=== PATIENT | female | born 1970 | race Caucasian/White ===

== ENCOUNTER 2020-12-11 13:41 | Outpatient (REF) | payer OTHER, SELFPAY ==
[2020-12-11 15:56] LABS: Cholesterol 173 mg/dL; HDL Cholesterol 62 mg/dL; LDL Cholesterol Calculated 99 mg/dl; Triglycerides 62 mg/dL
[2020-12-11 15:57] LABS: MANUAL DIFF FLAG NO
[2020-12-11 16:02] LABS: Basophils Percent Auto 0.7 % (0-2); Eosinophils Absolute Auto 0.2 X10*3/uL (0.0-0.4); Eosinophils Percent Auto 2.4 % (0-4); Hematocrit 40.5 % (37-47); Imm Gran Abs Auto 0.01 X10*3/uL (0.00-0.03); Imm Gran Pct Auto 0.2 % (0.0-0.4); Lymphocytes Absolute Auto 1.1 X10*3/uL (1.2-4.9); Lymphocytes Percent Auto 17.6 % (20-40); Mean Corpuscular HGB Conc 32.1 g/dl (31.0-35.0); Mean Corpuscular Hemoglobin 29.6 pg (27.0-33.0); Mean Corpuscular Volume 92.3 fL (80-98); Mean Platelet Volume 11.5 fL (9.4-12.3); Monocytes Absolute Auto 0.7 X10*3/uL (0.1-1.2); Monocytes Percent Auto 11.7 % (2-11); Neutrophils Absolute Auto 4.1 X10*3/uL (2.0-8.3); Neutrophils Percent Auto 67.4 % (45-73); Platelet Count 308 X10*3/uL (160-400); Red Blood Count 4.39 X10*6/uL (4.20-5.50); Red Cell Distribution Width 13.7 % (11.0-16.0); White Blood Count 6.1 X10*3/uL (4.8-10.8)
[2020-12-12 09:21] LABS: SARS COV2 IgG Negative (Negative)
== END 2020-12-11 13:42 | disposition home or self-care (01) ==
LOC: HO.LAB 13:41
PROVIDERS: PCP Internal Medicine; Visit Provider Internal Medicine
DX: Z00.00 Encounter for general adult medical examination without abnormal findings (principal); E11.9 Type 2 diabetes mellitus without complications; Z20.822 Contact with and (suspected) exposure to COVID-19
CPT/HCPCS: 36415; 80061; 85025; 86769

== ENCOUNTER 2021-02-01 10:33 | Outpatient (REF) | payer OTHER, SELFPAY | END 2021-02-01 10:34 | disposition home or self-care (01) | LOC: HO.LAB 10:33 | PROVIDERS: Visit Provider Nurse Practitioner Family | DX: J01.90 Acute sinusitis, unspecified (principal); R11.0 Nausea; Z20.822 Contact with and (suspected) exposure to COVID-19 | CPT/HCPCS: 36415; U0003; U0005 ==

== ENCOUNTER 2021-02-18 12:22 | Outpatient (REF) | payer OTHER, SELFPAY ==
--- NOTE | ~2021-02-18 | XR_ITS ---
EXAMINATION: XR CHEST CLINICAL INFORMATION: Shortness of breath COMPARISON: None TECHNIQUE: 2 views of the chest were obtained. FINDINGS: The cardiomediastinal silhouette is within normal limits. The lungs are well expanded. There is no focal consolidation, edema, or effusion. No pneumothorax. No acute osseous abnormality. XR/XR chest 2V IMPRESSION: No acute pulmonary process.
== END 2021-02-18 12:23 | disposition home or self-care (01) ==
LOC: HO.HMGCX 12:22
PROVIDERS: Visit Provider Nurse Practitioner Family
DX: R06.02 Shortness of breath (principal); R00.2 Palpitations; J01.90 Acute sinusitis, unspecified
CPT/HCPCS: 71046

== ENCOUNTER 2021-03-10 15:58 | Outpatient (REF) | payer OTHER, SELFPAY ==
[2021-03-10 16:28] LABS: MANUAL DIFF FLAG NO
[2021-03-10 16:37] LABS: Basophils Percent Auto 0.8 % (0-2); Eosinophils Absolute Auto 0.1 X10*3/uL (0.0-0.4); Eosinophils Percent Auto 2.2 % (0-4); Hematocrit 38.1 % (37-47); Hemoglobin 12.3 g/dl (12.0-16.0); Imm Gran Abs Auto 0.01 X10*3/uL (0.00-0.03); Imm Gran Pct Auto 0.3 % (0.0-0.4); Lymphocytes Absolute Auto 1.4 X10*3/uL (1.2-4.9); Lymphocytes Percent Auto 36.9 % (20-40); Mean Corpuscular HGB Conc 32.3 g/dl (31.0-35.0); Mean Corpuscular Hemoglobin 29.3 pg (27.0-33.0); Mean Corpuscular Volume 90.7 fL (80-98); Mean Platelet Volume 10.9 fL (9.4-12.3); Monocytes Absolute Auto 0.6 X10*3/uL (0.1-1.2); Monocytes Percent Auto 16.7 % (2-11); Neutrophils Absolute Auto 1.6 X10*3/uL (2.0-8.3); Neutrophils Percent Auto 43.1 % (45-73); Platelet Count 330 X10*3/uL (160-400); Red Cell Distribution Width 13.5 % (11.0-16.0); White Blood Count 3.7 X10*3/uL (4.8-10.8)
[2021-03-10 17:07] LABS: Anion Gap 13 (12-20); Blood Urea Nitrogen 21 mg/dL (9-16); Carbon Dioxide 24 mmol/L (22-29); Chloride 108 mmol/L (96-108); Estimated Glomerular Filt Rate 58; Glucose Random 89 mg/dL (60-115); Potassium 4.1 mmol/L (3.3-5.1); Sodium 141 mmol/L (135-145)
[2021-03-10 17:14] LABS: Calcium 10.8 mg/dL (8.4-10.2)
[2021-03-10 17:29] LABS: Thyroid Stimulating Hormone 0.52 uIU/mL (0.32-4.0)
== END 2021-03-10 15:59 | disposition home or self-care (01) ==
LOC: HO.LAB 15:58
PROVIDERS: PCP Internal Medicine; Visit Provider Internal Medicine
DX: Z00.00 Encounter for general adult medical examination without abnormal findings (principal); E03.9 Hypothyroidism, unspecified; R51.9 Headache, unspecified
CPT/HCPCS: 36415; 80048; 84443; 85025

== ENCOUNTER → 2021-03-17 13:24 | Outpatient (BNVA) | payer OTHER, SELFPAY | PROVIDERS: PCP Internal Medicine; Visit Provider Internal Medicine | DX: R00.2 Palpitations (principal); R07.89 Other chest pain; R06.02 Shortness of breath; U07.1 COVID-19 | CPT/HCPCS: 99202 ==

== ENCOUNTER 2021-06-16 12:21 | Outpatient (REF) | payer OTHER, SELFPAY ==
[2021-06-18 08:09] LABS: SARS COV2 IgG Positive (Negative)
== END 2021-06-16 12:22 | disposition home or self-care (01) ==
LOC: HO.LAB 12:21
PROVIDERS: PCP Internal Medicine; Visit Provider Internal Medicine
DX: Z20.822 Contact with and (suspected) exposure to COVID-19 (principal)
CPT/HCPCS: 36415; 86769

== ENCOUNTER 2021-08-27 07:46 | Outpatient (REF) | payer OTHER, SELFPAY ==
--- NOTE | ~2021-08-27 | MM_ITS ---
EXAMINATION: MM SCREENING DIGITAL BREAST TOMOSYNTHESIS, BILATERAL CLINICAL INFORMATION: Screening. Asymptomatic. The lifetime risk of breast cancer based on the Tyrer-Cuzick Model is 7%. COMPARISON: Mammography: 04/03/2019, 03/06/2018, 02/22/2018, 02/05/2017, 10/26/2016 TECHNIQUE: Digital breast tomosynthesis is performed in both the craniocaudal and mediolateral oblique views along with computer-aided detection (CAD). Synthesized 2D images are generated from the tomosynthesis. FINDINGS: The breasts are heterogeneously dense, which may obscure small masses (ACR BI-RADS breast composition Category c). The denser breast tissue composition is in the upper outer quadrants. Parenchymal pattern is similar to prior studies. There is no developing density or interval mass or architectural abnormality. There are scattered punctate calcifications again seen, greater on the right. The axilla and skin contours are unremarkable. No significant changes. MM/MM tomosynthesis screening BI IMPRESSION: No mammographic evidence of malignancy. ASSESSMENT: BI-RADS 2: Benign RECOMMENDATION: Routine annual mammography screening. This patient's information was entered into a reminder system with a target due date for their next mammogram.
== END 2021-08-27 07:47 | disposition home or self-care (01) ==
LOC: HO.MAMMO 07:46
PROVIDERS: PCP Internal Medicine; Visit Provider Internal Medicine
DX: Z12.31 Encounter for screening mammogram for malignant neoplasm of breast (principal)
CPT/HCPCS: 77063; 77067

== ENCOUNTER 2021-10-01 12:51 | Outpatient (REF) | payer OTHER, SELFPAY ==
[2021-10-01 14:04] LABS: C Reactive Protein 0.55 mg/dL (< or = 0.50)
[2021-10-01 14:45] LABS: Folate 14.8 ng/mL (> or = 4.0); Vitamin B12 419 pg/mL (200-900)
[2021-10-01 14:54] LABS: Erythrocyte Sedimentation Rate 8 MM/HR (0-20)
[2021-10-02 07:51] LABS: SARS COV2 IgG Positive (Negative)
[2021-10-05 05:51] LABS: Copper, serum 133 mcg/dL (70-175)
[2021-10-05 14:46] LABS: Anti Nuclear Antibody Pattern Nuclear, Speckled; Anti Nuclear Antibody Screen POSITIVE (NEGATIVE)
== END 2021-10-01 12:52 | disposition home or self-care (01) ==
LOC: HO.LAB 12:51
PROVIDERS: PCP Internal Medicine; Visit Provider Nurse Practitioner Family
DX: D72.819 Decreased white blood cell count, unspecified (principal); L40.9 Psoriasis, unspecified; R21 Rash and other nonspecific skin eruption; U07.1 COVID-19
CPT/HCPCS: 36415; 82525; 82550; 82607; 82746; 85652; 86038; 86039; 86140; 86769

== ENCOUNTER 2021-11-17 14:12 | Outpatient (REF) | payer OTHER, SELFPAY ==
[2021-11-17 15:24] LABS: Influenza A PCR NEGATIVE (Negative); Influenza B PCR NEGATIVE (Negative); Resp Syncy Virus RNA Qual PCR NEGATIVE (Negative); SARS COV2 PCR INHOUSE POSITIVE (Negative)
== END 2021-11-17 14:13 | disposition home or self-care (01) ==
LOC: HO.LNP 14:12
PROVIDERS: Visit Provider Physician Assistant
DX: Z20.822 Contact with and (suspected) exposure to COVID-19 (principal); H66.91 Otitis media, unspecified, right ear
CPT/HCPCS: 0241U

== ENCOUNTER → 2022-06-08 09:54 | Outpatient (BNVA) | payer OTHER, BC, SELFPAY | PROVIDERS: PCP Internal Medicine; Visit Provider Physician Assistant | DX: S46.811A Strain of other muscles, fascia and tendons at shoulder and upper arm level, right arm, initial encounter (principal); S46.311A Strain of muscle, fascia and tendon of triceps, right arm, initial encounter | CPT/HCPCS: 99202 ==

== ENCOUNTER 2022-07-04 19:36 | Outpatient (REF) | payer OTHER, BC, SELFPAY ==
--- NOTE | ~2022-07-04 | MR_ITS ---
EXAMINATION: MR SHOULDER WITHOUT CONTRAST, RIGHT CLINICAL INFORMATION: Right shoulder pain, strain COMPARISON: None TECHNIQUE: MRI of the shoulder without contrast was performed on a high-field scanner. FINDINGS: ROTATOR CUFF: Mild supraspinatus tendinosis. Linear interstitial partial tear of the distal subscapularis tendon. No muscle atrophy or fatty infiltration. BICEPS: Normal. CORACOACROMIAL ARCH: The undersurface of the acromion is laterally downsloping with no subacromial spur. Minimal acromioclavicular osteoarthritis. LABRUM/CAPSULE: Normal. GLENOHUMERAL JOINT/MARROW: Normal. MR/MR shoulder RT wo con IMPRESSION: Linear interstitial partial tear of the distal subscapularis tendon. Mild supraspinatus tendinosis. Laterally downsloping acromion.
== END 2022-07-04 19:37 | disposition home or self-care (01) ==
LOC: HO.MRI 19:36
PROVIDERS: Visit Provider Physician Assistant
DX: S46.311A Strain of muscle, fascia and tendon of triceps, right arm, initial encounter (principal); S46.001A Unspecified injury of muscle(s) and tendon(s) of the rotator cuff of right shoulder, initial encounter
CPT/HCPCS: 73221

== ENCOUNTER → 2022-07-07 12:09 | Outpatient (BNVA) | payer OTHER, BC, SELFPAY | PROVIDERS: PCP Internal Medicine; Visit Provider Orthopaedic Surgery | DX: S46.811A Strain of other muscles, fascia and tendons at shoulder and upper arm level, right arm, initial encounter (principal); M75.41 Impingement syndrome of right shoulder | CPT/HCPCS: 99212 ==

== ENCOUNTER → 2022-08-18 08:26 | Outpatient (BNVA) | payer OTHER, BC, SELFPAY | PROVIDERS: PCP Internal Medicine; Visit Provider Orthopaedic Surgery | DX: S46.811D Strain of other muscles, fascia and tendons at shoulder and upper arm level, right arm, subsequent encounter (principal); M75.41 Impingement syndrome of right shoulder | CPT/HCPCS: 99212; J1100 ==

== ENCOUNTER → 2022-09-29 15:32 | Outpatient (BNVA) | payer OTHER, BC, SELFPAY | PROVIDERS: PCP Internal Medicine; Visit Provider Orthopaedic Surgery | DX: M75.41 Impingement syndrome of right shoulder (principal); S46.811A Strain of other muscles, fascia and tendons at shoulder and upper arm level, right arm, initial encounter; X58.XXXA Exposure to other specified factors, initial encounter; Y93.9 Activity, unspecified; Y92.69 Other specified industrial and construction area as the place of occurrence of the external cause; Y99.0 Civilian activity done for income or pay | CPT/HCPCS: 99212 ==

== ENCOUNTER 2022-10-12 17:00 | Outpatient (RCR) | payer OTHER, BC, SELFPAY ==
--- NOTE | 2022-07-07 12:10 | MHC.PT.EP ---
[facility] [place] Office [place] Office [place] Office [address] [phone] F: [phone] F: [phone] F: [phone] F: [phone] Physical Therapy Plan of Care Date of Evaluation: Date of Surgery: N/A Diagnosis: (R) shoulder pain strain of other muscles, fascia and tendons at shoulder and upper arm (R) Assessment: Patient presents with (R) shoulder pain with confirmed on MRI partial subscapularis tear and supraspinatus tendinosis following lifting injury at work. She presents with (R) shoulder weakness, limited AROM , pain and impaired functional mobility with difficulty lifting and performing work duties, reaching overhead, and sleeping on involved side. Currently she is out of work. She will benefit from skilled physical therapy to restore to prior level of function and resume full duty work. Frequency and Duration: The patient will be seen 2x/week for 6 weeks Short Term Goals: 3 weeks Patient is able to lift R shoulder abduction AROM 180 degrees to reach high shelves. Patient demonstrates compliance and independence with HEP. Rehab Services Aide Goals: 6 weeks Patient presents with 5/5 strength (R) shoulder abduction to return to work full duty. Patient is able to lift 30 lbs waist to shoulder height for lifting at work with pain less than 3/10. Patient demonstrates self management of symptoms and independence with HEP. Treatment Plan: Modalities to reduce pain, spasms and effusion. Manual therapy to restore motion and function. Therapeutic exercise to improve strength and flexibility. Neuromuscular re-education for posture and balance. Therapeutic activities to return to functional activities of daily living. Electronically signed by: Hue Inman PT Please sign and return to therapist. Thank you for your referral.
--- NOTE | 2022-11-15 17:16 | MHC.PT.DC ---
[facility] [place] Office [place] Office [place] Office [address] [phone] F: [phone] F: [phone] F: [phone] F: [phone] Physical Therapy Discharge Report Diagnosis: (R) shoulder pain strain of other muscles, fascia and tendons at shoulder and upper arm (R) Date of Surgery: N/A Date of Evaluation: 07/07/22 Date of Discharge: 11/15/22 Treatments to Date: 13 Cancellations to Date: 13 No Shows to Date: 6 Discharge Status: Visit Non-compliance Discharge Summary: Per [facility] [place] policy the patient is being discharged for visit non-compliance. Per last assessment on 09/28/22: pt stated since starting PT she feels 80% better. pt still complains of persistent intermittent R shoulder pain as a result of a partial-thickness RTC tear. She is limited w/ end-range reaching in both abduction and flexion planes, lifting, pushing, and upper body dressing. 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 pt does have follow-up w/ Dr. Tanner (orthopedic) tomorrow. pt is expected to be able to lift 70# to return to work. She currently can tolerate 30# lifts x5 reps. pt has achieved all short term goals and is progressing towards achieving all senior living goals. pt reported a 20 point improvement on the self-reported outcome measure, SPADI compared to the initial eval. pt would continue to benefit from skilled PT intervention for an additional 2x/wk for 4 more weeks to continue to progress towards achieving all senior living goals and promote a full and safe return to regular duty at work to prevent future injury and healthcare burden. Electronically signed by: Peg Ojeda PT, DPT Please sign and return to therapist. Thank you for your referral.
== END 2022-11-15 17:16 | disposition home or self-care (01) ==
LOC: HO.PT 17:00
PROVIDERS: PCP Internal Medicine; Visit Provider Physician Assistant
DX: S46.811A Strain of other muscles, fascia and tendons at shoulder and upper arm level, right arm, initial encounter (principal); S46.311A Strain of muscle, fascia and tendon of triceps, right arm, initial encounter
CPT/HCPCS: 97110; 97140; 97161; 97164; 97530

== ENCOUNTER 2022-10-14 10:52 | Outpatient (REF) | payer BC, MEDICAID, SELFPAY ==
[2022-10-14 11:08] LABS: MANUAL DIFF FLAG NO
[2022-10-14 11:52] LABS: Basophils Percent Auto 0.5 % (0-2); Eosinophils Absolute Auto 0.1 X10*3/uL (0.0-0.4); Eosinophils Percent Auto 2.4 % (0-4); Hematocrit 38.8 % (37.0-47.0); Hemoglobin 12.4 g/dl (12.0-16.0); Imm Gran Abs Auto 0.01 X10*3/uL (0.00-0.03); Imm Gran Pct Auto 0.3 % (0.0-0.4); Lymphocytes Absolute Auto 1.1 X10*3/uL (1.2-4.9); Lymphocytes Percent Auto 28.9 % (20-40); Mean Corpuscular Volume 93.7 fL (80.0-98.0); Mean Platelet Volume 11.4 fL (9.4-12.3); Monocytes Absolute Auto 0.5 X10*3/uL (0.1-1.2); Monocytes Percent Auto 14.1 % (2-11); Neutrophils Percent Auto 53.8 % (45-73); Platelet Count 275 X10*3/uL (160-400); Red Blood Count 4.14 X10*6/uL (4.20-5.50); Red Cell Distribution Width 13.4 % (11.0-16.0); White Blood Count 3.7 X10*3/uL (4.8-10.8)
[2022-10-14 14:23] LABS: Alanine Aminotransferase 27 U/L (0-31); Albumin Level 4.5 g/dL (3.5-5.0); Alkaline Phosphatase 46 U/L (39-117); Anion Gap 11 (12-20); Aspartate Amino Transferase 31 U/L (5-31); Bilirubin Total 0.6 mg/dL (0.0-1.0); Blood Urea Nitrogen 14 mg/dL (9-16); Calcium 10.3 mg/dL (8.4-10.2); Carbon Dioxide 26 mmol/L (22-29); Chloride 104 mmol/L (96-108); Cholesterol 170 mg/dL; Estimated Glomerular Filt Rate > 60; Glucose Fasting 87 mg/dL (60-99); HDL Cholesterol 61 mg/dL; LDL Cholesterol Calculated 100 mg/dl; Potassium 4.6 mmol/L (3.3-5.1); Sodium 136 mmol/L (135-145); Thyroid Stimulating Hormone 0.97 uIU/mL (0.32-4.0); Total Protein 7.3 g/dL (6.5-8.0); Triglycerides 46 mg/dL
== END 2022-10-14 10:53 | disposition home or self-care (01) ==
LOC: HO.LAB 10:52
PROVIDERS: PCP Internal Medicine; Visit Provider Internal Medicine
DX: Z13.0 Encounter for screening for diseases of the blood and blood-forming organs and certain disorders involving the immune mechanism (principal); E78.5 Hyperlipidemia, unspecified; E03.9 Hypothyroidism, unspecified; I10 Essential (primary) hypertension
CPT/HCPCS: 36415; 80053; 80061; 84443; 85025

== ENCOUNTER 2022-11-04 17:53 | Outpatient (REF) | payer BC, MEDICAID, SELFPAY ==
--- NOTE | ~2022-11-04 | MR_ITS ---
EXAMINATION: MR CERVICAL SPINE WITHOUT CONTRAST CLINICAL INFORMATION: Radiculopathy, cervical region. COMPARISON: None available. TECHNIQUE: MRI of the cervical spine was performed using routine sequences without contrast. FINDINGS: The cervical vertebral bodies maintain normal heights. There is mild anterolisthesis of C4 on C5 and mild retrolisthesis of C6 on C7. Disc height loss appears moderate to severe at C5-C6 and C6-C7. Mild endplate edema is seen across the C6-C7 level. The cervical cord signal appears normal. The imaged portions of the intracranial contents and extraspinal soft tissues appear normal. SPINAL LEVELS: C2-C3: No posterior disc abnormality. Mild right facet arthropathy. No spinal canal or neural foraminal stenosis. C3-C4: No posterior disc abnormality. Moderate to severe right more than left facet arthropathy. No spinal canal or neural foraminal stenosis. C4-C5: Mild disc osteophyte complex with uncovertebral hypertrophy and severe bilateral facet arthropathy. Mild spinal canal stenosis and moderate to severe left and moderate right neural foraminal stenosis. C5-C6: Disc osteophyte complex with uncovertebral hypertrophy and severe right and moderate left facet arthropathy resulting in mild spinal canal stenosis and mild to moderate right and mild left neural foraminal stenosis. C6-C7: Mild disc osteophyte complex with left more than right uncovertebral hypertrophy and mild right facet arthropathy resulting in mild spinal canal stenosis and severe left and moderate right neural foraminal stenosis. C7-T1: No posterior disc abnormality. No spinal canal or neural foraminal stenosis. MR/MR cervical spine wo con IMPRESSION: Multilevel degenerative spondylosis without significant narrowing of the spinal canal. Neural foraminal stenosis appears moderate to severe on the left and moderate on the right at C4-C5, mild to moderate on the right at C5-C6, and severe on the left and moderate on the right at C6-C7.
== END 2022-11-04 17:54 | disposition home or self-care (01) ==
LOC: HO.MRI 17:53
PROVIDERS: Visit Provider Orthopaedic Surgery
DX: M54.12 Radiculopathy, cervical region (principal)
CPT/HCPCS: 72141

== ENCOUNTER → 2022-11-24 15:28 | Outpatient (BNVA) | payer BC, MEDICAID, SELFPAY | PROVIDERS: PCP Internal Medicine; Visit Provider Orthopaedic Surgery | DX: Z13.89 Encounter for screening for other disorder (principal) ==

== ENCOUNTER 2022-12-23 15:00 | Outpatient (RCR) | payer BC, MEDICAID, SELFPAY | END 2023-05-08 13:51 | disposition home or self-care (01) | LOC: HO.PT 15:00 | PROVIDERS: Visit Provider Physician Assistant Surgical | DX: M54.2 Cervicalgia (principal); M79.601 Pain in right arm | CPT/HCPCS: 97110; 97140; 97161 ==

== ENCOUNTER 2023-01-10 17:54 | Outpatient (REF) | payer BC, MEDICAID, SELFPAY ==
[2023-01-10 18:57] LABS: Influenza A PCR NEGATIVE (Negative); Influenza B PCR NEGATIVE (Negative); Resp Syncy Virus RNA Qual PCR NEGATIVE (Negative); SARS COV2 PCR INHOUSE NEGATIVE (Negative)
== END 2023-01-10 17:55 | disposition home or self-care (01) ==
LOC: HO.LNP 17:54
PROVIDERS: Visit Provider Nurse Practitioner Family
DX: R09.89 Other specified symptoms and signs involving the circulatory and respiratory systems (principal); Z20.822 Contact with and (suspected) exposure to COVID-19
CPT/HCPCS: 0241U

== ENCOUNTER → 2023-02-10 09:35 | Outpatient (BNVA) | payer BC, MEDICAID, SELFPAY | PROVIDERS: PCP Internal Medicine; Visit Provider Orthopaedic Surgery | DX: Z13.89 Encounter for screening for other disorder (principal) ==

== ENCOUNTER 2023-06-02 12:53 | Outpatient (AMB) | payer BC, MEDICAID, SELFPAY ==
[2023-06-02 12:54] VITALS: BP 120/80; PULSE 60; O2SAT 98; BMI 32.9
--- NOTE | 2023-06-02 12:54 | MHC.PC.OV ---
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: No Accompanied by: Self / Same As Patient Allergies cephalexin [Keflex] Allergy (Unknown, Verified 06/02/23 12:55) Unknown codeine Allergy (Unknown, Verified 06/02/23 12:55) Unknown Sulfa (Sulfonamide Antibiotics) Allergy (Unknown, Verified 06/02/23 12:55) Vertigo, rash Medication List - Last Reconciled 06/02/23 by Santy Flores MD acyclovir 5% 1 appl topical 6XD albuterol sulfate 90 mcg/actuation (ProAir HFA) 2 puffs inhalation Q4-6H PRN 30 days alclometasone 0.05% topical apremilast (Otezla) 30 mg PO BID epinephrine (EpiPen 2-Gabino) 0.3 mg (0.3 mL) IM ONCE PRN fenofibrate nanocrystallized 145 mg PO DAILY ibuprofen 800 mg PO TID ketoconazole 2% 1 appl topical lorazepam 0.5 mg PO BEDTIME PRN meloxicam 15 mg PO DAILY triamcinolone acetonide 0.1% 1 appl topical BID Tobacco use date assessed: 06/02/23 Dental Screening Dental Screen Date: 06/02/23 Did you have a dental visit in the last 12 months?: Yes Did you have a dental problem in the last 6 months where you did not have access to dental care?: No Was dental information given to patient?: Patient has dentist HPI Annual PE/ Stress HPI Details asthma hyperlipidemia and anxiety [facility] Medical History (Updated 06/02/23 @ 13:28 by Santy Flores MD) Anxiety Anxiety Strain of right triceps muscle Surgical History H/O left knee surgery History of ectopic History of elbow surgery History of umbilical hernia repair Family History Father Medical history unknown Mother Medical history unknown Family/Other Hyperlipidemia Diabetes Social History Housing: House Alcohol intake: current Alcohol intake frequency: a few times a month Patient Tobacco Use Status: Former Tobacco user e-Cigarette/Vaping Use: Never Used Second Hand Smoke Exposure: No service: No Current occupational status: employed 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 1. Little interest or pleasure in doing things: not at all 2. Feeling down, depressed, or hopeless: more than half the days 3. Trouble falling or staying asleep, or sleeping too much: not at all 4. Feeling tired or having little energy: not at all 5. Poor appetite or overeating: not at all 6. Feeling bad about yourself - or that you are a failure or have let yourself or your family down: not at all 7. Trouble concentrating on things, such as reading the newspaper or watching television: not at all 8. Moving or speaking so slowly that other people could have noticed. Or the opposite - being so fidgety or restless that you have been moving around a lot more than usual: not at all 9. Thoughts that you would be better off or of hurting yourself in some way: not at all Total score: 2 Depression Screening Interpretation: Negative 17020 - PHQ-9 Billing: Yes Source: Developed by Drs. Sundar Abbasi, Latia Kwon, Bran Manzanares and colleagues, with an educational madison from [email or web address]. Thrive Questionnaire Date Thrive assessed: 06/02/23 I am a: Patient What is your living situation today?: I have a steady place to live Within the past 12 months, did the food you bought not last and you didn't have the money to get more?: Never true Within the past 12 months, did you worry whether your food would run out before you got money to buy more?: Never true Do you have trouble paying for medicines?: No Do you have trouble getting transportation to medical appointments?: No Do you have trouble paying your heating and electricity bill?: No Do you have trouble taking care of your child, family member or friend?: No Do you have trouble with day-to-day activities such as bathing, preparing meals, shopping, managing finances, etc.?: No Are you currently unemployed and looking for a job?: No Are you interested in more education?: No Please select the resources that you would like help with: None Currently or been in a relationship where the following occur: no concerns reported AUDIT C Alcohol Use Questionnaire (AUDIT-C) 1. How often do you have a drink containing alcohol?: Monthly or less 2. How many drinks containing alcohol do you have on a typical day when you are drinking?: 1 or 2 3. How often do you have six or more drinks on one occasion?: Never Total Score: 1 AJN-7 AMB Questionnaire JAN-7 Date JAN - 7 assessed: 06/02/23 Feeling nervous, anxious, or on edge: 3 = Nearly every day Not being able to stop or control worryin = Nearly every day Worrying too much about different things: 3 = Nearly every day Trouble relaxin = Nearly every day Being so restless that it is hard to sit still: 0 = Not at all Becoming easily annoyed or irritable: 3 = Nearly every day Feeling afraid as if something awful might happen: 1 = Several days Total JAN-7 score (0-4 normal; 5-9 mild; 10-14 moderate; 15-21 severe): 16 Source: Developed by Drs. Sundar Abbasi, Latia Kwon, Bran Manzanares and colleagues, with an educational madison from [email or web address]. JAN-7 Assessment Billing JAN-7 Assessment Tool: JAN-7 Assessment 51002 Review of Systems Const Denies chills, Denies fatigue, Denies headache(s) and Denies weight loss Eyes Denies change in vision, Denies diplopia and Denies eye pain ENT Denies vertigo, Denies dizziness, Denies headache(s) and Denies nasal discharge Card Denies chest pain, Denies rapid heart rate and Denies dyspnea on exertion Resp Denies chest congestion, Denies cough, Denies pain with cough and Denies dyspnea on exertion GI Denies abdominal pain, Denies hematochezia and Denies change in bowel habits Musc Denies myalgias, Denies arthralgias and Denies joint swelling Skin/Breast Denies lesions and Denies unusual bruising Neuro Denies vertigo, Denies dizziness, Denies headache(s) and Denies focal weakness Endo Denies fatigue Physical exam (Primary Care) Vital Signs: Last Vital Signs Pulse 60 06/02/23 12:54 BP 120/80 06/02/23 12:54 Pulse Ox 98 06/02/23 12:54 Oxygen Delivery Method Room Air 06/02/23 12:54 BMI result Body Mass Index 32.9 Tobacco/Smoking Status: Tobacco use Status Tobacco use date assessed 06/02/23 06/02/23 13:00 Patient Tobacco Use Status Former Tobacco user 06/02/23 13:00 e-Cigarette/Vaping Use Never Used 06/02/23 13:00 PHQ-9: PHQ-9 Score PHQ-9: Total score 2 06/02/23 13:00 Depression Screening Interpretation: Negative Thrive Assessment: Date of Thrive Assessment Date Thrive assessed 06/02/23 06/02/23 13:00 Currently or been in a relationship where the following occur: no concerns reported Const General: cooperative, healthy appearing and no acute distress Orientation/consciousness: oriented to person, oriented to place and oriented to time HENMT Head: Yes normal to inspection, Yes normocephalic and Yes atraumatic Mouth: Normal oral and palatal mucosa present and tongue normal Throat: Yes posterior oropharynx normal and Yes uvula midline Eyes General: appearance normal, both eyes and all related structures Neck Neck: Yes normal visual inspection, Yes full ROM and Yes no lymphadenopathy Thyroid: Thyroid normal Carotids: normal carotid upstroke Chest Chest palpation & inspection: normal inspection of the chest Resp Effort & Inspection: normal respiratory effort and able to speak in complete sentences Auscultation: clear to auscultation bilaterally Cardio Jugular venous distension: no JVD Palpation: normal PMI Rate: regular rate Rhythm: regular rhythm Heart sounds: S1 normal heart sound present and S2 normal heart sound present GI Inspection: Yes normal to inspection Palpation (GI): Soft to palpation and No hepatosplenomegaly present Auscultation: normal bowel sounds General: Yes no CVA tenderness Back/Spine/Pelvis Back: no CVA tenderness Skin General skin exam: no rashes or lesions noted Neuro General: oriented to person, oriented to place and oriented to time Extrem General: Yes normal to inspection and Yes full ROM Assessment and Plan Assessment & Plan (1) Hyperlipidemia: Code(s): E78.5 - Hyperlipidemia, unspecified Plan: stable; same rx (2) Anxiety: Code(s): F41.9 - Anxiety disorder, unspecified Plan: per psych (3) Physical exam: Code(s): Z00.00 - Encounter for general adult medical examination without abnormal findings Plan: do labs Orders: Orders Comprehensive [place]. Panel Fast Today N28.9 - Disorder of kidney and ureter, unspecified Lipid Panel Today E78.5 - Hyperlipidemia, unspecified Thyroid Stimulating Hormone Today E03.9 - Hypothyroidism, unspecified Complete Blood Count Auto Diff Today D64.9 - Anemia, unspecified Medications: New lorazepam 0.5 mg (1/2 x 1 mg) PO BID PRN 60 tabs 3RF anxiety Coding Level of Care Code Est Pt Prev Care 40-64y(87476) Diagnoses Hyperlipidemia E78.5 Anxiety F41.9 Physical exam Z00.00 Additional Codes JAN-7 Assessment Billing - JAN-7 Assessment Tool: JAN-7 Assessment [id number] ([id number])
== END 2023-06-02 13:22 | disposition home or self-care (01) ==
PROVIDERS: PCP Internal Medicine; Visit Provider Internal Medicine
DX: Z00.00 Encounter for general adult medical examination without abnormal findings (principal); F41.9 Anxiety disorder, unspecified; E78.5 Hyperlipidemia, unspecified
CPT/HCPCS: 99396

== ENCOUNTER 2023-07-25 12:15 | Outpatient (REF) | payer BC, MEDICAID, SELFPAY ==
[2023-07-25 12:26] LABS: MANUAL DIFF FLAG NO
[2023-07-25 12:43] LABS: Basophils Percent Auto 0.6 % (0-2); Eosinophils Absolute Auto 0.1 X10*3/uL (0.0-0.4); Eosinophils Percent Auto 3.3 % (0-4); Hematocrit 38.3 % (37.0-47.0); Hemoglobin 12.7 g/dl (12.0-16.0); Lymphocytes Absolute Auto 1.1 X10*3/uL (1.2-4.9); Lymphocytes Percent Auto 33.4 % (20-40); Mean Corpuscular HGB Conc 33.2 g/dl (31.0-35.0); Mean Corpuscular Hemoglobin 30.3 pg (27.0-33.0); Mean Corpuscular Volume 91.4 fL (80.0-98.0); Mean Platelet Volume 11.1 fL (9.4-12.3); Monocytes Absolute Auto 0.6 X10*3/uL (0.1-1.2); Monocytes Percent Auto 17.5 % (2-11); Neutrophils Absolute Auto 1.5 x10*3/uL (2.0-8.3); Neutrophils Percent Auto 45.2 % (45-73); Platelet Count 248 X10*3/uL (160-400); Red Blood Count 4.19 X10*6/uL (4.20-5.50); Red Cell Distribution Width 12.8 % (11.0-16.0); White Blood Count 3.4 X10*3/uL (4.8-10.8)
[2023-07-25 13:38] LABS: Alanine Aminotransferase 24 U/L (0-31); Albumin Level 4.1 g/dL (3.5-5.0); Alkaline Phosphatase 42 U/L (39-117); Anion Gap 11 (12-20); Aspartate Amino Transferase 25 U/L (5-31); Bilirubin Total 0.5 mg/dL (0.0-1.0); Blood Urea Nitrogen 19 mg/dL (9-16); Calcium 10.1 mg/dL (8.4-10.2); Carbon Dioxide 23 mmol/L (22-29); Chloride 112 mmol/L (96-108); Cholesterol 159 mg/dL (<200); Estimated Glomerular Filt Rate > 60; Glucose Fasting 85 mg/dL (60-99); HDL Cholesterol 53 mg/dL (>40); LDL Cholesterol Calculated 96 mg/dL (<100); Potassium 3.8 mmol/L (3.3-5.1); Sodium 142 mmol/L (135-145); Total Protein 6.9 g/dL (6.5-8.0); Triglycerides 53 mg/dL (<150)
[2023-07-25 13:44] LABS: Thyroid Stimulating Hormone 0.93 uIU/mL (0.32-4.0)
== END 2023-07-25 12:16 | disposition home or self-care (01) ==
LOC: HO.LAB 12:15
PROVIDERS: PCP Internal Medicine; Visit Provider Internal Medicine
DX: N28.9 Disorder of kidney and ureter, unspecified (principal); D64.9 Anemia, unspecified; E03.9 Hypothyroidism, unspecified; E78.5 Hyperlipidemia, unspecified
CPT/HCPCS: 36415; 80053; 80061; 84443; 85025

== ENCOUNTER 2023-10-23 14:04 | Outpatient (AMB) | payer BC, MEDICAID, SELFPAY ==
--- NOTE | 2023-10-23 14:06 | MHC.PC.OV ---
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 Office Based Only: Not Required per policy Accompanied by: Self / Same As Patient Allergies cephalexin [Keflex] Allergy (Unknown, Verified 10/23/23 14:07) Unknown codeine Allergy (Unknown, Verified 10/23/23 14:07) Unknown Sulfa (Sulfonamide Antibiotics) Allergy (Unknown, Verified 10/23/23 14:07) Vertigo, rash Medication List - Last Reconciled 10/24/23 by Santy Flores MD acyclovir 5% 1 appl topical 6XD albuterol sulfate 90 mcg/actuation (ProAir HFA) 2 puffs inhalation Q4-6H PRN 30 days alclometasone 0.05% topical apremilast (Otezla) 30 mg PO BID citalopram (Celexa) 20 mg PO DAILY epinephrine (EpiPen 2-Gabino) 0.3 mg (0.3 mL) IM ONCE PRN fenofibrate nanocrystallized 145 mg PO DAILY ibuprofen 800 mg PO TID ketoconazole 2% 1 appl topical lorazepam 0.5 mg PO BEDTIME PRN lorazepam 0.5 mg (1/2 x 1 mg) PO BID PRN triamcinolone acetonide 0.1% 1 appl topical BID Tobacco use date assessed: 06/02/23 Dental Screening Dental Screen Date: 10/23/23 Did you have a dental visit in the last 12 months?: Yes Did you have a dental problem in the last 6 months where you did not have access to dental care?: No Was dental information given to patient?: Patient has dentist HPI Weight loss/ Loss of appetite HPI Details anxiety; stable PFSH Medical History Strain of right triceps muscle Anxiety Anxiety Surgical History History of ectopic History of elbow surgery H/O left knee surgery History of umbilical hernia repair Family History Father Medical history unknown Mother Medical history unknown Family/Other Hyperlipidemia Diabetes Social History Housing: House Alcohol intake: current Alcohol intake frequency: a few times a month Patient Tobacco Use Status: Former Tobacco user e-Cigarette/Vaping Use: Never Used Second Hand Smoke Exposure: No service: No Current occupational status: employed 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 Sundar Abbasi, Latia Kwon, Bran Manzanares and colleagues, with an educational madison from [employer]. Review of Systems Const Denies chills, Denies headache(s) and Denies weight loss ENT Denies headache(s) Card Denies chest pain, Denies syncope, Denies irregular heart rhythm and Denies dyspnea Resp Denies chest congestion, Denies cough and Denies dyspnea GI Denies abdominal pain, Denies change in stool character, Denies nausea and Denies vomiting Musc Denies deformity and Denies joint swelling Neuro Denies syncope and Denies headache(s) Physical exam (Primary Care) Vital Signs: Last Vital Signs Pulse 60 10/23/23 14:07 BP 110/70 10/23/23 14:07 Pulse Ox 99 10/23/23 14:07 Oxygen Delivery Method Room Air 10/23/23 14:07 BMI result Body Mass Index 29.9 Tobacco/Smoking Status: Tobacco use Status Tobacco use date assessed 06/02/23 10/23/23 14:12 Patient Tobacco Use Status Former Tobacco user 10/23/23 14:12 e-Cigarette/Vaping Use Never Used 10/23/23 14:12 Thrive Assessment: Date of Thrive Assessment Date Thrive assessed 06/02/23 10/23/23 14:12 Const General: cooperative, comfortable, no acute distress and alert Neck Neck: Yes no lymphadenopathy Thyroid: Thyroid normal Resp Effort & Inspection: normal respiratory effort Auscultation: clear to auscultation bilaterally Percussion: percussion normal Cardio Jugular venous distension: no JVD Palpation: normal PMI Rate: regular rate Rhythm: regular rhythm Heart sounds: S1 normal heart sound present and S2 normal heart sound present GI Inspection: Yes normal to inspection Palpation (GI): No hepatosplenomegaly present Skin General skin exam: no rashes or lesions noted Extrem General: Yes no clubbing, cyanosis or edema Assessment and Plan Assessment & Plan (1) Anxiety: Code(s): F41.9 - Anxiety disorder, unspecified Plan: cont rx Orders: Orders Complete Blood Count Auto Diff 10/23/23 D64.9 - Anemia, unspecified Lipid Panel 10/23/23 E78.5 - Hyperlipidemia, unspecified Comprehensive [place]. Panel Fast 10/23/23 N28.9 - Disorder of kidney and ureter, unspecified Thyroid Stimulating Hormone 10/23/23 E03.9 - Hypothyroidism, unspecified Medications: New citalopram (Celexa) 20 mg PO DAILY 30 tabs 3RF Coding Level of Care Code Est Pt Level 3 (59675) Diagnoses Anxiety F41.9
[2023-10-23 14:07] VITALS: BP 110/70; PULSE 60; O2SAT 99; BMI 29.9
== END 2023-10-23 14:23 | disposition home or self-care (01) ==
PROVIDERS: PCP Internal Medicine; Visit Provider Internal Medicine
DX: F41.9 Anxiety disorder, unspecified (principal)
CPT/HCPCS: 99213

== ENCOUNTER 2023-10-27 10:26 | Outpatient (REF) | payer BC, MEDICAID, SELFPAY ==
[2023-10-27 10:35] LABS: MANUAL DIFF FLAG NO
[2023-10-27 10:55] LABS: Basophils Percent Auto 0.5 % (0-2); Eosinophils Absolute Auto 0.1 X10*3/uL (0.0-0.4); Eosinophils Percent Auto 2.9 % (0-4); Hematocrit 35.9 % (37.0-47.0); Hemoglobin 11.8 g/dl (12.0-16.0); Imm Gran Abs Auto 0.01 X10*3/uL (0.00-0.03); Imm Gran Pct Auto 0.3 % (0.0-0.4); Lymphocytes Absolute Auto 1.1 X10*3/uL (1.2-4.9); Lymphocytes Percent Auto 28.5 % (20-40); Mean Corpuscular HGB Conc 32.9 g/dl (31.0-35.0); Mean Corpuscular Hemoglobin 29.9 pg (27.0-33.0); Mean Corpuscular Volume 90.9 fL (80.0-98.0); Mean Platelet Volume 11.2 fL (9.4-12.3); Monocytes Absolute Auto 0.6 X10*3/uL (0.1-1.2); Monocytes Percent Auto 14.6 % (2-11); Neutrophils Percent Auto 53.2 % (45-73); Platelet Count 250 X10*3/uL (160-400); Red Blood Count 3.95 X10*6/uL (4.20-5.50); Red Cell Distribution Width 13.6 % (11.0-16.0); White Blood Count 3.8 X10*3/uL (4.8-10.8)
[2023-10-27 11:29] LABS: Alanine Aminotransferase 113 U/L (0-31); Albumin Level 4.4 g/dL (3.5-5.0); Alkaline Phosphatase 49 U/L (39-117); Anion Gap 12 (12-20); Aspartate Amino Transferase 112 U/L (5-31); Bilirubin Total 0.6 mg/dL (0.0-1.0); Blood Urea Nitrogen 27 mg/dL (9-16); Calcium 10.2 mg/dL (8.4-10.2); Carbon Dioxide 24 mmol/L (22-29); Chloride 107 mmol/L (96-108); Cholesterol 145 mg/dL (<200); Estimated Glomerular Filt Rate > 60; Glucose Fasting 80 mg/dL (60-99); HDL Cholesterol 48 mg/dL (>40); LDL Cholesterol Calculated 87 mg/dL (<100); Sodium 139 mmol/L (135-145); Total Protein 7.4 g/dL (6.5-8.0); Triglycerides 51 mg/dL (<150)
== END 2023-10-27 10:27 | disposition home or self-care (01) ==
LOC: HO.LAB 10:26
PROVIDERS: PCP Internal Medicine; Visit Provider Internal Medicine
DX: D64.9 Anemia, unspecified (principal); E78.5 Hyperlipidemia, unspecified; N28.9 Disorder of kidney and ureter, unspecified; E03.9 Hypothyroidism, unspecified
CPT/HCPCS: 36415; 80053; 80061; 84443; 85025

== ENCOUNTER 2023-11-02 15:13 | Outpatient (REF) | payer BC, MEDICAID, SELFPAY ==
[2023-11-02 16:03] LABS: Alanine Aminotransferase 98 U/L (0-31); Albumin Level 4.2 g/dL (3.5-5.0); Alkaline Phosphatase 47 U/L (39-117); Aspartate Amino Transferase 93 U/L (5-31); Bilirubin Direct 0.2 mg/dL (0.0-0.5); Bilirubin Total 0.5 mg/dL (0.0-1.0)
[2023-11-03 08:02] LABS: ~HepC Num1 0.08 S/CO (0.00-0.79); ~Hepatitis C Antibody Nonreactive (Nonreactive)
== END 2023-11-02 15:14 | disposition home or self-care (01) ==
LOC: HO.LAB 15:13
PROVIDERS: PCP Internal Medicine; Visit Provider Internal Medicine
DX: R89.9 Unspecified abnormal finding in specimens from other organs, systems and tissues (principal); Z20.2 Contact with and (suspected) exposure to infections with a predominantly sexual mode of transmission
CPT/HCPCS: 36415; 80076; 86803

== ENCOUNTER 2023-11-07 13:25 | Outpatient (AMB) | payer BC, MEDICAID, SELFPAY ==
--- NOTE | 2023-11-07 13:31 | MHC.PC.OV ---
Intake Visit Reasons: Stomach Discomfort Intake Note: pt states stomach discomfort due to medication intake. 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 Allergies cephalexin [Keflex] Allergy (Unknown, Verified 11/07/23 13:31) Unknown codeine Allergy (Unknown, Verified 11/07/23 13:31) Unknown Sulfa (Sulfonamide Antibiotics) Allergy (Unknown, Verified 11/07/23 13:31) Vertigo, rash Medication List - Last Reconciled 11/07/23 by Santy Flores MD acyclovir 5% 1 appl topical 6XD albuterol sulfate 90 mcg/actuation (ProAir HFA) 2 puffs inhalation Q4-6H PRN 30 days alclometasone 0.05% topical apremilast (Otezla) 30 mg PO BID citalopram (Celexa) 20 mg PO DAILY epinephrine (EpiPen 2-Gabino) 0.3 mg (0.3 mL) IM ONCE PRN fenofibrate nanocrystallized 145 mg PO DAILY ibuprofen 800 mg PO TID ketoconazole 2% 1 appl topical lorazepam 0.5 mg PO BEDTIME PRN lorazepam 0.5 mg (1/2 x 1 mg) PO BID PRN prednisone 50 mg PO DAILY triamcinolone acetonide 0.1% 1 appl topical BID Tobacco use date assessed: 11/07/23 HPI Stomach Discomfort HPI Details diagnosed 2 days ago with RSV; given steroids but has abd pain from it PFSH Medical History Strain of right triceps muscle Anxiety Anxiety Surgical History History of ectopic History of elbow surgery H/O left knee surgery History of umbilical hernia repair Family History Father Medical history unknown Mother Medical history unknown Family/Other Hyperlipidemia Diabetes Social History Housing: House Alcohol intake: current Alcohol intake frequency: a few times a month Patient Tobacco Use Status: Former Tobacco user e-Cigarette/Vaping Use: Never Used Second Hand Smoke Exposure: No service: No Current occupational status: employed 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 How often do you have a drink containing alcohol?: Monthly or less 2. How many drinks containing alcohol do you have on a typical day when you are drinking?: 1 or 2 3. How often do you have six or more drinks on one occasion?: Never Total Score: 1 JAN-7 AMB Questionnaire JAN-7 Date JAN - 7 assessed: 06/02/23 Source: Developed by Drs. Sundar Abbasi, Latia Kwon, Bran Manzanares and colleagues, with an educational madison from [employer]. Review of Systems Const Denies chills, Denies headache(s) and Denies weight loss ENT Denies headache(s) Card Denies chest pain, Denies syncope, Denies irregular heart rhythm and Denies dyspnea Resp Denies chest congestion, Denies cough and Denies dyspnea GI Denies change in stool character, Denies nausea and Denies vomiting Musc Denies deformity and Denies joint swelling Neuro Denies syncope and Denies headache(s) Physical exam (Primary Care) Tobacco/Smoking Status: Tobacco use Status Tobacco use date assessed 11/07/23 11/07/23 13:35 Patient Tobacco Use Status Former Tobacco user 11/07/23 13:35 e-Cigarette/Vaping Use Never Used 11/07/23 13:35 Thrive Assessment: Date of Thrive Assessment Date Thrive assessed 06/02/23 11/07/23 13:35 Telehealth Telehealth Location of provider rendering services: practice address Location of patient: address on file Patient Identification confirmed using: Name, : Yes Telehealth method: voice only [phone]) Patient verbally consented to treatment: Yes Patient verbally consented to billing insurance company: Yes Patient informed of any privacy concerns related to visit: Yes Minutes spent on Phone/Video with Pt.: 15 (minutes) Assessment and Plan Assessment & Plan (1) RSV (acute bronchiolitis due to respiratory syncytial virus): Code(s): J21.0 - Acute bronchiolitis due to respiratory syncytial virus Plan: can stop the steroids Coding Level of Care Code Tele Est Pt Level 3 (51874) Diagnoses RSV (acute bronchiolitis due to respiratory syncytial virus) J21.0
== END 2023-11-07 14:07 | disposition home or self-care (01) ==
PROVIDERS: PCP Internal Medicine; Visit Provider Internal Medicine
DX: J21.0 Acute bronchiolitis due to respiratory syncytial virus (principal)
CPT/HCPCS: 99442

== ENCOUNTER 2023-12-13 14:56 | Outpatient (REF) | payer BC, MEDICAID, SELFPAY | END 2023-12-13 14:57 | disposition home or self-care (01) | LOC: HO.MAMMO 14:56 | PROVIDERS: PCP Internal Medicine; Visit Provider Internal Medicine | DX: Z12.31 Encounter for screening mammogram for malignant neoplasm of breast (principal) | CPT/HCPCS: 77063; 77067 ==

== ENCOUNTER → 2023-12-13 15:15 | Outpatient (BNV) | payer BC, MEDICAID, SELFPAY | PROVIDERS: PCP Internal Medicine; Visit Provider Radiology Diagnostic Radiology | DX: Z12.31 Encounter for screening mammogram for malignant neoplasm of breast (principal) | CPT/HCPCS: 77063; 77067 ==

== ENCOUNTER 2023-12-15 08:24 | Outpatient (REF) | payer BC, MEDICAID, SELFPAY ==
--- NOTE | ~2023-12-15 | US_ITS ---
EXAMINATION: US ABDOMEN COMPLETE CLINICAL INFORMATION: Unspecified abdominal pain. COMPARISON: None available. TECHNIQUE: Real-time imaging of the abdominal viscera. FINDINGS: PANCREAS: Normal. ABDOMINAL AORTA: The proximal, mid, and distal segments are normal in caliber. INFERIOR VENA CAVA: Visualized portions are normal. LIVER: The liver is normal in size. The liver contour is normal. Parenchymal echogenicity is normal. No focal hepatic lesion. There is no intrahepatic biliary duct dilatation seen. GALLBLADDER: Surgically absent. COMMON BILE DUCT: Normal in caliber measuring 0.2 cm in diameter. RIGHT KIDNEY: 1 cm benign appearing cyst in. No follow-up imaging is recommended. There are two 5 mm nonobstructing calculi in the lower pole. No hydronephrosis The kidney measures 11.2 cm in maximum dimension. LEFT KIDNEY: Mild hydronephrosis. No renal calculi or focal parenchymal lesions. The kidney measures 10.9 cm in maximum dimension. SPLEEN: Normal. The spleen measures 10.4 cm in maximum dimension. FREE FLUID: None. US/US abdomen complete IMPRESSION: Nonobstructing calculi in the right lower kidney. Mild left hydronephrosis of undetermined etiology. Consider CT urogram for further evaluation.
== END 2023-12-15 08:25 | disposition home or self-care (01) ==
LOC: HO.US 08:24
PROVIDERS: PCP Internal Medicine; Visit Provider Internal Medicine
DX: R10.9 Unspecified abdominal pain (principal)
CPT/HCPCS: 76700

== ENCOUNTER 2024-01-23 14:00 | Outpatient (AMB) | payer BC, MEDICAID, SELFPAY ==
[2024-01-23 14:02] VITALS: BP 110/78; PULSE 55; O2SAT 99; BMI 29.1
--- NOTE | 2024-01-23 14:02 | MHC.PC.OV ---
Vital Signs 01/23/24 14:02 Height 5 ft 1 in Weight 154 lb BMI 29.1 BP 110/78 Blood Pressure Location Lt brachial Position Sitting Pulse 55 Pulse Source Pulse Oximeter Pulse Oximetry (%) 99 Oxygen Delivery Method Room Air Intake Visit Reasons: right side ear pain Asset Availability Leader Required: No Casting Cleaner: Not Required per policy Accompanied by: Self / Same As Patient Allergies cephalexin [Keflex] Allergy (Unknown, Verified 01/23/24 14:02) Unknown codeine Allergy (Unknown, Verified 01/23/24 14:02) Unknown Sulfa (Sulfonamide Antibiotics) Allergy (Unknown, Verified 01/23/24 14:02) Vertigo, rash Medication List - Last Reconciled 01/24/24 by Santy lFores MD acyclovir 5% 1 appl topical 6XD albuterol sulfate 90 mcg/actuation (ProAir HFA) 2 puffs inhalation Q4-6H PRN 30 days apremilast (Otezla) 30 mg PO BID azithromycin take 500 mg today (day 1), then 250 mg for 4 days (days 2-5) orally; citalopram (Celexa) 20 mg PO DAILY epinephrine (EpiPen 2-Gabino) 0.3 mg (0.3 mL) IM ONCE PRN fenofibrate nanocrystallized 145 mg PO DAILY ibuprofen 800 mg PO TID lorazepam 0.5 mg PO BEDTIME PRN lorazepam 0.5 mg (1/2 x 1 mg) PO BID PRN Tobacco use date assessed: 01/23/24 Dental Screening Dental Screen Date: 01/23/24 Did you have a dental visit in the last 12 months?: Yes Did you have a dental problem in the last 6 months where you did not have access to dental care?: No Was dental information given to patient?: Patient has dentist HPI right side ear pain HPI Details right ear pain for a week PFSH Medical History Strain of right triceps muscle Anxiety Anxiety Surgical History History of ectopic History of elbow surgery H/O left knee surgery History of umbilical hernia repair Family History Father Medical history unknown Mother Medical history unknown Family/Other Hyperlipidemia Diabetes Social History Housing: House Alcohol intake: current Alcohol intake frequency: a few times a month Patient Tobacco Use Status: Former Tobacco user e-Cigarette/Vaping Use: Never Used Second Hand Smoke Exposure: No service: No Current occupational status: employed 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 1. Little interest or pleasure in doing things: nearly every day 2. Feeling down, depressed, or hopeless: more than half the days 3. Trouble falling or staying asleep, or sleeping too much: nearly every day 4. Feeling tired or having little energy: nearly every day 5. Poor appetite or overeating: nearly every day 6. Feeling bad about yourself - or that you are a failure or have let yourself or your family down: more than half the days 7. Trouble concentrating on things, such as reading the newspaper or watching television: more than half the days 8. Moving or speaking so slowly that other people could have noticed. Or the opposite - being so fidgety or restless that you have been moving around a lot more than usual: not at all 9. Thoughts that you would be better off or of hurting yourself in some way: not at all Total score: 18 [id number] - PHQ-9 Billing: Yes Source: Developed by Drs. Sundar Abbasi, Latia Kwon, Bran Manzanares and colleagues, with an educational madison from [employer]. Thrive Questionnaire Date Thrive assessed: 01/23/24 I am a: Patient What is your living situation today?: I have a steady place to live Within the past 12 months, did the food you bought not last and you didn't have the money to get more?: Never true Within the past 12 months, did you worry whether your food would run out before you got money to buy more?: Never true Do you have trouble paying for medicines?: No Do you have trouble getting transportation to medical appointments?: No Do you have trouble paying your heating and electricity bill?: No Do you have trouble taking care of your child, family member or friend?: No Do you have trouble with day-to-day activities such as bathing, preparing meals, shopping, managing finances, etc.?: No Are you currently unemployed and looking for a job?: No Are you interested in more education?: No Please select the resources that you would like help with: None THRIVE Score: 0 AUDIT C Alcohol Use Questionnaire (AUDIT-C) 1. How often do you have a drink containing alcohol?: Monthly or less 2. How many drinks containing alcohol do you have on a typical day when you are drinking?: 1 or 2 3. How often do you have six or more drinks on one occasion?: Never Total Score: 1 JAN-7 AMB Questionnaire JAN-7 Date JAN - 7 assessed: 01/23/24 Feeling nervous, anxious, or on edge: 0 = Not at all Not being able to stop or control worryin = Not at all Worrying too much about different things: 0 = Not at all Trouble relaxin = Not at all Being so restless that it is hard to sit still: 0 = Not at all Becoming easily annoyed or irritable: 0 = Not at all Feeling afraid as if something awful might happen: 0 = Not at all Total JAN-7 score (0-4 normal; 5-9 mild; 10-14 moderate; 15-21 severe): 0 Source: Developed by Drs. Sundar Abbasi, Latia Kwon, Bran Manzanares and colleagues, with an educational madison from [employer]. Review of Systems Const Denies chills, Denies headache(s) and Denies weight loss ENT Denies headache(s) Card Denies chest pain, Denies syncope, Denies irregular heart rhythm and Denies dyspnea Resp Denies chest congestion, Denies cough and Denies dyspnea GI Denies abdominal pain, Denies change in stool character, Denies nausea and Denies vomiting Musc Denies deformity and Denies joint swelling Neuro Denies syncope and Denies headache(s) Physical exam (Primary Care) Vital Signs: Last Vital Signs Pulse 55 01/23/24 14:02 BP 110/78 01/23/24 14:02 Pulse Ox 99 01/23/24 14:02 Oxygen Delivery Method Room Air 01/23/24 14:02 BMI result Body Mass Index 29.1 Tobacco/Smoking Status: Tobacco use Status Tobacco use date assessed 01/23/24 01/23/24 14:03 Patient Tobacco Use Status Former Tobacco user 01/23/24 14:03 e-Cigarette/Vaping Use Never Used 01/23/24 14:03 PHQ-9: PHQ-9 Score PHQ-9: Total score 18 01/23/24 14:11 Thrive Assessment: Date of Thrive Assessment Date Thrive assessed 01/23/24 01/23/24 14:03 Const General: cooperative, comfortable, no acute distress and alert HENMT Other: right om Neck Neck: Yes no lymphadenopathy Thyroid: Thyroid normal Resp Effort & Inspection: normal respiratory effort Auscultation: clear to auscultation bilaterally Percussion: percussion normal Cardio Jugular venous distension: no JVD Palpation: normal PMI Rate: regular rate Rhythm: regular rhythm Heart sounds: S1 normal heart sound present and S2 normal heart sound present GI Inspection: Yes normal to inspection Palpation (GI): No hepatosplenomegaly present Skin General skin exam: no rashes or lesions noted Extrem General: Yes no clubbing, cyanosis or edema Assessment and Plan Assessment & Plan (1) Otitis media: Code(s): H66.90 - Otitis media, unspecified, unspecified ear Plan: rx sent Medications: New azithromycin take 500 mg today (day 1), then 250 mg for 4 days (days 2-5) orally; 6 tabs 0RF Coding Level of Care Code Est Pt Level 3 (69592) Diagnoses Otitis media H66.90
== END 2024-01-23 14:20 | disposition home or self-care (01) ==
PROVIDERS: PCP Internal Medicine; Visit Provider Internal Medicine
DX: H66.90 Otitis media, unspecified, unspecified ear (principal)
CPT/HCPCS: 99213

== ENCOUNTER 2024-02-16 09:31 | Outpatient (AMB) | payer BC, MEDICAID, SELFPAY ==
--- NOTE | 2024-02-16 09:33 | AM.OFFWIN_ITS ---
Intake Vital Signs 02/16/24 09:34 Height 5 ft 1 in Weight 155 lb BMI 29.3 BP 120/68 Blood Pressure Location Lt brachial Position Sitting Pulse 61 Pulse Source Pulse Oximeter Temp 97.6 F Temp Source Temporal Artery Scan Pulse Oximetry (%) 98 Oxygen Delivery Method Room Air Intake Visit Reasons: EP Head/ RT ear pain/Cough (masked) Intake Note: pt is here today for head rt ear pain cough started 1 week ago Patient Tobacco Use Status: Former Tobacco user Allergies cephalexin [Keflex] Allergy (Unknown, Verified 02/16/24 09:36) Unknown codeine Allergy (Unknown, Verified 02/16/24 09:36) Unknown Sulfa (Sulfonamide Antibiotics) Allergy (Unknown, Verified 02/16/24 09:36) Vertigo, rash Do you need a note to return to daycare/school/sports/work: Yes HPI HPI Comments History of Present Illness Details This is a 53-year-old female who presented to the walk-in clinic today complaining of viral URI symptoms including nasal congestion/rhinorrhea, dry cough, myalgias, sore throat, and right-sided otalgia. She states she had RSV in 11/2023 and her symptoms feel similar. She denies any chest pain or shortness a breath. She denies any significant sputum production with her cough. She reports occasional chills but denies any measured fevers. 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 Current occupational exposures/hazards: No Cognitive needs: No Hearing needs: No Vision needs: No Review of Systems Const All systems reviewed & are unremarkable except as noted in HPI and below Reports no additional complaints Eyes Reports no additional complaints ENT Reports no additional complaints Card Reports no additional complaints Resp Reports no additional complaints GI Reports no additional complaints Reports no additional complaints Musc Reports no additional complaints Skin/Breast Reports system reviewed and no additional complaints, except as documented Neuro Reports no additional complaints Psych Reports no additional complaints Endo Reports no additional complaints Georges/Lymph Reports no additional complaints Aller/Immun Reports no additional complaints Physical Exam Vital Signs: Last Vital Signs Temp 97.6 F 02/16/24 09:34 Pulse 61 02/16/24 09:34 BP 120/68 02/16/24 09:34 Pulse Ox 98 02/16/24 09:34 Oxygen Delivery Method Room Air 02/16/24 09:34 BMI result Body Mass Index 29.3 Const Other: Vital signs reviewed. Constitutional: Non-toxic appearing. No acute distress. Well-developed and well-nourished. HEENT: Normocephalic and atraumatic. She has mild effusion behind her right tympanic membrane without erythema, edema, or bulging. Her left tympanic membrane is without erythema, edema, or bulging. She has no posterior pharyngeal exudates. Skin: Warm and dry. No rashes or lesions noted. Neck: Full and painless range of motion. No cervical lymphadenopathy. Cardio: Regular rate and rhythm. No murmurs, gallops, or rubs. No lower extremity edema. No JVD. Pulmonary: No respiratory distress. No accessory muscle usage. Clear to au scultation bilaterally without wheezing, crackles, or rhonchi. Gastrointestinal: Soft, nontender, and nondistended in all 4 quadrants. Musculoskeletal: Normal range of motion in joints throughout the body. No deformity or other signs of injury. Neuro: Alert and oriented x4. Cranial nerves 2-12 grossly intact. No focal de ficits appreciated. Psych: Normal mood and affect. Assessment & Plan Assessment & Plan (1) URI (upper respiratory infection): Code(s): J06.9 - Acute upper respiratory infection, unspecified Qualifiers: URI type: unspecified viral URI Qualified Code(s): J06.9 - Acute upper respiratory infection, unspecified Plan: This is a 53-year-old female who presents to the office complaining of viral URI symptoms times 5 days. She states her symptoms have improved since onset but they are persistent. History and physical most consistent with an acute viral upper respiratory tract infection, no evidence for acute bronchitis or pneumonia or bacterial rhinosinusitis. Recommended symptomatic management including rest, increased fluids, advil/tylenol for pain/fever, and over the counter throat lozenges/decongestants. COVID/RSV/FLU sent. She was reassured that this is likely a self-limiting illness. Patient advised to follow up here or go to the emergency room for worsening/persistent symptoms. Patient verbalized understanding and is agreeable with the plan. Orders: Orders SARS-CoV2/FLU/RSV Today R09.89 - Other specified symptoms and signs involving the circulatory and respiratory systems Coding Level of Care Code Est Pt Level 3 (48926) Diagnoses Viral upper respiratory tract infection J06.9 URI type: unspecified viral URI
[2024-02-16 09:34] VITALS: BP 120/68; PULSE 61; TEMP 36.4; O2SAT 98; BMI 29.3
== END 2024-02-16 10:12 | disposition home or self-care (01) ==
PROVIDERS: PCP Internal Medicine; Visit Provider Physician Assistant Medical
DX: J06.9 Acute upper respiratory infection, unspecified (principal)
CPT/HCPCS: 99213

== ENCOUNTER 2024-02-16 13:47 | Outpatient (REF) | payer BC, MEDICAID, SELFPAY ==
[2024-02-16 15:00] LABS: Influenza A PCR NEGATIVE (Negative); Influenza B PCR NEGATIVE (Negative); Resp Syncy Virus RNA Qual PCR NEGATIVE (Negative); SARS COV2 PCR INHOUSE NEGATIVE (Negative)
== END 2024-02-16 13:48 | disposition home or self-care (01) ==
LOC: HO.LNP 13:47
PROVIDERS: Visit Provider Physician Assistant Medical
DX: R09.89 Other specified symptoms and signs involving the circulatory and respiratory systems (principal)
CPT/HCPCS: 0241U

== ENCOUNTER 2024-02-20 14:41 | Outpatient (REF) | payer BC, MEDICAID, SELFPAY ==
[2024-02-21 11:50] LABS: Influenza A PCR NEGATIVE (Negative); Influenza B PCR NEGATIVE (Negative); Resp Syncy Virus RNA Qual PCR NEGATIVE (Negative); SARS COV2 PCR INHOUSE NEGATIVE (Negative)
== END 2024-02-20 14:42 | disposition home or self-care (01) ==
LOC: HO.LNP 14:41
PROVIDERS: Visit Provider Nurse Practitioner Primary Care
DX: J06.9 Acute upper respiratory infection, unspecified (principal)
CPT/HCPCS: 0241U

== ENCOUNTER 2024-02-20 14:41 | Outpatient (AMB) | payer BC, MEDICAID, SELFPAY ==
[2024-02-20 15:18] VITALS: BP 110/62; PULSE 60; TEMP 36.5; O2SAT 98; BMI 29.3
--- NOTE | 2024-02-20 15:18 | MHC.OFFWIV ---
Intake Vital Signs 02/20/24 15:18 Height 5 ft 1 in Weight 155 lb BMI 29.3 BP 110/62 Blood Pressure Location Lt brachial Position Sitting Pulse 60 Pulse Source Pulse Oximeter Temp 97.7 F Temp Source Temporal Artery Scan Pulse Oximetry (%) 98 Oxygen Delivery Method Room Air Intake Visit Reasons: EP Congestion/RT ear pain Intake Note: pt is here for Rt ear pain, was here this past monday and would like to be checked out again due to no relief Patient Tobacco Use Status: Former Tobacco user Allergies cephalexin [Keflex] Allergy (Unknown, Verified 02/20/24 15:55) Unknown codeine Allergy (Unknown, Verified 02/20/24 15:55) Unknown Sulfa (Sulfonamide Antibiotics) Allergy (Unknown, Verified 02/20/24 15:55) Vertigo, rash Medication List - Last Reconciled 02/20/24 by YADIRA Cheng acyclovir 5% 1 appl topical 6XD albuterol sulfate 90 mcg/actuation (ProAir HFA) 2 puffs inhalation Q4-6H PRN 30 days apremilast (Otezla) 30 mg PO BID epinephrine (EpiPen 2-Gabino) 0.3 mg (0.3 mL) IM ONCE PRN fenofibrate nanocrystallized 145 mg PO DAILY ibuprofen 800 mg PO TID lorazepam 0.5 mg (1/2 x 1 mg) PO BID PRN Do you need a note to return to daycare/school/sports/work: Yes HPI HPI Comments History of Present Illness Details Patient is a 53-year-old female in today for sick visit. Patient states that she was in the walk-in clinic 4 days prior for symptoms of cough, sore throat, nasal discharge, ear fullness. Patient's is here today with similar symptom, complaining of right ear pain, sinus pain, cough, sore throat. Patient denies chest pain, shortness a breath, dizziness, nausea, vomiting, diarrhea. 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 Const Other: Appearance: Alert.? Oriented X3.? No acute distress.? Head: Normocephalic, atraumatic. Eyes: Pupils equal, round and reactive to light.? ENT: Pharynx erythema. Bialteral TM pearly santos and intact. + sinus pain. Neck: Normal inspection.? Neck supple.? CVS: Normal heart rate and rhythm.? Pulses normal.? Respiratory: No respiratory distress.? Slight wheeze bilateral upper lobes. Neuro: Oriented X 3.? No motor deficit.? No sensory deficit. CN 2-12 intact Assessment & Plan Assessment & Plan (1) Sinusitis: Comment: Will prescribe prednisone azithromycin Code(s): J32.9 - Chronic sinusitis, unspecified Qualifiers: Sinusitis location: other Chronicity: acute Recurrence: non-recurrent Qualified Code(s): J01.80 - Other acute sinusitis Plan: Take your medications as prescribed. If you were prescribed antibiotics today, it is important that you take your medication to their entirety, do not skip any doses, do not finish them early. Follow-up with your primary care provider this week. Return to the emergency department with new or worsening symptoms. Such as fevers, chills, chest pain, shortness of breath, nausea, vomiting, dizziness, headache, vision changes, lethargy In case of emergency call 911 Plan Follow-up with PCP Orders: Orders SARS-CoV2/FLU/RSV Today J06.9 - Acute upper respiratory infection, unspecified Coding Level of Care Code Est Pt Level 3 (66793) Diagnoses Acute non-recurrent sinusitis of other sinus J01.80 Sinusitis location: other Chronicity: acute Recurrence: non-recurrent Time Spent (min) 22
== END 2024-02-20 16:05 | disposition home or self-care (01) ==
PROVIDERS: PCP Internal Medicine; Visit Provider Nurse Practitioner Primary Care
DX: J01.80 Other acute sinusitis (principal)
CPT/HCPCS: 99213

== ENCOUNTER 2024-03-05 13:55 | Outpatient (AMB) | payer BC, MEDICAID, SELFPAY ==
[2024-03-05 13:58] VITALS: BP 120/70; PULSE 68; TEMP 36.4; O2SAT 97
--- NOTE | 2024-03-05 13:58 | AM.OFFWIN_ITS ---
Intake Vital Signs 03/05/24 13:58 Height 5 ft 1 in BMI Reason not done Patient refused/unable BP 120/70 Blood Pressure Location Lt brachial Position Sitting Pulse 68 Pulse Source Pulse Oximeter Temp 97.6 F Temp Source Temporal Artery Scan Pulse Oximetry (%) 97 Oxygen Delivery Method Room Air Intake Visit Reasons: EP lft index finger swollen Intake Note: pt is here today for lft finger swollen started 3 days ago Patient Tobacco Use Status: Former Tobacco user Allergies cephalexin [Keflex] Allergy (Unknown, Verified 03/05/24 14:03) Unknown codeine Allergy (Unknown, Verified 03/05/24 14:03) Unknown Sulfa (Sulfonamide Antibiotics) Allergy (Unknown, Verified 03/05/24 14:03) Vertigo, rash Do you need a note to return to daycare/school/sports/work: Yes HPI HPI Comments History of Present Illness Details 53-year-old female presents to today com plaining of paronychia of her right index. It is erythematous with an area of pustule the nail border. She is also complaining of right ear pain for the last 2 weeks. Denies any fever chills shortness of breath or cough PFSH Medical History Strain of right triceps muscle Anxiety Anxiety Surgical History History of ectopic History of elbow surgery H/O left knee surgery History of umbilical hernia repair Family History Father Medical history unknown Mother Medical history unknown Family/Other Hyperlipidemia Diabetes Social History Housing: House Alcohol intake: current Alcohol intake frequency: a few times a month Patient Tobacco Use Status: Former Tobacco user e-Cigarette/Vaping Use: Never Used Second Hand Smoke Exposure: No service: No Current occupational status: employed 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 [employer] Current occupational exposures/hazards: No Cognitive needs: No Hearing needs: No Vision needs: No Review of Systems Const All systems reviewed & are unremarkable except as noted in HPI and below Physical Exam Vital Signs: Last Vital Signs Temp 97.6 F 03/05/24 13:58 Pulse 68 03/05/24 13:58 BP 120/70 03/05/24 13:58 Pulse Ox 97 03/05/24 13:58 Oxygen Delivery Method Room Air 03/05/24 13:58 HEENT Head: Yes normal to inspection, Yes normocephalic and Yes atraumatic Ears: hearing grossly normal bilaterally and TM abnormal (Right) bulging and erythematous General nose exam: Normal external nose present Face and sinus: Yes normal facial exam Mouth: Normal oral and palatal mucosa present Throat: Yes posterior oropharynx normal Extrem Right upper extremity: Extremity exam: right hand Details: tenderness, warmth, swelling and other (Erythema of the distal phalanx of the right index) Assessment & Plan Assessment & Plan (1) Paronychia of finger of right hand: Code(s): L03.011 - Cellulitis of right finger Plan: Patient was put on antibiotics for the cellulitis of the right finger. This will also cover the otitis media she has in her right ear this was explained to the patient (2) Otitis media of right ear: Code(s): H66.91 - Otitis media, unspecified, right ear Plan: See plan Plan See plan Medications: New doxycycline hyclate 100 mg PO BID 14 caps 0RF 7 days Coding Level of Care Code Est Pt Level 3 (97457) Diagnoses Paronychia of finger of right hand L03.011 Otitis media of right ear H66.91
== END 2024-03-05 14:35 | disposition home or self-care (01) ==
PROVIDERS: PCP Internal Medicine; Visit Provider Physician Assistant Medical
DX: L03.011 Cellulitis of right finger (principal); H66.91 Otitis media, unspecified, right ear
CPT/HCPCS: 99213

== ENCOUNTER 2024-04-26 11:00 | Outpatient (AMB) | payer BC, MEDICAID, SELFPAY ==
--- NOTE | 2024-04-26 11:01 | MHC.PC.OV ---
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 Accompanied by: Self / Same As Patient Allergies cephalexin [Keflex] Allergy (Unknown, Verified 04/26/24 11:02) Unknown codeine Allergy (Unknown, Verified 04/26/24 11:02) Unknown Sulfa (Sulfonamide Antibiotics) Allergy (Unknown, Verified 04/26/24 11:02) Vertigo, rash Medication List - Last Reconciled 04/26/24 by Sanyt Flores MD acyclovir 5% 1 appl topical 6XD albuterol sulfate 90 mcg/actuation (ProAir HFA) 2 puffs inhalation Q4-6H PRN 30 days apremilast (Otezla) 30 mg PO BID azithromycin For 250 mg dose pack: take 500 mg today (day 1), then 250 mg for 4 days (days 2-5) PO doxycycline hyclate 100 mg PO BID 7 days epinephrine (EpiPen 2-Gabino) 0.3 mg (0.3 mL) IM ONCE PRN fenofibrate nanocrystallized 145 mg PO DAILY ibuprofen 800 mg PO TID lorazepam 0.5 mg (1/2 x 1 mg) PO BID PRN Tobacco use date assessed: 01/23/24 Dental Screening Dental Screen Date: 01/23/24 HPI need family leave HPI Details chronic anxiety and stress; needs fmla from work [facility] Medical History Strain of right triceps muscle Anxiety Anxiety Surgical History History of ectopic History of elbow surgery H/O left knee surgery History of umbilical hernia repair Family History Father Medical history unknown Mother Medical history unknown Family/Other Hyperlipidemia Diabetes Social History Housing: House Alcohol intake: current Alcohol intake frequency: a few times a month Patient Tobacco Use Status: Former Tobacco user e-Cigarette/Vaping Use: Never Used Second Hand Smoke Exposure: No service: No Current occupational status: employed 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 Sundar Abbasi, Latia Kwon, Bran Manzanares and colleagues, with an educational madison from [employer]. Review of Systems Const Denies chills, Denies headache(s) and Denies weight loss ENT Denies headache(s) Card Denies chest pain, Denies syncope, Denies irregular heart rhythm and Denies dyspnea Resp Denies chest congestion, Denies cough and Denies dyspnea GI Denies abdominal pain, Denies change in stool character, Denies nausea and Denies vomiting Musc Denies deformity and Denies joint swelling Neuro Denies syncope and Denies headache(s) Physical exam (Primary Care) Vital Signs: Last Vital Signs Pulse 55 04/26/24 11:02 BP 114/70 04/26/24 11:02 Pulse Ox 98 04/26/24 11:02 Oxygen Delivery Method Room Air 04/26/24 11:02 BMI result Body Mass Index 29.9 Tobacco/Smoking Status: Tobacco use Status Tobacco use date assessed 01/23/24 04/26/24 11:02 Patient Tobacco Use Status Former Tobacco user 04/26/24 11:02 e-Cigarette/Vaping Use Never Used 04/26/24 11:02 Thrive Assessment: Date of Thrive Assessment Date Thrive assessed 01/23/24 04/26/24 11:02 Const General: cooperative, comfortable, no acute distress and alert Neck Neck: Yes no lymphadenopathy Thyroid: Thyroid normal Resp Effort & Inspection: normal respiratory effort Auscultation: clear to auscultation bilaterally Percussion: percussion normal Cardio Jugular venous distension: no JVD Palpation: normal PMI Rate: regular rate Rhythm: regular rhythm Heart sounds: S1 normal heart sound present and S2 normal heart sound present GI Inspection: Yes normal to inspection Palpation (GI): No hepatosplenomegaly present Skin General skin exam: no rashes or lesions noted Extrem General: Yes no clubbing, cyanosis or edema Assessment and Plan Assessment & Plan (1) Anxiety: Comment: cont same rx Code(s): F41.9 - Anxiety disorder, unspecified Plan: will fill out fmla paperwork Coding Level of Care Code Est Pt Level 3 (12469) Diagnoses Anxiety F41.9
[2024-04-26 11:02] VITALS: BP 114/70; PULSE 55; O2SAT 98; BMI 29.9
== END 2024-04-26 11:15 | disposition home or self-care (01) ==
PROVIDERS: PCP Internal Medicine; Visit Provider Internal Medicine
DX: F41.9 Anxiety disorder, unspecified (principal)
CPT/HCPCS: 99213

== ENCOUNTER 2024-06-07 08:54 | Outpatient (AMB) | payer BC, MEDICAID, SELFPAY ==
[2024-06-07 08:56] VITALS: BP 110/62; PULSE 76; O2SAT 98; BMI 29.5
--- NOTE | 2024-06-07 08:56 | MHC.PC.OV ---
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 Accompanied by: Self / Same As Patient Allergies cephalexin [Keflex] Allergy (Unknown, Verified 06/07/24 08:57) Unknown codeine Allergy (Unknown, Verified 06/07/24 08:57) Unknown Sulfa (Sulfonamide Antibiotics) Allergy (Unknown, Verified 06/07/24 08:57) Vertigo, rash Medication List - Last Reconciled 06/07/24 by Santy Flores MD acyclovir 5% 1 appl topical 6XD albuterol sulfate 90 mcg/actuation (ProAir HFA) 2 puffs inhalation Q4-6H PRN 30 days apremilast (Otezla) 30 mg PO BID doxycycline hyclate 100 mg PO BID 7 days epinephrine (EpiPen 2-Gabino) 0.3 mg (0.3 mL) IM ONCE PRN fenofibrate nanocrystallized 145 mg PO DAILY ibuprofen 800 mg PO TID lorazepam 0.5 mg (1/2 x 1 mg) PO BID PRN sertraline 50 mg PO DAILY Tobacco use date assessed: 01/23/24 Dental Screening Dental Screen Date: 01/23/24 HPI pe HPI Details asthma hyperlipidemia and depression on rx; currently doing well [facility] Medical History (Updated 06/07/24 @ 09:25 by Santy Flores MD) Physical exam Strain of right triceps muscle Anxiety Anxiety Surgical History History of ectopic History of elbow surgery H/O left knee surgery History of umbilical hernia repair Family History Father Medical history unknown Mother Medical history unknown Family/Other Hyperlipidemia Diabetes Social History Housing: House Alcohol intake: current Alcohol intake frequency: a few times a month Patient Tobacco Use Status: Former Tobacco user e-Cigarette/Vaping Use: Never Used Second Hand Smoke Exposure: No service: No Current occupational status: employed 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 Sundar Abbasi, Latia Kwon, Bran Manzanares and colleagues, with an educational madison from [employer]. Review of Systems Const Denies chills, Denies fatigue, Denies headache(s) and Denies weight loss Eyes Denies change in vision, Denies diplopia and Denies eye pain ENT Denies vertigo, Denies dizziness, Denies headache(s) and Denies nasal discharge Card Denies chest pain, Denies rapid heart rate and Denies dyspnea on exertion Resp Denies chest congestion, Denies cough, Denies pain with cough and Denies dyspnea on exertion GI Denies abdominal pain, Denies hematochezia and Denies change in bowel habits Musc Denies myalgias, Denies arthralgias and Denies joint swelling Skin/Breast Denies lesions and Denies unusual bruising Neuro Denies vertigo, Denies dizziness, Denies headache(s) and Denies focal weakness Endo Denies fatigue Physical exam (Primary Care) Vital Signs: Last Vital Signs Pulse 76 06/07/24 08:56 BP 110/62 06/07/24 08:56 Pulse Ox 98 06/07/24 08:56 Oxygen Delivery Method Room Air 06/07/24 08:56 BMI result Body Mass Index 29.5 Tobacco/Smoking Status: Tobacco use Status Tobacco use date assessed 01/23/24 06/07/24 09:02 Patient Tobacco Use Status Former Tobacco user 06/07/24 09:02 e-Cigarette/Vaping Use Never Used 06/07/24 09:02 Thrive Assessment: Date of Thrive Assessment Date Thrive assessed 01/23/24 06/07/24 09:02 Const General: cooperative, healthy appearing and no acute distress Orientation/consciousness: oriented to person, oriented to place and oriented to time [facility] Head: Yes normal to inspection, Yes normocephalic and Yes atraumatic Mouth: Normal oral and palatal mucosa present and tongue normal Throat: Yes posterior oropharynx normal and Yes uvula midline Eyes General: appearance normal, both eyes and all related structures Neck Neck: Yes normal visual inspection, Yes full ROM and Yes no lymphadenopathy Thyroid: Thyroid normal Carotids: normal carotid upstroke Chest Chest palpation & inspection: normal inspection of the chest Resp Effort & Inspection: normal respiratory effort and able to speak in complete sentences Auscultation: clear to auscultation bilaterally Cardio Jugular venous distension: no JVD Palpation: normal PMI Rate: regular rate Rhythm: regular rhythm Heart sounds: S1 normal heart sound present and S2 normal heart sound present GI Inspection: Yes normal to inspection Palpation (GI): Soft to palpation and No hepatosplenomegaly present Auscultation: normal bowel sounds General: Yes no CVA tenderness Back/Spine/Pelvis Back: no CVA tenderness Skin General skin exam: no rashes or lesions noted Neuro General: oriented to person, oriented to place and oriented to time Extrem General: Yes normal to inspection and Yes full ROM Assessment and Plan Assessment & Plan (1) Physical exam: Code(s): Z00.00 - Encounter for general adult medical examination without abnormal findings Plan: stable; do labs (2) Hyperlipidemia: Code(s): E78.5 - Hyperlipidemia, unspecified Plan: stable; same rx (3) Anxiety: Code(s): F41.9 - Anxiety disorder, unspecified Plan: stable ;same rx (4) Asthma: Code(s): J45.909 - Unspecified asthma, uncomplicated Plan: stable; same rx Orders: Orders Thyroid Stimulating Hormone Today Z13.29 - Encounter for screening for other suspected endocrine disorder Complete Blood Count Auto Diff Today Z13.0 - Encounter for screening for diseases of the blood and blood-forming organs and certain disorders involving the immune mechanism Lipid Panel Today Z13.220 - Encounter for screening for lipoid disorders Comprehensive [place]. Panel Fast Today Z13.9 - Encounter for screening, unspecified Coding Level of Care Code Est Pt Prev Care 40-64y(01272) Diagnoses Physical exam Z00.00 Hyperlipidemia E78.5 Anxiety F41.9 Asthma J45.909
== END 2024-06-07 09:18 | disposition home or self-care (01) ==
PROVIDERS: PCP Internal Medicine; Visit Provider Internal Medicine
DX: Z00.00 Encounter for general adult medical examination without abnormal findings (principal); E78.5 Hyperlipidemia, unspecified; F41.9 Anxiety disorder, unspecified; J45.909 Unspecified asthma, uncomplicated
CPT/HCPCS: 99396

== ENCOUNTER 2024-06-07 09:22 | Outpatient (REF) | payer BC, MEDICAID, SELFPAY ==
[2024-06-07 09:31] LABS: MANUAL DIFF FLAG NO
[2024-06-07 10:08] LABS: Basophils Percent Auto 0.8 % (0-2); Eosinophils Absolute Auto 0.1 X10*3/uL (0.0-0.4); Eosinophils Percent Auto 3.4 % (0-4); Hematocrit 39.2 % (37.0-47.0); Hemoglobin 13.2 g/dl (12.0-16.0); Imm Gran Abs Auto 0.01 X10*3/uL (0.00-0.03); Imm Gran Pct Auto 0.3 % (0.0-0.4); Lymphocytes Absolute Auto 0.9 X10*3/uL (1.2-4.9); Lymphocytes Percent Auto 26.3 % (20-40); Mean Corpuscular HGB Conc 33.7 g/dl (31.0-35.0); Mean Corpuscular Hemoglobin 31.4 pg (27.0-33.0); Mean Corpuscular Volume 93.1 fL (80.0-98.0); Mean Platelet Volume 10.9 fL (9.4-12.3); Monocytes Absolute Auto 0.5 X10*3/uL (0.1-1.2); Monocytes Percent Auto 13.9 % (2-11); Neutrophils Percent Auto 55.3 % (45-73); Platelet Count 235 X10*3/uL (160-400); Red Blood Count 4.21 X10*6/uL (4.20-5.50); Red Cell Distribution Width 13.3 % (11.0-16.0); White Blood Count 3.5 X10*3/uL (4.8-10.8)
[2024-06-07 11:03] LABS: Alanine Aminotransferase 42 U/L (0-31); Albumin Level 4.3 g/dL (3.5-5.0); Alkaline Phosphatase 51 U/L (39-117); Anion Gap 12 (12-20); Aspartate Amino Transferase 48 U/L (5-31); Bilirubin Total 0.6 mg/dL (0.0-1.0); Blood Urea Nitrogen 14 mg/dL (9-16); Carbon Dioxide 24 mmol/L (22-29); Chloride 109 mmol/L (96-108); Cholesterol 160 mg/dL (<200); Estimated Glomerular Filt Rate > 60; Glucose Fasting 89 mg/dL (60-99); HDL Cholesterol 61 mg/dL (>40); LDL Cholesterol Calculated 89 mg/dL (<100); Potassium 3.9 mmol/L (3.3-5.1); Sodium 141 mmol/L (135-145); Total Protein 7.3 g/dL (6.5-8.0); Triglycerides 53 mg/dL (<150)
[2024-06-07 11:23] LABS: Thyroid Stimulating Hormone 0.64 uIU/mL (0.32-4.0)
== END 2024-06-07 09:23 | disposition home or self-care (01) ==
LOC: HO.LAB 09:22
PROVIDERS: PCP Internal Medicine; Visit Provider Internal Medicine
DX: Z13.29 Encounter for screening for other suspected endocrine disorder (principal); Z13.220 Encounter for screening for lipoid disorders; Z13.0 Encounter for screening for diseases of the blood and blood-forming organs and certain disorders involving the immune mechanism; Z13.9 Encounter for screening, unspecified
CPT/HCPCS: 36415; 80053; 80061; 84443; 85025

== ENCOUNTER 2024-12-18 10:33 | Outpatient (REF) | payer BC, MEDICAID, SELFPAY ==
--- NOTE | ~2024-12-18 | XR_ITS ---
EXAMINATION: XR LUMBOSACRAL SPINE CLINICAL INFORMATION: M54.9 - Dorsalgia, unspecified COMPARISON: None available. TECHNIQUE: Three views of the lumbosacral spine. FINDINGS: Facet joint hypertrophy at L5-S1. Grade 1 anterolisthesis L4-5. No acute cortical disruption. Vascular clips in the right upper quadrant abdomen. No lytic or blastic lesions. XR/XR lumbar spine 2-3V IMPRESSION: Lower lumbar spondylosis. Grade 1 anterolisthesis L4-5. Electronically signed by: Andrew Rodriguez MD 12/18/2024 02:58 PM EST
--- OUTSIDE RECORDS SUMMARY | 2024-12-18 12:25 | XMS_ITS | Clinical Summary ---
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 Name Role Phone Unavailable Primary Care Provider Unavailabl e Social History Tobacco Use Types Packs/Day Years Used Date Smoking Tobacco: Never Assessed Sex and Gender Information Value Date Recorded Sex Assigned at Not on file Gender Identity Not on file Sexual Orientation Not on file Plan of Treatment Health Maintenance Due Date Last Done Comments Breast Cancer Screening 1968 Hepatitis B Vaccines (1 of 3 - 19+ 3-dose series) 1987 Cervical Cancer Screening: P ap Smear 1989 Zoster Vaccines (1 of 2) 2018 Colorectal Cancer Screening: Colonoscopy 10/16/2022 Depression Screening 10/16/2022 HIV Screening 10/16/2022 Hepatitis C Screening 10/16/2022 Social Influencers of Health Screening 10/16/2022 COVID-19 Vaccine ( - 2023-2 5 season) 2024 Influenza Vaccine (#1) 2024 DTaP,Tdap,and Td Vaccines (2 - Td or Tdap) 06/26/2025 06/26/2015 HIB Vaccines Aged Out No longer eligi ble based on patient's age to complete this topic HPV Vaccines Aged Out No longer eligi ble based on patient's age to complete this topic Hepatitis A Vaccines Aged Out No long er eligible based on patient's age to complete this topic IPV Vaccines Aged Out No longer eligi ble based on patient's age to complete this topic MMR Vaccines Aged Out No longer eligi ble based on patient's age to complete this topic Meningococcal ACWY Vaccine Aged Out N o longer eligible based on patient's age to complete this topic Pneumococcal Vaccine: Pediat rics (0 to 5 Years) and At-Risk Patients (6 to 64 Years) Aged Out No longer eligi ble based on patient's age to complete this topic RSV Immunization Patients Un sulma 20 months Aged Out No longer eligible b ased on patient's age to complete this topic Varicella Vaccines Aged Out No longer eligible based on patient's age to complete this topic
== END 2024-12-18 10:34 | disposition home or self-care (01) ==
LOC: HO.XRAY 10:33
PROVIDERS: PCP Internal Medicine; Visit Provider Internal Medicine
DX: F41.9 Anxiety disorder, unspecified (principal); M54.9 Dorsalgia, unspecified
CPT/HCPCS: 72100; 96127

== ENCOUNTER → 2024-12-18 11:07 | Outpatient (BNV) | payer BC, MEDICAID, SELFPAY | PROVIDERS: PCP Internal Medicine; Visit Provider Radiology Diagnostic Radiology | DX: M47.896 Other spondylosis, lumbar region (principal); M43.16 Spondylolisthesis, lumbar region | CPT/HCPCS: 72100 ==

== ENCOUNTER 2024-12-25 14:03 | Outpatient (AMB) | payer BC, MEDICAID, SELFPAY ==
--- NOTE | 2024-12-25 14:07 | A.OFFPC_ITS ---
Vital Signs 12/25/24 14:08 Height 5 ft 1 in Weight 168 lb 4 oz BMI 31.8 BP 120/68 Blood Pressure Location Lt brachial Position Sitting Pulse 55 Pulse Source Pulse Oximeter Temp 97.3 F Temp Source Skin Pulse Oximetry (%) 83 L Oxygen Delivery Method Room Air Intake Visit Reasons: weezing Intake Note: Patient is here to follow up on Wheezing, coughing. 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 Accompanied by: Self / Same As Patient Allergies cephalexin [Keflex] Allergy (Unknown, Verified 12/25/24 14:08) Unknown codeine Allergy (Unknown, Verified 12/25/24 14:08) Unknown Sulfa (Sulfonamide Antibiotics) Allergy (Unknown, Verified 12/25/24 14:08) Vertigo, rash Medication List - Last Reconciled 12/26/24 by Santy Flores MD acyclovir 5% 1 appl topical 6XD albuterol sulfate 90 mcg/actuation 2 puffs inhalation Q4-6H PRN 30 days apremilast (Otezla) 30 mg PO BID azithromycin take 500 mg today (day 1), then 250 mg for 4 days (days 2-5) PO doxycycline hyclate 100 mg PO BID 7 days epinephrine (EpiPen 2-Gabino) 0.3 mg (0.3 mL) IM ONCE PRN fenofibrate nanocrystallized 145 mg PO DAILY ibuprofen 800 mg PO TID lorazepam 0.5 mg (1/2 x 1 mg) PO BID PRN prednisone 40 mg PO DAILY sertraline 50 mg PO DAILY Tobacco use date assessed: 12/25/24 Dental Screening Dental Screen Date: 12/18/24 HPI weezing HPI Details productive cough for a week PFSH Medical History (Updated 12/26/24 @ 12:44 by Santy Flores MD) Physical exam Strain of right triceps muscle Anxiety Anxiety Surgical History History of ectopic History of elbow surgery H/O left knee surgery History of umbilical hernia repair Family History Father Medical history unknown Mother Medical history unknown Family/Other Hyperlipidemia Diabetes Social History Housing: House Alcohol intake: current Alcohol intake frequency: a few times a month Patient Tobacco Use Status: Former Tobacco user Tobacco use type: Cigarette e-Cigarette/Vaping Use: Never Used Second Hand Smoke Exposure: No service: No Current occupational status: employed 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 Sundar Abbasi, Latia Kwon, Bran Manzanares and colleagues, with an educational madison from [employer] Review of Systems Const Denies chills, Denies headache(s) and Denies weight loss ENT Denies headache(s) Card Denies chest pain, Denies syncope, Denies irregular heart rhythm and Denies dyspnea Resp Denies dyspnea GI Denies abdominal pain, Denies change in stool character, Denies nausea and Denies vomiting Musc Denies deformity and Denies joint swelling Neuro Denies syncope and Denies headache(s) Physical exam (Primary Care) Vital Signs: Last Vital Signs Temp 97.3 F 12/25/24 14:08 Pulse 55 12/25/24 14:08 BP 120/68 12/25/24 14:08 Pulse Ox 83 L 12/25/24 14:08 Oxygen Delivery Method Room Air 12/25/24 14:08 BMI result Body Mass Index 31.8 Tobacco/Smoking Status: Tobacco use Status Tobacco use date assessed 12/25/24 12/25/24 14:12 Patient Tobacco Use Status Former Tobacco user 12/25/24 14:12 Tobacco use type Cigarette 12/25/24 14:12 e-Cigarette/Vaping Use Never Used 12/25/24 14:12 Thrive Assessment: Date of Thrive Assessment Date Thrive assessed 12/18/24 12/25/24 14:12 Const General: cooperative, comfortable, no acute distress and alert Neck Neck: Yes no lymphadenopathy Thyroid: Thyroid normal Resp Effort & Inspection: normal respiratory effort Auscultation: clear to auscultation bilaterally Percussion: percussion normal Cardio Jugular venous distension: no JVD Palpation: normal PMI Rate: regular rate Rhythm: regular rhythm Heart sounds: S1 normal heart sound present and S2 normal heart sound present GI Inspection: Yes normal to inspection Palpation (GI): No hepatosplenomegaly present Skin General skin exam: no rashes or lesions noted Extrem General: Yes no clubbing, cyanosis or edema Coding Level of Care Code Est Pt Level 3 (77005) Diagnoses Cough R05 Assessment & Plan Assessment & Plan (1) Cough: Code(s): R05 - Cough Category: Medical Plan: rx sent Medications: New azithromycin take 500 mg today (day 1), then 250 mg for 4 days (days 2-5) PO 6 tabs 0RF
[2024-12-25 14:08] VITALS: BP 120/68; PULSE 55; TEMP 36.3; O2SAT 83; BMI 31.8
--- OUTSIDE RECORDS SUMMARY | 2024-12-25 15:27 | XMS_ITS | Data Portability ---
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 Plan of Treatment Reminders Order Date Submit Date Provider Last Modified By Organization Details Last Modified Time Details Appointments None recorded. Lab urinalysis, dipstick 2022 023 [email or web address] [address], [address] [place], [address], 3 16:21:03 Referral None recorded. Procedures None recorded. Surgeries None recorded. Imaging None recorded. Medication Orders Medrol (Gabino) 4 mg tablets in a dose pack 2022 024 [facility][id number], [address] [place], [address], 4 10:24:26 amoxicillin 875 mg-brenda preston clavulanate 125 mg tablet 2023 024 [facility] #[id number], [address] [place], [address], 4 11:04:48 Patient TargetsNo targets recorded. Patient Instructions Encounter Date Encounter Id Patient Instructions Last Modified By Organization Details Last Modified Time 06/22/2023 [id number] getting back to normal after low back pain: care instructions Not available 06/22/2023 16:21:00 sciatica: exercises [email or web address] Not available 06/22/2023 16:21:00 sciatica education [email or web address] Not available 06/22/2023 16:21:01 sciatica: care instructions [email or web address] Not available 06/22/2023 16:21:00 Take the medrol as prescribed. Do not take ibuprofen or related medication while taking the medrol. Tylenol may be taken with the medrol if needed. See printed instructions and work note. Keep your appointment as scheduled with [facility]. Seek Emergency Medical evaluation for any worsening symptoms, particularly for worsening pain, bowel or bladder dysfunction, numbness in genital area or weakness of the lower extremities. [email or web address] Not available 06/22/2023 16:22:49 01/07/2024 [id number] You have a middl e ear infection and we are going to treat with antibiotics. Control pain and fever with tylenol and / or ibuprofen. Take the antibiotics as directed and finish the entire course. Follow up with your primary care provider. [email or web address] Not available 01/07/2024 11:03:17 Reason for Referral None Reported. Results Created Date Observation Date Name Description Value Unit Range Abnormal Flag Note LastModifiedBy Organization Detail LastModifiedTime 06/22/2006/22/2023 urina lysis , dipst ick Unknown Analyte Normal = light yellow Not Available [address] [place], [address], 06/22/2023 15:23:51 06/22/20 23 06/22/2023 urina lysis , dipst ick Unknown Analyte Normal = clear Not Available [address] [place], [address], 06/22/2023 15:23:51 06/22/20 23 06/22/2023 urina lysis , dipst ick Unknown Analyte Normal = negati ve Not Available [address] [place], [address], 06/22/2023 15:23:51 06/22/20 23 06/22/2023 urina lysis , dipst ick Unknown Analyte Normal = Negati ve Not Available [address] [place], [address], 06/22/2023 15:23:51 06/22/20 23 06/22/2023 urina lysis , dipst ick Unknown Analyte Normal = Negati ve Not Available [address] [place], [address], 06/22/2023 15:23:51 06/22/20 23 06/22/2023 urina lysis , dipst ick Unknown Analyte Normal = 1.010, 1.015, 1.020 Not Available [address] [place], [address], 06/22/2023 15:23:51 06/22/20 23 06/22/2023 urina lysis , dipst ick Unknown Analyte Normal = Negati ve Not Available [address] [place], [address], 06/22/2023 15:23:51 06/22/20 23 06/22/2023 urina lysis , dipst ick Unknown Analyte Normal = 6.5, 7.0, 7.5, 8.0 Not Available [address] [place], [address], 06/22/2023 15:23:51 06/22/2006/22/2023 urina lysis , dipst ick Unknown Analyte Normal = Negati ve Not Available [address] [place], [address], 06/22/2023 15:23:51 06/22/20 23 06/22/2023 urina lysis , dipst ick Unknown Analyte Normal = 0.2, 1.0 Not Available [address] [place], [address], 06/22/2023 15:23:51 06/22/20 23 06/22/2023 urina lysis , dipst ick Unknown Analyte Normal = Negati ve Not Available [address] [place], [address], 06/22/2023 15:23:51 06/22/20 23 06/22/2023 urina lysis , dipst ick Unknown Analyte Normal = Negati ve Not Available [address] [place], [address], 06/22/2023 15:23:51 06/22/20 23 06/22/2023 urina lysis , dipst ick Unknown Analyte Yellow Not Available [address] [facility] [address] [place], [address], 06/22/2023 15:23:51 06/22/20 23 06/22/2023 urina lysis , dipst ick Unknown Analyte Clear Not Available [facility] [address] [place], [address], 06/22/2023 15:23:51 06/22/20 23 06/22/2023 urina lysis , dipst ick Unknown Analyte Negati ve Not Available [address] [place], [address], 06/22/2023 15:23:51 06/22/20 23 06/22/2023 urina lysis , dipst ick Unknown Analyte Negati ve Not Available [address] [place], [address], 06/22/2023 15:23:51 06/22/20 23 06/22/2023 urina lysis , dipst ick Unknown Analyte Negati ve Not Available [address] [place], [address], 06/22/2023 15:23:51 06/22/20 23 06/22/2023 urina lysis , dipst ick Unknown Analyte 1.025 Not Available [facility] [address] [place], [address], 06/22/2023 15:23:51 06/22/20 23 06/22/2023 urina lysis , dipst ick Unknown Analyte Negati ve Not Available [address] [place], [address], 06/22/2023 15:23:51 06/22/20 23 06/22/2023 urina lysis , dipst ick Unknown Analyte 5.5 Not Available [address] [facility] [address] [place], [address], 06/22/2023 15:23:51 06/22/20 23 06/22/2023 urina lysis , dipst ick Unknown Analyte Negati ve Not Available [address] [place], [address], 06/22/2023 15:23:51 06/22/20 23 06/22/2023 urina lysis , dipst ick Unknown Analyte 0.2 E.U./d L Not Available [address] [place], [address], 06/22/2023 15:23:51 06/22/20 23 06/22/2023 urina lysis , dipst ick Unknown Analyte Negati ve Not Available [address] [place], [address], 06/22/2023 15:23:51 06/22/20 23 06/22/2023 urina lysis , dipst ick Unknown Analyte Negati ve Not Available [address] [place], [address], 06/22/2023 15:23:51 Result Notes None recorded. 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 Procedures Surgical History Date Name Laterality Status Provider Name and Address Organization Details Recorded Time cholecystectomy completed NEHA MIRACLENACZ PA - [facility] 06/22/2023 15:24:58 hernia repair completed NEHA MIRACLENACZ PA - [facility] 06/22/2023 15:25:02 Knee arthroscopy/surgery completed NEHAHOLLAND RAUSCHNACZ PA - [facility] 06/22/2023 15:25:05 removal of ectopic fetus completed NEHA MACHNACZ PA - [facility] 06/22/2023 15:25:18 Imaging Results None recorded. Procedure Notes None recorded. Medical Equipment None Reported. Allergies Allergen ID Allergen Name Allergen Category Reaction Reaction Severity Criticality Documentation Date Start Date Code Code System Note Provider Name and Address Organization Details Recorded Time 594465 codeine medicatio n rash Not available Not available 06/22/2023 2670 RxNorm NEHA MACHNACZ null, PA - [facility] 15:20:33 075250 Keflex medicatio n Not available Not available Not available 06/22/202316355 7 RxNorm unkno wn NEHA MACHNACZ null, PA - [facility] 15:20:45 404071 Substance with sulfonami de structure and antibacte rial mechanism of action (substanc e) medicatio n rash Not available Not available 06/22/2023 25516 8003 SNOMED verti go NEHA VANG null, PA - [facility] 3 15:21:09 042025 gabapenti n medicatio n Not available Not available Not available 06/22/2023 04543 RxNorm unkno wn NEHA VANG null, PA - [facility] 15:21:54 Medications Name Sig Start Date Stop Date Status Note LastModified by Organization Details LastModified Time cyclobenzap rine 10 mg tablet TAKE 1 TABLET BY MOUTH 3 TIMES A DAY NEEDED FOR MUSCLE SPASM FOR 10 DAYS 06/22 completed Not Available Not Available Not Available naproxen 375 mg tablet 06/22 completed Not Available Not Available Not Available trazodone 50 mg tablet TAKE 1/2 TO 1 TABLET BY MOUTH AT BEDTIME NEEDED FOR INSOMNIA 06/22 completed Not Available Not Available Not Available azithromyci n 250 mg tablet TAKE 2 TABLETS BY MOUTH TODAY, THEN TAKE 1 TABLET DAILY FOR 4 DAYS 06/22 completed Not Available Not Available Not Available ibuprofen 800 mg tablet TAKE 1 TABLET BY MOUTH THREE TIMES A DAY active Not Available Not Available No t Available meloxicam 15 mg tablet TAKE 1 TABLET BY MOUTH EVERY DAY 06/22 completed Not Available Not Available Not Available tramadol 50 mg tablet TAKE 1 TABLET BY MOUTH TWICE DAILY 06/22 completed Not Available Not Available Not Available triamcinolo ne acetonide 0.1 % topical cream 01/07 completed Not Available Not Available Not Available lorazepam 0.5 mg tablet TAKE 1 TABLET ORALLY BEDTIME NEEDED FOR ANXIETY active Not Available Not Available No t Available methocarbam ol 750 mg tablet TAKE 1 TABLET BY MOUTH EVERY 6 HOURS NEEDED FOR MUSCLE SPASM active Not Available Not Available No t Available acyclovir 5 % topical ointment APPLY TO AFFECTED AREA 6 TIMES DAILY 01/07 completed Not Available Not Available Not Available dexamethaso ne 4 mg tablet TAKE 1 TABLET BY MOUTH THREE TIMES DAILY 06/22 completed Not Available Not Available Not Available lidocaine 5 % topical patch 06/22 completed Not Available Not Available Not Available gabapentin 300 mg capsule TAKE 1 CAPSULE BY MOUTH EVERYDAY AT BEDTIME 06/22 completed Not Available Not Available Not Available alclometaso ne 0.05 % topical ointment APPLY TO FACE, NECK, TRUNK, ARMS, LEGS TWICE A DAY NEEDED 01/07 completed Not Available Not Available Not Available lorazepam 1 mg tablet TAKE 1/2 TABLET BY MOUTH 2 TIMES A DAY NEEDED FOR ANXIETY active Not Available Not Available No t Available epinephrine 0.3 mg/0.3 mL injection, auto-inject or INJECT 0.3 MG (0.3 ML) INTRAMUSC ULARLY ONCE NEEDED FOR ANAPHYLAX IS FOR 2 DOSES active Not Available Not Available No t Available scopolamine 1 mg over 3 days transdermal patch APPLY 1 PATCH TRANSDERM ALLY BEHIND THE EAR EVERY 3 DAYS NEEDED FOR NAUSEA AND VOMITING 01/07 completed Not Available Not Available Not Available methylpredn isolone 4 mg tablets in a dose pack TAKE 6 TABLETS ON DAY 1 DIRECTED ON PACKAGE AND DECREASE BY 1 TAB EACH DAY FOR A TOTAL OF 6 DAYS 06/22 completed Not Available Not Available Not Available ketoconazol e 2 % topical cream active Not Available Not Available Not Available fluticasone propionate 50 mcg/actuati on nasal spray,suspe nsion INHALE 2 SPRAYS INTO EACH NOSTRIL ONCE DAILY NEEDED FOR ALLERGY SYMPTOMS 06/22 completed Not Available Not Available Not Available amoxicillin 875 mg-potassiu m clavulanate 125 mg tablet Take 1 tablet every 12 hours by oral route for 10 days. 2023 active Not Available Not Available Not Avai lable fenofibrate nanocrystal lized 145 mg tablet TAKE 1 TABLET BY MOUTH EVERY DAY *FILL 2.10* active Not Available Not Available No t Available Otezla 30 mg tablet active Not Available Not Available No t Available COVID-19 At-Home Test kit FOLLOW INSTRUCTI ONS INCLUDED WITH THE PACKAGE. 06/22 completed Not Available Not Available Not Available Vitals Date Recorded Body temperature Pain severity - 0-10 verbal numeric rating [Score] - Reported Oxygen saturation Oxygen saturation in Arterial blood by Pulse oximetry Heart rate Respiratory rate Body height Body mass index (BMI) Body weight Systolic blood pressure Diastolic blood pressure Provider Name and Address Organization Details Last Updated DateTime 3 97.9 [degF] 7 97 % 97 % 69 /min 16 /min 157.48 cm 32.2 kg/m2 97759.2 6 g 113 mm[Hg] 78 mm[Hg] NEHA RAUSCHZAIRE PA - [facility] 3 15:28:11 Date Recorded Body height Body mass index (BMI) Body weight Respiratory rate Pain severity - 0-10 verbal numeric rating [Score] - Reported Body temperature Oxygen saturation Oxygen saturation in Arterial blood by Pulse oximetry Heart rate Systolic blood pressure Diastolic blood pressure Provider Name and Address Organization Details Last Updated DateTime 4 157.48 cm 28.3 kg/m2 43923.8 2 g 18 /min 8 97.7 [degF] 99 % 99 % 72 /min 121 mm[Hg] 78 mm[Hg] Jeanine Nicholsadama PA - [facility] 4 10:27:47 Social History Question Answer Notes LastModified by Organizat ion Details LastModified Time Tobacco Smoking Status Former Smoker quit 27 years old NEHA barnes PA - [facility] 06/22/2023 15:24:43 What Is Your Level Of Alcohol Consumption? None Information not available 01/07/2024 Have You Had Direct Contact, Or Contact During Intimacy, With Monkeypox Rash, Scabs, Or Body Fluids From A Person With Monkeypox? No Information not available 01/07/2024 What Was The Date Of Your Most Recent Tobacco Screening? 01/07/2024 Information not available 01/07/2024 Do You Use Any Illicit Or Recreational Drugs? No Information not available 06/22/2023 Have You Recently Traveled Abroad? No Information not available 06/22/2023 Do You Or Have You Ever Used Any Other Forms Of Tobacco Or Nicotine? No Information not available 06/22/2023 Sex: Unknown Functional Status None recorded. Mental Status None recorded. Family History Relationship Description Onset Age of this Age Resolved Age Notes LastModified by Organization Details LastModified Time Father No current problems or disability [email or web address] Not available 06/22 15:23:53 Mother No current problems or disability [email or web address] Not available 06/22 15:23:53 Medical History No medical history recorded. Gynecological History Statement/Question Response Date of LMP 03/12/2023 Is there any chance of ? No LMP Approximate Obstetrics History GPAL:G 0 P 0 0 0 0 Immunizations Vaccine Type Date Status Note Provider Nam e and Address Organization Details Recorded Time Tdap 06/26/2015 completed ANNALEE Hoff - [facility] 06/22/2023 15:18:24 Past Encounters Encounter ID Performer Location Encounter Start Date Encounter Closed Date Diagnosis/Indication Diagnosis SNOMED-CT Code Diagnosis ICD10 Code Diagnosis Note [id number] [address] [facility] [place] [address] 04/21/2019 08:49:30 04/21/2019 09:47:46 [id number] [address] [facility] [place] [address] 11/09/2019 15:30:09 11/09/2019 16:35:26 [id number] [address] [facility] [place] [address] 06/30/2019 11:03:03 06/30/2019 11:44:11 [id number] [address] [address] [place] [address] 03/11/2022 12:07:57 03/11/2022 14:04:46 [id number] [address] [facility] [place] [address] 12/21/2017 10:05:23 12/21/2017 11:51:42 [id number] [address] [address] [place] [address] 04/09/2022 15:15:03 04/09/2022 17:42:00 [id number] Bettina Benavides MD [address] [facility] [place] [address] 06/22/2023 15:06:12 06/22/2023 16:29:49 Acute back pain with sciatica 434740803 M54.41 [id number] ANNALEE Rosas [address] [facility] [place] [address] 01/07/2024 10:11:45 01/07/2024 11:06:41 Acute right otitis media 562709278 H66.91 Health Concerns Section Related Observation LastModified by Organization Detai ls LastModified Time None Recorded Concern Status LastModified by Organization Details LastModified Time None Recorded Advance Directives Directive None Recorded Payers Encounter Date Sequence Insurance Name Policy Number Policy Gillespie Covered Member ID Gillespie Member ID Guarantor Name 03/11/2022 1 [place] 106 Dasia Carballo [id number] Dasia Carballo 04/09/2022 1 [place] [employer] Dasia Carballo [id number] Dasia Carballo 06/22/2023 2 [place] Dasia Carballo [id number] Dasia Carballo 06/22/2023 1 [place] 106 Dasia Carballo [id number] Dasia Carballo 01/07/2024 2 [place] Dasia Carballo [id number] Dasia Carballo 01/07/2024 1 [place] 106 Dasia Carballo [id number] Dasia Carballo Notes Date Note Type Note Provider Name and Address Organization Details Recorded Time 06/22/20 23 text/htm l Back Pain/Injury UCReported bypatient.source of patient informationInformation obtained from patient; Patient arrived at Urgent Care ambulatory Location:Radiates to right buttock. Quality:dull; Aching. Duration:5 days Context:atraumatic; prior back problems Alleviating Factors:rest Aggravating Factors:bending over/standing up;movement/positioning;pr olonged sitting or lying;walking Associated Symptoms:No numbness or weakness of the extremities. No bowel or bladder dysfunction. No saddle anesthesia. No dysuria or fever. Previous InjuryIntermittent low back pain for several months. Worse for 5 days, now with radiation to right buttock. Prior Imaging:noneNotes:52 year old female with hx cervical radiculopathy, intermittent lower back pain for several months, presenting for evaluation of worsening lower back pain with new radiation of the pain to her right buttock for the past 5 days. No hx of trauma. The pain is worse with movement. No numbness or weakness of the extremities. No bowel or bladder dysfunction. No saddle anesthesia. No dysuria, hematuria, fever, chills or abdominal pain. Bettina Benavides MD [address] [place], [address], PA - [facility] 06/25/2023 16:42:23 01/07/20 24 text/htm l Ear Pain Brief HPIReported bypatient.Location:pain radiates to jaw; right Quality:no itching; no discharge from the ears;deep pain; pain in mouth and teeth which radiates to jaw, recent dental work Context:no recent swimming; no immunocompromise; no recent airplane travel;dental problems Associated Symptoms:no cough; no jaw popping or clicking; No decreased appetite; no discharge from ear; no nasal congestion; no nasal discharge; did have mild cold about a week ago which is now resolved ANNALEE Hawthorne [address] [place], [address], PA - [facility] 01/07/2024 11:05:54 OBGyn Episode No OBEpisode recorded.
--- OUTSIDE RECORDS SUMMARY | 2024-12-25 15:27 | XMS_ITS | Clinical Summary ---
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
== END 2024-12-25 14:34 | disposition home or self-care (01) ==
PROVIDERS: PCP Internal Medicine; Visit Provider Internal Medicine
DX: R05.9 Cough, unspecified (principal)

== ENCOUNTER 2025-04-10 15:06 | Outpatient (AMB) | payer BC, MEDICAID, SELFPAY ==
--- OUTSIDE RECORDS SUMMARY | 2025-04-10 15:09 | XMS_ITS | Data Portability ---
Author Organization [facility], [address] Address [address] [place] [address] Care Team Providers Care Commercial Technician Name Role Phone PATRICIASUGAR CHAUHDARY Primary Care Provider Assessment No assessment recorded. Plan of Treatment Reminders Order Date Submit Date Provider Last Modified By Organization Details Last Modified Time Details Appointments None recorded. Lab urinalysis, dipstick 2022 023 [email or web address] [address], [address] [place], [address], 3 16:21:03 Referral None recorded. Procedures None recorded. Surgeries None recorded. Imaging None recorded. Medication Orders amoxicillin 875 mg-potassiu m clavulanate 125 mg tablet 2023 024 [facility] #[id number], [address] [place], [address], 4 11:04:48 Medrol (Gabino) 4 mg tablets in a dose pack 2022 024 [facility] #[id number], [address] [place], [address], 4 10:24:26 Patient TargetsNo targets recorded. Patient Instructions Encounter Date Encounter Id Patient Instructions Last Modified By Organization Details Last Modified Time 06/22/2023 [id number] getting back to normal after low back pain: care instructions [email or web address] Not available 06/22/2023 16:21:00 sciatica: exercises [email or web address] Not available 06/22/2023 16:21:00 sciatica education [email or web address] Not available 06/22/2023 16:21:01 sciatica: care instructions [email or web address] Not available 06/22/2023 16:21:00 Take the medrol as prescribed. Do not take ibuprofen or related medication while taking the medrol. Tylenol may be taken with the medrol if needed. See printed instructions and work note. Keep your appointment as scheduled with [facility]. Seek Emergency Medical evaluation for any worsening symptoms, particularly for worsening pain, bowel or bladder dysfunction, numbness in genital area or weakness of the lower extremities. [email or web address] Not available 06/22/2023 16:22:49 01/07/2024 [id number] You have a middl e ear infection [...] yellow Not Available [address] [place], [address], 06/22/2023 15:23:51 06/22/20 23 06/22/2023 urina lysis , dipst ick Unknown Analyte Normal = clear Not Available [address] [place], [address], 06/22/2023 15:23:51 06/22/20 23 06/22/2023 urina lysis , dipst ick Unknown Analyte Normal = negati ve Not Available [address] [place], [address], 06/22/2023 15:23:51 06/22/20 23 06/22/2023 urina lysis , dipst ick Unknown Analyte Normal = Negati ve Not Available [address] [place], [address], 06/22/2023 15:23:51 06/22/20 23 06/22/2023 urina lysis , dipst ick Unknown Analyte Normal = Negati ve Not Available [address] [place], [address], 06/22/2023 15:23:51 06/22/20 23 06/22/2023 urina lysis , dipst ick Unknown Analyte Normal = 1.010, 1.015, 1.020 Not Available [address] [place], [address], 06/22/2023 15:23:51 06/22/20 23 06/22/2023 urina lysis , dipst ick Unknown Analyte Normal = Negati ve Not Available [address] [place], [address], 06/22/2023 15:23:51 06/22/20 23 06/22/2023 urina lysis , dipst ick Unknown Analyte Normal = 6.5, 7.0, 7.5, 8.0 Not Available [address] [place], [address], 06/22/2023 15:23:51 06/22/2006/22/2023 urina lysis , dipst ick Unknown Analyte Normal = Negati ve Not Available [address] [place], [address], 06/22/2023 15:23:51 06/22/20 23 06/22/2023 urina lysis , dipst ick Unknown Analyte Normal = 0.2, 1.0 Not Available [address] [place], [address], 06/22/2023 15:23:51 06/22/20 23 06/22/2023 urina lysis , dipst ick Unknown Analyte Normal = Negati ve Not Available [address] [place], [address], 06/22/2023 15:23:51 06/22/20 23 06/22/2023 urina lysis , dipst ick Unknown Analyte Normal = Negati ve Not Available [address] [place], [address], 06/22/2023 15:23:51 06/22/20 23 06/22/2023 urina lysis , dipst ick Unknown Analyte Yellow Not Available [address] [facility] [address] [place], [address], 06/22/2023 15:23:51 06/22/20 23 06/22/2023 urina lysis , dipst ick Unknown Analyte Clear Not Available [facility] [address] [place], [address], 06/22/2023 15:23:51 06/22/20 23 06/22/2023 urina lysis , dipst ick Unknown Analyte Negati ve Not Available [address] [place], [address], 06/22/2023 15:23:51 06/22/20 23 06/22/2023 urina lysis , dipst ick Unknown Analyte Negati ve Not Available [address] [place], [address], 06/22/2023 15:23:51 06/22/20 23 06/22/2023 urina lysis , dipst ick Unknown Analyte Negati ve Not Available [address] [place], [address], 06/22/2023 15:23:51 06/22/20 23 06/22/2023 urina lysis , dipst ick Unknown Analyte 1.025 Not Available [facility] [address] [place], [address], 06/22/2023 15:23:51 06/22/20 23 06/22/2023 urina lysis , dipst ick Unknown Analyte Negati ve Not Available [address] [place], [address], 06/22/2023 15:23:51 06/22/20 23 06/22/2023 urina lysis , dipst ick Unknown Analyte 5.5 Not Available [address] [facility] [address] [place], [address], 06/22/2023 15:23:51 06/22/20 23 06/22/2023 urina lysis , dipst ick Unknown Analyte Negati ve Not Available [address] [place], [address], 06/22/2023 15:23:51 06/22/20 23 06/22/2023 urina lysis , dipst ick Unknown Analyte 0.2 E.U./d L Not Available [address] [place], [address], 06/22/2023 15:23:51 06/22/20 23 06/22/2023 urina lysis , dipst ick Unknown Analyte Negati ve Not Available [address] [place], [address], 06/22/2023 15:23:51 06/22/20 23 06/22/2023 urina lysis , dipst ick Unknown Analyte Negati ve Not Available [address] [place], [address], 06/22/2023 15:23:51 Result Notes None recorded. 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 Radiculopat hy of neck NEHA MIRACLENACZ null, PA - [facility] 15:23:21 Anxiety 93793801 Active 2022 NEHA MACHNACZ null, PA - [facility] 15:23:33 Hyperlipid emia 11795978 Active 2022 NEHA MACHNACZ null, PA - [...] Name and Address Organization Details Recorded Time 214049 codeine medicatio n rash Not available Not available 06/22/2023 2670 RxNorm NEHA MACHNACZ null, PA - [facility] 15:20:33 412775 Keflex medicatio n Not available Not available Not available 06/22/202331300 7 RxNorm unkno wn NEHA MACHNACZ null, PA - [facility] 15:20:45 971066 Substance with sulfonami de structure and antibacte rial mechanism of action (substanc e) medicatio n rash Not available Not available 06/22/2023 55121 8003 SNOMED verti go NEHA VANG null, PA - [facility] 3 15:21:09 300808 gabapenti n medicatio n Not available Not available Not available 06/22/2023 74559 RxNorm unkno wn NEHA VANG null, PA [...] Available Not Available Vitals Date Recorded Body height Body mass index (BMI) Body weight Respiratory rate Body temperature Oxygen saturation Oxygen saturation in Arterial blood by Pulse oximetry Heart rate Systolic blood pressure Diastolic blood pressure Provider Name and Address Organization Details Last Updated DateTime 4 157.48 cm 28.3 kg/m2 54703.8 2 g 18 /min 97.7 [degF] 99 % 99 % 72 /min 121 mm[Hg] 78 mm[Hg] Jeanine MANTILLA - [facility] 4 10:27:47 Date Recorded Body temperature Oxygen saturation Oxygen saturation in Arterial blood by Pulse oximetry Heart rate Respiratory rate Body height Body mass index (BMI) Body weight Systolic blood pressure Diastolic blood pressure Provider Name and Address Organization Details Last Updated DateTime 3 97.9 [degF] 97 % 97 % 69 /min 16 /min 157.48 cm 32.2 kg/m2 50155.2 6 g 113 mm[Hg] 78 mm[Hg] NEHA VANG PA - [facility] 3 15:28:11 Social History Question Answer Notes LastModified by [employer] Details LastModified Time Tobacco Smoking Status Former Smoker quit 27 years old NEHA barnes PA - [facility] 06/22/2023 15:24:43 Have You Had Direct Contact, Or Contact During Intimacy, With Monkeypox Rash, Scabs, Or Body Fluids From A Person With Monkeypox? No Information not available 01/07/2024 What Was The Date Of Your Most Recent Tobacco Screening? 01/07/2024 Information not available 01/07/2024 Have You Recently Traveled Abroad? No Information not available 06/22/2023 Sex: Unknown Functional Status Question Answer Note LastModified by [employer] Details LastModified Time Do you use any illicit or recreational drugs? No Information not available 06/22/2023 Do you or have you ever used any other forms of tobacco or nicotine? No Information not available 06/22/2023 What is your level of alcohol consumption? None Information not available 01/07/2024 Mental Status None recorded. Family History Relationship [...] SNOMED-CT Code Diagnosis ICD10 Code Diagnosis Note [id number] [address] [place] [address] 04/21/2019 08:49:30 04/21/2019 09:47:46 [id number] [address] [place] [address] 11/09/2019 15:30:09 11/09/2019 16:35:26 [id number] [address] [place] [address] 06/30/2019 11:03:03 06/30/2019 11:44:11 [id number] [address] [place] [address] 03/11/2022 12:07:57 03/11/2022 14:04:46 [id number] [address] [place] [address] 12/21/2017 10:05:23 12/21/2017 11:51:42 [id number] [address] [place] [address] 04/09/2022 15:15:03 04/09/2022 17:42:00 [id number] Bettina Benavides MD [address] [place] [address] 06/22/2023 15:06:12 06/22/2023 16:29:49 Acute back pain with sciatica [id number] M54.41 [id number] ANNALEE Rosas [address] [facility] [address] [facility] [address] 01/07/2024 10:11:45 01/07/2024 11:06:41 Acute right otitis media 514293134 H66.91 Health Concerns Section Related Observation LastModified by Organization Detai ls LastModified Time None Recorded Concern Status LastModified by Organization Details LastModified Time None Recorded Advance Directives Directive None Recorded Payers Insurance Date Sequence Insurance Name Policy Number Policy Gillespie Covered Member ID Gillespie Member ID Guarantor Name 01/07/2024 2 [place] [facility] Dasia Carballo [id number] Dasia Carballo 01/07/2024 1 [place] Dasia Carballo [id number] Dasia Carballo Notes Date Note Type Note [...] Bettina Benavides MD [address] [place], [address], PA - [facility] 06/25/2023 16:42:23 01/07/20 [...] which is now resolved ANNALEE Hawthorne [address], [place], [address], PA - [facility] 01/07/2024 11:05:54 OBGyn Episode No OBEpisode recorded.
--- NOTE | 2025-04-10 15:14 | A.OFFPC_ITS ---
Vital Signs 04/10/25 15:15 Height 5 ft 1 in Weight 169 lb BMI 31.9 BP 118/82 Blood Pressure Location Lt brachial Position Sitting Intake Visit Reasons: Transfer Care from Dr. Flores 3mth f/u Manager Ob Required: No Accompanied by: Self / Same As Patient Allergies cephalexin [Keflex] Allergy (Unknown, Verified 04/10/25 15:28) Unknown codeine Allergy (Unknown, Verified 04/10/25 15:28) Unknown Sulfa (Sulfonamide Antibiotics) Allergy (Unknown, Verified 04/10/25 15:28) Vertigo, rash Medication List - Last Reconciled 04/10/25 by Jessica Mcclure MD acyclovir 5% 1 appl topical 6XD albuterol sulfate 90 mcg/actuation 2 puffs inhalation Q4-6H PRN 30 days apremilast (Otezla) 30 mg PO BID epinephrine (EpiPen 2-Gabino) 0.3 mg (0.3 mL) IM ONCE PRN fenofibrate nanocrystallized 145 mg PO DAILY ibuprofen 800 mg PO TID lorazepam 0.5 mg (1/2 x 1 mg) PO BID PRN prednisone 40 mg PO DAILY Tobacco use date assessed: 12/25/24 Dental Screening Dental Screen Date: 12/18/24 HPI HPI Comments History of Present Illness Details The patient is a 54-year-old female presenting with generalized anxiety disorder, alcohol use disorder, and musculoskeletal pain. She experiences significant anxiety related to her work environment at the [employer]. 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 The anxiety contributes to her alcohol use, which she struggles to manage, leading to weight gain and depressive symptoms. She reports chronic musculoskeletal pain, particularly in the hips and elbow, with concerns about potential back issues. The patient experiences generalized body aches and tightness in her joints, suggesting a possible rheumatologic condition. She has a history of scalp psoriasis, allergic rhinitis, elevated triglycerides, and a positive JESSICA, indicating a potential autoimmune disorder. [facility] Medical History (Updated 04/11/25 @ 10:32 by Jessica Mcclure MD) Physical exam Strain of right triceps muscle Anxiety Anxiety Surgical History History of ectopic History of elbow surgery H/O left knee surgery History of umbilical hernia repair Family History Father Medical history unknown Mother Medical history unknown Family/Other Hyperlipidemia Diabetes Social History (Updated 04/10/25 @ 15:33 by Jessica Mcclure MD) Housing: House Alcohol intake: current Alcohol intake frequency: a few times a week Alcohol type: wine Patient Tobacco Use Status: Former Tobacco user Tobacco use type: Cigarette e-Cigarette/Vaping Use: Never Used Second Hand Smoke Exposure: No service: No Current occupational status: employed 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 1. Little interest or pleasure in doing things: more than half the days 2. Feeling down, depressed, or hopeless: more than half the days 3. Trouble falling or staying asleep, or sleeping too much: more than half the days 4. Feeling tired or having little energy: more than half the days 5. Poor appetite or overeating: more than half the days 6. Feeling bad about yourself - or that you are a failure or have let yourself or your family down: several days 7. Trouble concentrating on things, such as reading the newspaper or watching television: nearly every day 8. Moving or speaking so slowly that other people could have noticed. Or the opposite - being so fidgety or restless that you have been moving around a lot more than usual: not at all 9. Thoughts that you would be better off or of hurting yourself in some way: not at all Total score: 14 Depression Screening Interpretation: Positive Depression Screening Follow-up: Existing condition, Community Mental Health Worker F/U and Follow-up Visit Requested Depression Screening Done: Yes 90850 - PHQ-9 Billing: Yes Source: Developed by Drs. Sundar Abbasi, Latia Kwon, Bran Manzanares and colleagues, with an educational madison from [employer]. Thrive Questionnaire Date Thrive assessed: 04/03/25 I am a: Patient What is your living situation today?: I have a steady place to live Within the past 12 months, did the food you bought not last and you didn't have the money to get more?: Sometimes True Within the past 12 months, did you worry whether your food would run out before you got money to buy more?: Sometimes True Do you have trouble paying for medicines?: No Do you have trouble getting transportation to medical appointments?: No Do you have trouble paying your heating and electricity bill?: Yes Do you have trouble taking care of your child, family member or friend?: No Do you have trouble with day-to-day activities such as bathing, preparing meals, shopping, managing finances, etc.?: Yes Are you currently unemployed and looking for a job?: No Are you interested in more education?: Yes Please select the resources that you would like help with: Food, Utilities, Job search/training and Education Currently or been in a relationship where the following occur: No concerns reported THRIVE Score: 3 AUDIT C Alcohol Use Questionnaire (AUDIT-C) 1. How often do you have a drink containing alcohol?: 4 or more times a week 2. How many drinks containing alcohol do you have on a typical day when you are drinking?: 1 or 2 3. How often do you have six or more drinks on one occasion?: Monthly Total Score: 6 JAN-7 AMB Questionnaire JAN-7 Date JAN - 7 assessed: 12/18/24 Feeling nervous, anxious, or on edge: 3 = Nearly every day Not being able to stop or control worryin = Nearly every day Worrying too much about different things: 3 = Nearly every day Trouble relaxin = Nearly every day Being so restless that it is hard to sit still: 0 = Not at all Becoming easily annoyed or irritable: 1 = Several days Feeling afraid as if something awful might happen: 0 = Not at all Total JAN-7 score (0-4 normal; 5-9 mild; 10-14 moderate; 15-21 severe): 13 Source: Developed by Drs. Sundar Abbasi, Latia Kwon, Bran Manzanares and colleagues, with an educational madison from [employer]. JAN-7 Assessment Billing JAN-7 Assessment Tool: JAN-7 Assessment 62669 Review of Systems Const All systems reviewed & are unremarkable except as noted in HPI and below Card Denies chest pain at rest, Denies chest pain with activity, Denies edema, Denies irregular heart rhythm, Denies claudication, Denies dyspnea, Denies dyspnea on exertion, Denies orthopnea, Denies paroxysmal nocturnal dyspnea and Denies slow heart rate Resp Denies cough, Denies dyspnea and Denies dyspnea on exertion GI Denies abdominal pain, Denies change in bowel habits, Denies excessive flatus, Denies nausea and Denies vomiting Denies urinary incontinence, Denies urinary hesitancy and Denies urinary urgency Musc Denies abnormal gait, Denies atrophy, Denies deformity and Denies limited range of motion Skin/Breast Denies bleeding lesions, Denies changing lesions and Denies rash Neuro Denies abnormal gait and Denies lack of coordination Physical exam (Primary Care) Vital Signs: Last Vital Signs BP 118/82 04/10/25 15:15 BMI result Body Mass Index 31.9 BMI Assessment/Plan discussion: High BMI High, discussed plan: lifestyle, weight reduction, dietary and physical activity Tobacco/Smoking Status: Tobacco use Status Tobacco use date assessed 12/25/24 04/10/25 15:23 Patient Tobacco Use Status Former Tobacco user 04/10/25 15:33 Tobacco use type Cigarette 04/10/25 15:33 e-Cigarette/Vaping Use Never Used 04/10/25 15:33 PHQ-9: PHQ-9 Score PHQ-9: Total score 14 04/10/25 15:36 Depression Screening Interpretation: Positive Depression Screening Follow-up: Existing condition, Community Mental Health Worker F/U and Follow-up Visit Requested Thrive Assessment: Date of Thrive Assessment Date Thrive assessed 04/03/25 04/10/25 15:23 Currently or been in a relationship where the following occur: No concerns reported Neck Neck: Yes normal visual inspection and Yes supple Resp Effort & Inspection: normal respiratory effort Auscultation: clear to auscultation bilaterally Cardio Jugular venous distension: no JVD Rate: regular rate Rhythm: regular rhythm Heart sounds: S1 normal heart sound present and S2 normal heart sound present Extrem General: Yes full ROM Coding Level of Care Code Est Pt Level 4 (95354) Complex EM visit Add On G2211 Diagnoses Polyarthralgia M25.50 Allergic rhinitis J30.9 Alcohol use disorder F10.90 JAN (generalized anxiety disorder) F41.1 Scalp psoriasis L40.9 Moderate recurrent major depression F33.1 Additional Codes JAN-7 Assessment Billing - JAN-7 Assessment Tool: JAN-7 Assessment 46739 ([id number]) PHQ-9 - 10296 - PHQ-9 Billing: Yes ([id number]) Time Spent (min) 24 Assessment & Plan Assessment & Plan (1) Polyarthralgia: Code(s): M25.50 - Pain in unspecified joint Category: Medical (2) Allergic rhinitis: Code(s): J30.9 - Allergic rhinitis, unspecified Category: Medical (3) Alcohol use disorder: Code(s): F10.90 - Alcohol use, unspecified, uncomplicated Category: Medical (4) JAN (generalized anxiety disorder): Code(s): F41.1 - Generalized anxiety disorder Category: Medical (5) Scalp psoriasis: Code(s): L40.9 - Psoriasis, unspecified Category: Medical (6) Moderate recurrent major depression: Code(s): F33.1 - Major depressive disorder, recurrent, moderate Category: Medical Plan The patient will continue therapy for anxiety management and is advised to maintain sobriety with support from therapy or an alcohol cessation program. A referral to rheumatology is recommended for further evaluation of her musculoskeletal pain. Blood tests will be scheduled in June to monitor triglycerides and potential autoimmune disorders. Continuation of Otezla for scalp psoriasis is advised, and Flonase should be refilled for allergic rhinitis. She is encouraged to reschedule her mammogram appointment. Lifestyle modifications, including alcohol reduction and potential physical therapy, are recommended. Patient was informed and verbally consented to the use of an ambient scribe for clinic note documentation during this visit. During the consultation, I discussed the management of the patient's generalized anxiety disorder, emphasizing the importance of continued therapy and exploring medication adjustments if necessary. We addressed her alcohol use disorder, recommending sobriety support through therapy or a cessation program. The possibility of a rheumatologic condition was considered, prompting a referral to rheumatology for a comprehensive evaluation. Blood tests will be conducted in June to assess her triglycerides and potential autoimmune disorders. The patient will continue Otezla for her scalp psoriasis, and a refill for Flonase was arranged. We also reviewed the importance of routine mammograms and encouraged her to reschedule the appointment. Lifestyle modifications, including reducing alcohol intake and engaging in physical therapy, were discussed to manage her musculoskeletal symptoms. Orders: Orders Lipid Panel 3 Months E78.5 - Hyperlipidemia, unspecified Comprehensive [place]. Panel Fast 3 Months J45.909 - Unspecified asthma, uncomplicated Complete Blood Count Auto Diff 3 Months D64.9 - Anemia, unspecified JESSICA Reflex Titer and Pattern 3 Months M25.50 - Pain in unspecified joint Erythrocyte Sedimentation Rate 3 Months M25.50 - Pain in unspecified joint Cyclic Citrullinated Peptide 3 Months M25.50 - Pain in unspecified joint Rheumatoid Factor 3 Months M25.50 - Pain in unspecified joint C Reactive Protein 3 Months M25.50 - Pain in unspecified joint HLA B27 3 Months M25.50 - Pain in unspecified joint Referrals Rheumatology Referral M25.50 - Pain in unspecified joint Medications: New fluticasone propionate 50 mcg/actuation (Flonase Allergy Relief) administer into each nostril 1 spray intranasal BID 16 grams 2RF 30 days J30.9 - Allergic rhinitis, unspecified Patient Instructions: - Continue therapy for anxiety management. - Reduce alcohol consumption and consider joining a support program. - Schedule blood tests in June for cholesterol, sugar, and autoimmune markers. - Reschedule a mammogram appointment. - Refill and use Flonase for allergic rhinitis as needed. - Consider physical therapy for musculoskeletal pain management. - Follow up with rheumatology as recommended.
[2025-04-10 15:15] VITALS: BP 118/82; BMI 31.9
== END 2025-04-10 15:54 | disposition home or self-care (01) ==
LOC: HO.HMCH 15:07
PROVIDERS: PCP Internal Medicine; Visit Provider Internal Medicine
DX: J30.9 Allergic rhinitis, unspecified (principal); M25.50 Pain in unspecified joint; F33.1 Major depressive disorder, recurrent, moderate; F10.90 Alcohol use, unspecified, uncomplicated; F41.1 Generalized anxiety disorder; L40.9 Psoriasis, unspecified

== ENCOUNTER → 2025-04-10 15:06 | Outpatient (BNVA) | payer BC, MEDICAID, SELFPAY | PROVIDERS: PCP Internal Medicine; Visit Provider Internal Medicine | DX: M25.50 Pain in unspecified joint (principal); J30.9 Allergic rhinitis, unspecified; F10.90 Alcohol use, unspecified, uncomplicated; F41.1 Generalized anxiety disorder; L40.9 Psoriasis, unspecified; F33.1 Major depressive disorder, recurrent, moderate | CPT/HCPCS: 96127 ==

== ENCOUNTER 2025-06-17 09:52 | Outpatient (REF) | payer BC, MEDICAID, SELFPAY ==
[2025-06-17 12:02] LABS: MANUAL DIFF FLAG NO
[2025-06-17 12:12] LABS: Hematocrit 37.2 % (37.0-47.0); Hemoglobin 12.3 g/dl (12.0-16.0); Imm Gran Abs Auto 0.00 X10*3/uL (0.00-0.03); Imm Gran Pct Auto 0.0 % (0.0-0.4); Lymphocytes Absolute Auto 1.1 X10*3/uL (1.2-4.9); Mean Corpuscular HGB Conc 33.1 g/dl (31.0-35.0); Mean Corpuscular Hemoglobin 29.9 pg (27.0-33.0); Mean Corpuscular Volume 90.5 fL (80.0-98.0); NRBC Abs Auto 0.000 X10*3/uL (0.0-0.012); NRBC Pct Auto 0.0 /100WBC (0.0-0.2); Platelet Count 245 X10*3/uL (160-400); Red Blood Count 4.11 X10*6/uL (4.20-5.50); White Blood Count 3.7 X10*3/uL (4.8-10.8)
[2025-06-17 12:38] LABS: Alanine Aminotransferase 18 U/L (0-31); Albumin Level 4.6 g/dL (3.5-5.0); Alkaline Phosphatase 62 U/L (39-117); Anion Gap 14 (12-20); Aspartate Amino Transferase 27 U/L (5-31); Blood Urea Nitrogen 17 mg/dL (9-16); Calcium 10.1 mg/dL (8.4-10.2); Carbon Dioxide 24 mmol/L (22-29); Chloride 110 mmol/L (96-108); Cholesterol 163 mg/dL (<200); Estimated Glomerular Filt Rate > 60; HDL Cholesterol 60 mg/dL (>40); Potassium 3.8 mmol/L (3.3-5.1); Sodium 144 mmol/L (135-145); Total Protein 7.6 g/dL (6.5-8.0); Triglycerides 59 mg/dL (<150)
[2025-06-21 15:24] LABS: Anti Nuclear Antibody Pattern Nuclear, Speckled; Anti Nuclear Antibody Screen POSITIVE (NEGATIVE); Anti Nuclear Antibody Titer 1:80 titer; HLA B27 Negative (Negative)
== END 2025-06-17 09:53 | disposition home or self-care (01) ==
LOC: HO.LAB 09:52
PROVIDERS: PCP Internal Medicine
DX: M25.512 Pain in left shoulder (principal); E78.5 Hyperlipidemia, unspecified; J45.909 Unspecified asthma, uncomplicated; D64.9 Anemia, unspecified; Z01.84 Encounter for antibody response examination
CPT/HCPCS: 36415; 80053; 80061; 85025; 85652; 86038; 86039; 86140; 86200; 86431; 86812; 99212

== ENCOUNTER 2025-06-17 09:52 | Outpatient (AMB) | payer OTHER, SELFPAY ==
[2025-06-17 09:58] VITALS: BP 108/72; PULSE 52; TEMP 36.7; O2SAT 99; BMI 31.8
--- NOTE | 2025-06-17 09:58 | AM.OFFWIN_ITS ---
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 - She states that the package was being pulled with her left hand and fell, pulling her left arm down and pulling on the left shoulder. - She visited the [facility] emergency room y esterday where an x-ray was performed, but no MRI was conducted. - The patient reports pain in the biceps region, exacerbated by movement, and inability to lift her arm fully. - She was advised to follow up with her primary care physician for further evaluation and potential MRI. - The patient called her PCP and left a message for an MRI request twice. - She was referred to ortho yesterday. - The patient has a history of a similar shoulder issue three years ago on the right. - She denies chest pain, neck pain, back pain, lower arm pain, wrist pain or hand pain. - She is right hand dominant. Physical Exam General: Cooperative, healthy appearing, comfortable, no acute distress and well developed Orientation: Patient oriented x3 Limitations: Cannot use left upper extremity Respiratory: Normal respiratory effort and able to speak in complete sentences. Clear to auscultation bilaterally. No w/r/r noted. Cardiovascular: Regular rate and rhythm. Normal S1 and S2 Skin: No rashes or lesions noted Neuro: Sensation intact. Extremities: No deformity noted. Decrease active ROM of the left shoulder due to pain. Decrease passive ROM of the left shoulder at 90 degrees. No TTP of the left clavicle. TTP of the left AC joint, anterior shoulder, bicipital groove and upper bicep. Supination and pronation intact. FROM of the left elbow and wrist. Hand clinical psychiatrist is intact. Strength is 4/5 on the UE. Patient was informed and verbally consented to the use of an ambient scribe for clinic note documentation during this visit. [facility] Medical History Physical exam Strain of right triceps muscle Anxiety Anxiety Surgical History History of ectopic History of elbow surgery H/O left knee surgery History of umbilical hernia repair Family History Father Medical history unknown Mother Medical history unknown Family/Other Hyperlipidemia Diabetes Social History (Updated 04/10/25 @ 15:33 by Jessica Mcclure MD) Housing: House Alcohol intake: current Alcohol intake frequency: a few times a week Alcohol type: wine Patient Tobacco Use Status: Former Tobacco user Tobacco use type: Cigarette e-Cigarette/Vaping Use: Never Used Second Hand Smoke Exposure: No service: No Current occupational status: employed 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 Current occupational exposures/hazards: No Cognitive needs: No Hearing needs: No Vision needs: No Female Reproductive History Menstrual Date of last menstrual period: 02/11/23 Review of Systems Const All systems reviewed & are unremarkable except as noted in HPI and below Physical Exam Vital Signs: Last Vital Signs Temp 98.1 F 06/17/25 09:58 Pulse 52 06/17/25 09:58 BP 108/72 06/17/25 09:58 Pulse Ox 99 06/17/25 09:58 Oxygen Delivery Method Room Air 06/17/25 09:58 BMI result Body Mass Index 31.8 Assessment & Plan Assessment & Plan (1) Left shoulder pain: Code(s): M25.512 - Pain in left shoulder Qualifiers: Chronicity: acute Qualified Code(s): M25.512 - Pain in left shoulder Plan Most likely rotator cuff tear vs strain vs tendonitis Need her [facility] ER records Plan - The patient should obtain the x-ray results from the emergency room for further evaluation. - Follow-up with primary care physician to discuss the need for an MRI and further management of shoulder pain. - The referral to orthopedics for specialized care and management of the shoulder injury was placed yesterday. - Provide a sling to support the arm and alleviate pain during movement. - She has paperwork from the [employer] that she needs to have filled out for her. - was advised to go to work connection as it was a work related injury to have her paperwork filled out - she was given the information - needs to follow up with her PCP Coding Level of Care Code Est Pt Level 3 (72296) Diagnoses Acute pain of left shoulder M25.512 Chronicity: acute
--- OUTSIDE RECORDS SUMMARY | 2025-06-17 10:18 | XMS_ITS | Clinical Summary ---
Author Organization [facility] Address [address] [facility] [address] [place] [address] Phone Care Team Providers Care Drapery Head Former Name Role Phone Santy Flores MD Primary Care Provider [phone] Social History Tobacco Use Types Packs/Day Years Used Date Smoking Tobacco: Never Assessed Education Answer Date Recorded Are you interested in more education? Not on jeremy e 03/10/2023 Are you concerned about learning? Not on file 03/10/2023 No 03/10/2023 No 03/10/2023 Digital Access Answer Date Recorded No 04/08/2023 No 04/08/2023 No 04/08/2023 Reliable internet access at home? Not on file 04/08/2023 Device with a working camera? Not on file Comments Unknown Sex and Gender Information Value Date Recorded Sex Assigned at Not on file Legal Sex Female 1:18 PM EST Gender Identity Not on file Sexual Orientation Not on file Last Filed Vital Signs Vital Sign Reading Time Taken Comments Blood Pressure 108/70 12/15/2017 4:05 PM EST Pulse 64 12/15/2017 4:05 PM EST Temperature 36.8 C (98.3 F) 12/15/2017 4:05 PM EST Respiratory Rate 18 12/15/2017 4:05 PM EST Oxygen Saturation 98% 12/15/2017 4:05 PM EST Inhaled Oxygen Concentration - - Weight 72.6 kg (160 lb) 12/15/2017 1:30 PM EST Height - - Body Mass Index - - Plan of Treatment Health Maintenance Due Date Last Done Comments LIPID PANEL 1968 DEPRESSION SCREENING 1980 SMOKING Hx and SMOKELESS TOB ACCO SCREENING 1981 HEPATITIS C SCREENING 1986 HIV ONE-TIME SCREENING (18-6 5 YEARS) 1986 PAP SMEAR 1989 MAMMOGRAM 2008 COLOGUARD 2013 COLONOSCOPY 2013 COLORECTAL CANCER SCREENING 2013 FIT TEST 2013 FOBT 2013 SIGMOIDOSCOPY 2013 VIRTUAL COLONOSCOPY 2013 PNEUMOCOCCAL VACCINES (50+ y ears) (1 of 1 - PCV) 2018 ZOSTER VACCINES (1 of 2) 2018 COVID-19 VACCINE (1 - 2023-2 5 season) 2024 Adult Td,Tdap Booster 06/26/2025 06/26/2015 HEPATITIS A VACCINES Aged Out No long er eligible based on patient's age to complete this topic HIB VACCINES Aged Out No longer eligi ble based on patient's age to complete this topic MENINGOCOCCAL VACCINES (ACWY) Aged Out No longer eligible based on patient's age to complete this topic MENINGOCOCCAL VACCINES (B) Aged Out N o longer eligible based on patient's age to complete this topic Medical Devices Not on file Insurance [facility] Care Teams Drapery Head Former Relationship Specialty Start Date End Date Santy Flores MD [address] [place] [address] [address] [place] [address] PCP - General Internal Medicine 12/15/17 Additional Source Comments The information contained in this document represents components of the legal health record. It is not the complete legal health record.[facility]
--- OUTSIDE RECORDS SUMMARY | 2025-06-17 10:18 | XMS_ITS | Patient Health Record ---
Author Organization [facility] Address [address] [place] [id number] Care Team Providers Care Pie Baker Name Role Phone Sandra VEGA, Santy Primary Care Provider Sundar Sharma Unavailable [phone] Allergies Allergen (clinical drug ingredient) Drug/Non Drug Allergy documented on EMR Reaction Allergy Type Onset Date Status codeine Codeine Sulfate Unknown Drug Allergy A ctive sulfamethoxazole / trimethoprim Bactrim Unknown Drug Allergy Active Reason For Referral No Information Medications Medication SIG (Take, Route, Frequency, Duration) Notes Start Date End Date Status LORazepam 0.5 MG as directed Orally a s needed Active ProAir HFA 108 (90 Base) MCG/ACT 2 puffs as needed Inhalation prn Active Advil 200 MG 1 tablet with food o r milk as needed Orally PRN Active Fenofibrate 145 MG 1 tablet Orally Once a day Active Social History Tobacco Use: Social History Observation Description Date Details (start date - stop date) Former Smoker NA - NA Tobacco Use/Smoking Question Answer Notes Patient is a former smoker When did you stop smoking? quit 24 years ago How long has it been since you last smoked? > 10 years Alcohol Screen Question Answer Notes Did you have a drink contain ing alcohol in the past year? Yes How often did you have a dri nk containing alcohol in the past year? 4 or more times a week (4 points) How many drinks did you have on a typical day when you were drinking in the past year? 5 or 6 drinks (2 points) Points 6 Interpretation Positive Section Notes: Nonsmoker; usually 4-5 drink s per day Nonsmoker; usually 4-5 drink s per day Problems Problem Type SNOMED Code ICD Code Onset Dates Problem Status W/U Status Risk Notes Problem 397735444 Encounter for screening for malignant neoplasm of colon (Z12.11) Active confirmed Problem 552663188829228 Preprocedural examination (Z01.818) Active confirmed Problem 260669817 Gastroesophageal reflux disease, esophagitis presence not specified (K21.9) Active confirmed Problem 61344870 Constipation, unspecified constipation type (K59.00) Active confirmed Problem 05207412 Esophageal dysphagia (R13.10) Active confirmed Plan Of Treatment Pending Test Test Name Order Date GI BIOPSY 07/08/2019 Future Test Test Name Order Date COLONOSCOPY 03/14/2019 Insurance Providers Payer Name Payer Address Payer Phone Subscriber Number Group Number Insured Name Patient Relationship to Insured Coverage Start Date Coverage End Date [facility] [employer] [facility] [address] [address] [place], [place] [id number] [phone] [id number] ROSA LO Self - patient is the insured Medical (General) History Medical History History ICD Code Denies RI,DM,CVA,Lung disease,renal dise ase Hyperlipidemia GERD/Dysphagia--EGD by Dr. Hernandez suh toward the latter part of September,--report describes mid-esophageal rings, but biopsies from the esophagus were negative for eosinophilic esophagitis--she has been scheduled for esophageal motility studies in November 2017. The motility study was normal. Asthma Urinary incontinence Anxiety-lorazepam as needed Surgical History Surgery Date(Month/Year) cholecystectomy umbilical hernia repair Ectopic Knee and arm surgery as teenager
== END 2025-06-17 11:51 | disposition home or self-care (01) ==
PROVIDERS: PCP Internal Medicine; Visit Provider Physician Assistant Medical
DX: M25.512 Pain in left shoulder (principal)

== ENCOUNTER 2025-06-25 12:30 | Outpatient (REF) | payer OTHER, SELFPAY ==
--- NOTE | ~2025-06-25 | XR_ITS ---
EXAMINATION: XR SHOULDER, LEFT CLINICAL INFORMATION: M25.512 - Pain in left shoulder COMPARISON: Radiographs on October 23, 2018 TECHNIQUE: Three views of the left shoulder. FINDINGS: Normal alignment. Acromioclavicular and glenohumeral joint space are preserved. No displaced fracture. No abnormal soft tissue calcification. XR/XR shoulder LT min 2V IMPRESSION: No acute changes or significant degenerative changes. Electronically signed by: Danya Grant MD 06/25/2025 06:36 PM EDT
--- OUTSIDE RECORDS SUMMARY | 2025-06-25 13:10 | XMS_ITS | Clinical Summary ---
Author Organization [facility] Address [address] [address] Phone Care Team Providers Care Freezer Person Name Role Phone Santy Flores MD Primary Care Provider [phone] Social History Tobacco Use Types Packs/Day Years [...] Medical Devices Not on file Insurance [facility] Care Teams Freezer Person Relationship Specialty Start Date End Date Santy Flores MD [address] [place] [address] [address] [place] [address] PCP - General Internal Medicine 12/15/17 Additional Source Comments The information contained in this document represents components of the legal health record. It is not the complete legal health record.[facility]
--- OUTSIDE RECORDS SUMMARY | 2025-06-25 13:10 | XMS_ITS | Patient Health Record ---
Author Organization [facility] Address [address] [place] [phone] Care Team Providers Care Logistics Coordinator Name Role Phone Sandra VEGA, Santy Primary Care Provider Sundar Sharma Unavailable [phone] Allergies Allergen (clinical drug ingredient) Drug/Non Drug [...] Problem Status W/U Status Risk Notes Problem 761241001 Encounter for screening for malignant neoplasm of colon (Z12.11) Active confirmed Problem 258189751131861 Preprocedural examination (Z01.818) Active confirmed Problem 996953205 Gastroesophageal reflux disease, esophagitis presence not specified (K21.9) Active confirmed Problem 03828181 Constipation, unspecified constipation type (K59.00) Active confirmed Problem 65437321 Esophageal dysphagia (R13.10) Active confirmed Plan Of Treatment Pending Test Test Name Order Date GI BIOPSY 07/08/2019 Future Test Test Name Order Date COLONOSCOPY 03/14/2019 Insurance Providers Payer Name Payer Address Payer Phone Subscriber Number Group Number Insured Name Patient Relationship to Insured Coverage Start Date Coverage End Date [facility] [employer] [facility] [address] [address] [place], [place] [id number] [phone] [id number] ROSA LO Self - patient is the insured Medical (General) History Medical History History ICD Code Denies DE,DM,CVA,Lung disease,renal dise ase Hyperlipidemia GERD/Dysphagia--EGD by Dr. [...]
--- OUTSIDE RECORDS SUMMARY | 2025-06-25 13:10 | XMS_ITS | Clinical Summary ---
Author Organization [facility] Address [address] [place] [address] Phone Care Team Providers Care Senior Medical Billing Specialist Name Role Phone Physician, Pcp Unknown Primary Care Provider Edith vailable Allergies Active Allergy Reactions Criticality Noted Date Comments Cephalexin Rash 11/05/2023 Codeine Rash Low 11/05/2023 Sulfamethoxazole Dizziness High 11/05/2023 Trimethoprim Dizziness High 11/05/2023 Encounters Date Type Department Care Team Description 06/16/2025 9:40 AM EDT - 06/16/2025 10:52 AM EDT Emergency [facility] Emergency [address] [place] [address] Marilee Lira MD Injury of left shoulder, initial encounter (Primary Dx) Discharge Disposition: Home or Self Care from Last 3 Months Social History Tobacco Use Types Packs/Day Years Used Date Smoking Tobacco: Never Assessed Comments Unknown Sex and Gender Information Value Date Recorded Sex Assigned at Not on file Legal Sex Female 11:16 PM EST Gender Identity Not on file Sexual Orientation Not on file Obstetrics History Last Filed Vital Signs Vital Sign Reading Time Taken Comments Blood Pressure 157/77 06/16/2025 9:39 AM EDT Pulse 61 06/16/2025 9:39 AM EDT Temperature 36.7 C (98.1 F) 06/16/2025 9:39 AM EDT Respiratory Rate - - Oxygen Saturation - - Inhaled Oxygen Concentration - - Weight 77.1 kg (170 lb) 06/16/2025 9:39 AM EDT Height 157.5 cm (5' 2 ) 06/16/2025 9:39 AM EDT Body Mass Index 31.09 06/16/2025 9:39 AM EDT Plan of Treatment Health Maintenance Due Date Last Done Comments Breast Cancer Screening 1968 COVID-19 Vaccine (#1) 1973 Hepatitis B Vaccines (1 of 3 - 19+ 3-dose series) 1987 Cervical Cancer Screening: P ap Smear 1989 Pneumococcal Vaccine: 50+ Ye ars (1 of 1 - PCV) 2018 Zoster Vaccines (1 of 2) 2018 Colorectal Cancer Screening: Colonoscopy 10/16/2022 HIV Screening 10/16/2022 Hepatitis C Screening 10/16/2022 Social Influencers of Health Screening 10/16/2022 Depression Screening 11/13/2024 DTaP,Tdap,and Td Vaccines (2 - Td or Tdap) 06/26/2025 06/26/2015 Influenza Vaccine (#1) 2025 HIB Vaccines Aged Out No longer eligi [...] patient's age to complete this topic Meningococcal B Vaccine Aged Out No l onger eligible based on patient's age to complete this topic RSV Immunization Patients Un sulma 20 months Aged Out No longer eligible b ased on patient's age to complete this topic Varicella Vaccines Aged Out No longer eligible based on patient's age to complete this topic Procedures Procedure Name Priority Date/Time Associated Diagnosis Comments XR SHOULDER 2+ VIEWS LEFT STAT 06/16/2025 9:53 AM EDT from Last 3 Months Results * XR Shoulder 2+ Views Left (06/16/2025 9:53 AM EDT) Anatomical Region Laterality Modality Upper Extremities, Shoulder Left Radi ographic Imaging 06/16/2025 10:0 2 AM EDT Impressions 06/16/2025 10:03 AM EDT Impression: No significant abnormality identified in the left shoulder. No significant change. Telerad ANNALEE ([id number]) -------- FINAL REPORT -------- Dictated By: Radha Terry Dictated Date: 06/16/2025 10:02 ET Assigned Physician: Radha Terry Reviewed and Electronically Signed By: Radha Terry Signed Date: 06/16/2025 10:03 ET Workstation ID: [id number] Transcribed By: Self Edit Transcribed Date: 06/16/2025 10:02 ET Narrative 06/16/2025 10:03 AM EDT History: Left shoulder pain after lifting injury. Comparison: 12/15/16 Findings: 3 views of the left shoulder. The acromioclavicular and glenohumeral joints are well-maintained. No acute fracture or dislocation is seen. The overlying soft tissues are unremarkable. Procedure Note Radha Terry MD - 06/16/2025 History: Left shoulder pain after lifting injury. Comparison: 12/15/16 Findings: 3 views of the left shoulder. The acromioclavicular and glenohumeral joints are well-maintained. Noacute fracture or dislocation is seen. The overlying soft tissues areunremarkable. IMPRESSION: Impression: No significant abnormality identified in the left shoulder. No significantchange. Telerad ANNALEE ([id number]) -------- FINAL REPORT -------- Dictated By: Radha Terry Dictated Date: 06/16/2025 10:02 ET Assigned Physician: Radha Terry Reviewed and Electronically Signed By: Radha Terry Signed Date: 06/16/2025 10:03 ET Workstation ID: [id number] Transcribed By: Self Edit Transcribed Date: 06/16/2025 10:02 ET Marilee Lira MD IMG XR PROCEDURES Final Result from Last 3 Months Insurance WC GENERIC GENERIC Care Teams Senior Medical Billing Specialist Relationship Specialty Start Date End Date Physician, Pcp Unknown PCP - General 06/16/25
== END 2025-06-25 12:31 | disposition home or self-care (01) ==
LOC: HO.HOSX 12:30
DX: S46.009A Unspecified injury of muscle(s) and tendon(s) of the rotator cuff of unspecified shoulder, initial encounter (principal); S49.82XA Other specified injuries of left shoulder and upper arm, initial encounter; M25.512 Pain in left shoulder; X50.0XXA Overexertion from strenuous movement or load, initial encounter; Y92.69 Other specified industrial and construction area as the place of occurrence of the external cause; Y99.0 Civilian activity done for income or pay
CPT/HCPCS: 73030; 99212

== ENCOUNTER 2025-06-25 14:49 | Outpatient (AMB) | payer OTHER, SELFPAY ==
[2025-06-25 15:21] VITALS: BMI 31.7
--- NOTE | 2025-06-25 15:21 | MHC.OFFVIS ---
Vital Signs 06/25/25 15:21 Height 5 ft 1 in Weight 168 lb BMI 31.7 Intake Visit Reasons: ED/NewProb- Left Shoulder Injury, WC: 06/16/25 Intake Note: Dasia is a 54 year old right hand dominant female who presents today for evaluation of a work related injury to the left shoulder, DOI: 06/16/25. Patient is unsure on how the injury occurred but thinks it could have been while lifting or throwing a package. Patient states left shoulder pain radiates to her shoulder blade and her chest. She shares she cannot bring her arm above the head or extend it. Patient reports some numbness and tingling that radiates from the shoulder to the left ring and small fingers. She is currently taking Ibuprofen 800 mg with relief, however she tries not to use her arm. Denies previous injuries or surgeries to the left shoulder. Patient was originally evaluated at [facility]. Allergies cephalexin (Keflex) Allergy (Unknown, Verified 06/25/25 15:33) Unknown codeine Allergy (Unknown, Verified 06/25/25 15:33) Unknown Sulfa (Sulfonamide Antibiotics) Allergy (Unknown, Verified 06/25/25 15:33) Vertigo, rash HPI HPI ED/NewProb- Left Shoulder Injury, WC: 06/16/25: Details: Dasia is a 54 year old right hand dominant female who presents today for evaluation of a work related injury to the left shoulder, DOI: 06/16/25. Patient is unsure on how the injury occurred but thinks it could have been while lifting or throwing a package. Patient states left shoulder pain radiates to her shoulder blade and her chest. She shares she cannot bring her arm above the head or extend it. Patient reports some numbness and tingling that radiates from the shoulder to the left ring and small fingers. She is currently taking Ibuprofen 800 mg with relief, however she tries not to use her arm. Denies previous injuries or surgeries to the left shoulder. Patient was originally evaluated at [facility]. [facility] Medical History Physical exam Strain of right triceps muscle Anxiety Anxiety Surgical History History of ectopic History of elbow surgery H/O left knee surgery History of umbilical hernia repair Family History Father Medical history unknown Mother Medical history unknown Family/Other Hyperlipidemia Diabetes Social History (Updated 04/10/25 @ 15:33 by Jessica Mcclure MD) Housing: House Alcohol intake: current Alcohol intake frequency: a few times a week Alcohol type: wine Patient Tobacco Use Status: Former Tobacco user Tobacco use type: Cigarette e-Cigarette/Vaping Use: Never Used Second Hand Smoke Exposure: No service: No Current occupational status: employed 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 - [employer] Current occupational exposures/hazards: No Cognitive needs: No Hearing needs: No Vision needs: No Review of Systems Const All systems reviewed & are unremarkable except as noted in HPI and below Physical Exam Vital Signs: BMI result Body Mass Index 31.7 Extrem Other: Patient's left shoulder normal to inspection No erythema, ecchymosis, edema noted No lacerations, abrasions, open areas No evidence of infection Patient reports no tenderness to palpation of the left shoulder Patient is able to forward flex to approximately 110 degrees, reports pain beyond this Can externally rotate to approximately 70 degrees bilaterally 5/5 strength bilaterally empty can 4/5 strength belly press on the left, 5/5 on the right 4/5 strength lift-off on the left, 5/5 in the right Positive [place] in the left, negative on the right Distal sensation intact Capillary refill brisk Results Reviewed Results Reviewed: X-rays obtained in the office today and independently reviewed by me, Quirino Pierre PA-C, demonstrate no fracture or acute bony abnormality of the left shoulder. Assessment & Plan Assessment & Plan (1) Internal derangement of left shoulder: Code(s): M24.812 - Other specific joint derangements of left shoulder, not elsewhere classified Category: Medical Plan 1. Internal derangement of the left shoulder Patient is educated about this condition Patient is educated about the treatment options available, namely physical therapy, or further imaging via MRI I feel that physical therapy and MRI are reasonable to order at this time, as PT may be able to help with the recovery while MRI will reveal if there is any further underlying structural damage of the shoulder Patient understands this is amenable to this plan PT referral placed for range of motion, gentle strengthening of the left shoulder MRI ordered Patient will follow-up after MRI for results review and discussion of further treatment options if indicated, sooner with any acute concerns Orders: Orders MR shoulder LT wo con 06/25/25 S46.009A - Unspecified injury of muscle(s) and tendon(s) of the rotator cuff of unspecified shoulder, initial encounter PT Evaluation and Treatment 06/25/25 M24.812 - Other specific joint derangements of left shoulder, not elsewhere classified XR shoulder LT min 2V 06/25/25 M25.512 - Pain in left shoulder Coding Level of Care Code Est Pt Level 3 (03163) Diagnoses Internal derangement of left shoulder M24.812
== END 2025-06-25 15:54 | disposition home or self-care (01) ==
PROVIDERS: PCP Internal Medicine
DX: M24.812 Other specific joint derangements of left shoulder, not elsewhere classified (principal)
CPT/HCPCS: 99213

== ENCOUNTER → 2025-06-25 15:01 | Outpatient (BNV) | payer OTHER, SELFPAY | PROVIDERS: Visit Provider Radiology Body Imaging | DX: M25.512 Pain in left shoulder (principal) | CPT/HCPCS: 73030 ==

== ENCOUNTER 2025-07-03 11:02 | Outpatient (AMB) | payer BC, MEDICAID, SELFPAY ==
--- NOTE | 2025-07-03 11:04 | AM.OFFWIN_ITS ---
Intake Vital Signs 07/03/25 11:05 Height 5 ft 1 in Weight 168 lb BMI 31.7 BP 110/78 Blood Pressure Location Lt brachial Position Sitting Pulse 56 Pulse Source Pulse Oximeter Temp 97.6 F Temp Source Oral Pulse Oximetry (%) 98 Intake Visit Reasons: EP anxiety attacks daily Intake Note: pt is here for anxiety and panic attacks daily Patient Tobacco Use Status: Former Tobacco user Allergies cephalexin (Keflex) Allergy (Unknown, Verified 07/03/25 11:05) Unknown codeine Allergy (Unknown, Verified 07/03/25 11:05) Unknown Sulfa (Sulfonamide Antibiotics) Allergy (Unknown, Verified 07/03/25 11:05) Vertigo, rash Do you need a note to return to daycare/school/sports/work: Yes HPI HPI Comments History of Present Illness Details 54 y/o Female patient who presents to [facility] walk in clinic with c/o Anxiety and Panic attacks. Pt suffers from Generalized Anxiety and sees a therapist weekly. She is currently not on any Psych medications. Pt very emotinal crying during the visit. Denies SA or SI. [facility] Medical History Physical exam Strain of right triceps muscle Anxiety Anxiety Surgical History History of ectopic History of elbow surgery H/O left knee surgery History of umbilical hernia repair Family History Father Medical history unknown Mother Medical history unknown Family/Other Hyperlipidemia Diabetes Social History (Updated 04/10/25 @ 15:33 by Jessica Mcclure MD) Housing: House Alcohol intake: current Alcohol intake frequency: a few times a week Alcohol type: wine Patient Tobacco Use Status: Former Tobacco user Tobacco use type: Cigarette e-Cigarette/Vaping Use: Never Used Second Hand Smoke Exposure: No service: No Current occupational status: employed 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 [employer] Current occupational exposures/hazards: No Cognitive needs: No Hearing needs: No Vision needs: No Review of Systems Const All systems reviewed & are unremarkable except as noted in HPI and below Physical Exam Vital Signs: Last Vital Signs Temp 97.6 F 07/03/25 11:05 Pulse 56 07/03/25 11:05 BP 110/78 07/03/25 11:05 Pulse Ox 98 07/03/25 11:05 BMI result Body Mass Index 31.7 Const General: no acute distress and anxious Nutritional Appearance: overweight Orientation/consciousness: patient oriented x3 Neuro General: patient oriented x3, gait normal and moves all extremities Psych Speech and movement: Normal speech and movement present Affect: Labile affect present and Sad affect present Attitude: cooperative Thought process: Normal thought process present Thought content: suicidality, no homicidality and no delusions Insight: Good insight present (Psych) Judgement: Good judgement present (Psych) Assessment & Plan Assessment & Plan (1) JAN (generalized anxiety disorder): Code(s): F41.1 - Generalized anxiety disorder Plan: Will start Patient on low Dose Wellbutrin today. Went through all the side effects with patient and answered all her questions. Advised her to f/u with PCP in 4 weeks. Will have PCP adjust dosing at that time if necessary. Advised her to call her therapist for an immidiate visit. Medications: New bupropion HCl XL (Wellbutrin XL) 150 mg PO QAM 30 tabs 0RF F41.1 - Generalized anxiety disorder Coding Level of Care Code Est Pt Level 4 (88583) Diagnoses JAN (generalized anxiety disorder) F41.1 Time Spent (min) 20
[2025-07-03 11:05] VITALS: BP 110/78; PULSE 56; TEMP 36.4; O2SAT 98; BMI 31.7
--- OUTSIDE RECORDS SUMMARY | 2025-07-03 12:39 | XMS_ITS | Clinical Summary ---
Author Organization [facility] Address [address] [place] [address] Phone Care Team Providers Care Retail Performance Specialist Name Role Phone Physician, Pcp Unknown Primary Care Provider Edith vailable Allergies Active Allergy Reactions Criticality Noted Date Comments Cephalexin Rash 11/05/2023 Codeine Rash Low 11/05/2023 Sulfamethoxazole Dizziness High 11/05/2023 Trimethoprim Dizziness High 11/05/2023 Encounters Date Type Department Care Team Description 06/16/2025 9:40 AM EDT - 06/16/2025 10:52 AM EDT Emergency [facility] [address] [place] [address] Marilee Lira MD Injury of [...] left shoulder. No significant change. Telerad ANNALEE ([id number]) -------- FINAL REPORT -------- Dictated By: Radha Terry Dictated Date: 06/16/2025 10:02 ET Assigned Physician: Radha Terry Reviewed and Electronically Signed By: Radha Terry Signed Date: 06/16/2025 10:03 ET Workstation ID: [id number] Transcribed By: Self Edit Transcribed Date: 06/16/2025 [...] the left shoulder. No significantchange. Telerad ANNALEE ([id number]) -------- FINAL REPORT -------- Dictated By: Radha Terry Dictated Date: 06/16/2025 10:02 ET Assigned Physician: Radha Terry Reviewed and Electronically Signed By: Radha Terry Signed Date: 06/16/2025 10:03 ET Workstation ID: [id number] Transcribed By: Self Edit Transcribed Date: 06/16/2025 10:02 ET Marilee Lira MD IMG XR PROCEDURES Final Result from Last 3 Months Insurance WC GENERIC GENERIC Care Teams Retail Performance Specialist Relationship Specialty Start Date End Date Physician, Pcp Unknown PCP - General 06/16/25
--- OUTSIDE RECORDS SUMMARY | 2025-07-03 12:39 | XMS_ITS | Clinical Summary ---
Author Organization [facility] Address [address] [address] Phone Care Team Providers Care Club Concierge Name Role Phone Santy Flores MD Primary Care Provider Social History Tobacco Use Types Packs/Day Years [...] topic Medical Devices Not on file Insurance [facility] [employer] Care Teams Club Concierge Relationship Specialty Start Date End Date Santy Flores MD [address] [place] [address] [address] [place] [address] PCP - General Internal Medicine 12/15/17 Additional Source Comments The information contained in this document represents components of the legal health record. It is not the complete legal health record.[facility]
--- OUTSIDE RECORDS SUMMARY | 2025-07-03 12:39 | XMS_ITS | Patient Health Record ---
Author Organization [facility] Address [address] [place] [address] Care Team Providers Care Body Stylist Name Role Phone Sandra VEGA, Santy Primary Care Provider Sundar Sharma Unavailable [phone] Allergies Allergen (clinical drug ingredient) Drug/Non Drug [...] Problem Status W/U Status Risk Notes Problem [id number] Encounter for screening for malignant neoplasm of colon (Z12.11) Active confirmed Problem [id number] Preprocedural examination (Z01.818) Active confirmed Problem 949530169 Gastroesophageal reflux disease, esophagitis presence not specified (K21.9) Active confirmed Problem 46475945 Constipation, unspecified constipation type (K59.00) Active confirmed Problem 71917820 Esophageal dysphagia (R13.10) Active confirmed Plan Of Treatment Pending Test Test Name Order Date GI BIOPSY 07/08/2019 Future Test Test Name Order Date COLONOSCOPY 03/14/2019 Insurance Providers Payer Name Payer Address Payer Phone Subscriber Number Group Number Insured Name Patient Relationship to Insured Coverage Start Date Coverage End Date [facility] [employer] [facility] [address] [address] [place], [place] [id number] [phone] [id number] ROSA LO Self - patient is the insured Medical (General) History Medical History History ICD Code Denies [place],DM,CVA,Lung disease,renal dise ase Hyperlipidemia GERD/Dysphagia--EGD by Dr. [...]
== END 2025-07-03 12:26 | disposition home or self-care (01) ==
PROVIDERS: PCP Internal Medicine; Visit Provider Nurse Practitioner Family
DX: F41.1 Generalized anxiety disorder (principal)

== ENCOUNTER 2025-07-07 11:10 | Outpatient (AMB) | payer BC, MEDICAID, SELFPAY ==
[2025-07-07 11:21] VITALS: BP 116/70; PULSE 55; O2SAT 96; BMI 32.3
--- NOTE | 2025-07-07 11:21 | MHC.PC.OV ---
Vital Signs 07/07/25 11:21 Height 5 ft 1 in Weight 171 lb 2 oz BMI 32.3 BP 116/70 Blood Pressure Location Lt brachial Position Sitting Pulse 55 Pulse Oximetry (%) 96 Intake Visit Reasons: needs to discuss paperwork Bread Dumper Required: No Accompanied by: Self / Same As Patient Allergies cephalexin (Keflex) Allergy (Unknown, Verified 07/07/25 11:27) Unknown codeine Allergy (Unknown, Verified 07/07/25 11:27) Unknown Sulfa (Sulfonamide Antibiotics) Allergy (Unknown, Verified 07/07/25 11:27) Vertigo, rash Medication List - Last Reconciled 07/07/25 by Jessica Mcclure MD acyclovir 5% 1 appl topical 6XD albuterol sulfate 90 mcg/actuation 2 puffs inhalation Q4-6H PRN 30 days apremilast (Otezla) 30 mg PO BID bupropion HCl XL (Wellbutrin XL) 150 mg PO QAM epinephrine (EpiPen 2-Gabino) 0.3 mg (0.3 mL) IM ONCE PRN fenofibrate nanocrystallized 145 mg PO DAILY ibuprofen 800 mg PO TID lorazepam 0.5 mg (1/2 x 1 mg) PO BID PRN Tobacco use date assessed: 07/07/25 Dental Screening Dental Screen Date: 12/18/24 Did you have a dental visit in the last 12 months?: No Did you have a dental problem in the last 6 months where you did not have access to dental care?: No Was dental information given to patient?: Patient has dentist HPI HPI Comments History of Present Illness Details The patient is a 54-year-old female presenting with depression with anxiety. She was recently prescribed bupropion but has not started it yet. She also uses lorazepam as needed for anxiety, being aware of its potential for addiction, dementia, and sedation. Her depression and anxiety are exacerbated by her work environment, necessitating intermittent FMLA. Her PHQ-9 score is 14, indicating moderate depression, but she reports no suicidal thoughts. The patient also has a history of elevated triglycerides for which she takes fenofibrate. Additionally, she uses an inhaler as needed and is on Otezla for plaque psoriasis. She has sustained a left shoulder injury, for which an orthopedic consultation has been conducted. An MRI has been ordered, and she is scheduled to begin physical therapy next month. [facility] Medical History Physical exam Strain of right triceps muscle Anxiety Anxiety Surgical History History of ectopic History of elbow surgery H/O left knee surgery History of umbilical hernia repair Family History Father Medical history unknown Mother Medical history unknown Family/Other Hyperlipidemia Diabetes Social History Housing: House Alcohol intake: current Alcohol intake frequency: a few times a week Alcohol type: wine Patient Tobacco Use Status: Former Tobacco user Tobacco use type: Cigarette e-Cigarette/Vaping Use: Never Used Second Hand Smoke Exposure: No service: No Current occupational status: employed 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 1. Little interest or pleasure in doing things: more than half the days 2. Feeling down, depressed, or hopeless: more than half the days 3. Trouble falling or staying asleep, or sleeping too much: more than half the days 4. Feeling tired or having little energy: more than half the days 5. Poor appetite or overeating: more than half the days 6. Feeling bad about yourself - or that you are a failure or have let yourself or your family down: several days 7. Trouble concentrating on things, such as reading the newspaper or watching television: nearly every day 8. Moving or speaking so slowly that other people could have noticed. Or the opposite - being so fidgety or restless that you have been moving around a lot more than usual: not at all 9. Thoughts that you would be better off or of hurting yourself in some way: not at all Total score: 14 Depression Screening Interpretation: Positive (no suicidal thoughts) Depression Screening Follow-up: Existing condition, New Medication prescribed, Community Mental Health Worker F/U and Follow-up Visit Requested Depression Screening Done: Yes 48573 - PHQ-9 Billing: Yes Source: Developed by Drs. Sundar Abbasi, Bran Bower and colleagues, with an educational madison from [employer]. Thrive Questionnaire Date Thrive assessed: 04/03/25 I am a: Patient What is your living situation today?: I have a steady place to live Within the past 12 months, did the food you bought not last and you didn't have the money to get more?: Sometimes True Within the past 12 months, did you worry whether your food would run out before you got money to buy more?: Sometimes True Do you have trouble paying for medicines?: No Do you have trouble getting transportation to medical appointments?: No Do you have trouble paying your heating and electricity bill?: Yes Do you have trouble taking care of your child, family member or friend?: No Do you have trouble with day-to-day activities such as bathing, preparing meals, shopping, managing finances, etc.?: Yes Are you currently unemployed and looking for a job?: No Are you interested in more education?: Yes Currently or been in a relationship where the following occur: No concerns reported THRIVE Score: 3 AUDIT C Alcohol Use Questionnaire (AUDIT-C) 1. How often do you have a drink containing alcohol?: 2-3 times a week 2. How many drinks containing alcohol do you have on a typical day when you are drinking?: 3 or 4 3. How often do you have six or more drinks on one occasion?: Never Total Score: 4 JAN-7 AMB Questionnaire JAN-7 Date JAN - 7 assessed: 12/18/24 Feeling nervous, anxious, or on edge: 3 = Nearly every day Not being able to stop or control worryin = Nearly every day Worrying too much about different things: 3 = Nearly every day Trouble relaxin = Nearly every day Being so restless that it is hard to sit still: 0 = Not at all Becoming easily annoyed or irritable: 1 = Several days Feeling afraid as if something awful might happen: 0 = Not at all Total JAN-7 score (0-4 normal; 5-9 mild; 10-14 moderate; 15-21 severe): 13 Source: Developed by Latia Phillips Kurt Kroenke and colleagues, with an educational madison from [employer]. JAN-7 Assessment Billing JAN-7 Assessment Tool: JAN-7 Assessment 05203 Review of Systems Const All systems reviewed & are unremarkable except as noted in HPI and below Card Denies chest pain at rest, Denies chest pain with activity, Denies edema, Denies irregular heart rhythm, Denies claudication, Denies dyspnea, Denies dyspnea on exertion, Denies orthopnea, Denies paroxysmal nocturnal dyspnea and Denies slow heart rate Resp Denies cough, Denies dyspnea and Denies dyspnea on exertion Denies urinary incontinence, Denies urinary hesitancy and Denies urinary urgency Musc Denies atrophy, Denies deformity and Denies limited range of motion Physical exam (Primary Care) BMI result Body Mass Index 32.3 Tobacco/Smoking Status: Tobacco use Status Tobacco use date assessed 12/25/24 04/10/25 15:23 Patient Tobacco Use Status Former Tobacco user 07/03/25 11:06 Tobacco use type Cigarette 04/10/25 15:33 e-Cigarette/Vaping Use Never Used 04/10/25 15:33 Depression Screening Interpretation: Positive (no suicidal thoughts) Depression Screening Follow-up: Existing condition, New Medication prescribed, Community Mental Health Worker F/U and Follow-up Visit Requested Thrive Assessment: Date of Thrive Assessment Date Thrive assessed 04/03/25 04/10/25 15:23 Currently or been in a relationship where the following occur: No concerns reported Resp Effort & Inspection: normal respiratory effort Auscultation: clear to auscultation bilaterally Cardio Jugular venous distension: no JVD Rate: regular rate Rhythm: regular rhythm Heart sounds: S1 normal heart sound present and S2 normal heart sound present Extrem Left upper extremity: shoulder/upper arm Details: tenderness and abnormal ROM Details: pain with active ROM Details: in ABduction and in extension Coding Level of Care Code Est Pt Level 4 (38947) Complex EM visit Add On G2211 Diagnoses Moderate recurrent major depression F33.1 JAN (generalized anxiety disorder) F41.1 Hyperlipidemia E78.5 Internal derangement of left shoulder M24.812 Scalp psoriasis L40.9 Additional Codes PHQ-9 - 38031 - PHQ-9 Billing: Yes ([id number]) JAN-7 Assessment Billing - JAN-7 Assessment Tool: JAN-7 Assessment 41393 ([id number]) Time Spent (min) 22 Assessment & Plan Assessment & Plan (1) Moderate recurrent major depression: Code(s): F33.1 - Major depressive disorder, recurrent, moderate Category: Medical (2) JAN (generalized anxiety disorder): Code(s): F41.1 - Generalized anxiety disorder Category: Medical (3) Hyperlipidemia: Code(s): E78.5 - Hyperlipidemia, unspecified Category: Medical (4) Internal derangement of left shoulder: Code(s): M24.812 - Other specific joint derangements of left shoulder, not elsewhere classified Category: Medical (5) Scalp psoriasis: Code(s): L40.9 - Psoriasis, unspecified Category: Medical Plan The patient is advised to start bupropion for her depression with anxiety, as previously prescribed. She should continue using lorazepam as needed, with caution regarding its addictive potential and side effects. For her elevated triglycerides, she should maintain her current regimen of fenofibrate. Her plaque psoriasis management with Otezla should continue as prescribed. Regarding her left shoulder injury, she is to follow up with the family resource specialist for MRI results and commence physical therapy as scheduled.
--- OUTSIDE RECORDS SUMMARY | 2025-07-07 12:32 | XMS_ITS | Clinical Summary ---
Author Organization [facility] Address [address] [address] Phone Care Team Providers Care Hog Trader Name Role Phone Santy Flores MD Primary [...] VACCINE (1 - 2023-2 5 season) 2024 INFLUENZA VACCINE (#1) 2025 Adult Td,Tdap Booster 06/26/2025 06/26/2015 HEPATITIS A [...] topic Medical Devices Not on file Insurance [employer] C[employer] Care Teams Hog Trader Relationship Specialty Start Date End Date Santy Flores MD [address] [place] [address] [address] [place] [address] PCP - General Internal Medicine 12/15/17 Additional Source Comments The information contained in this document represents components of the legal health record. It is not the complete legal health record.[facility]
--- OUTSIDE RECORDS SUMMARY | 2025-07-07 12:32 | XMS_ITS | Clinical Summary ---
Author Organization [facility] Address [address] [place] [address] Phone Care Team Providers Care Sample Carrier Name Role Phone Physician, Pcp Unknown Primary Care Provider Edith vailable Allergies Active Allergy Reactions Criticality Noted Date Comments Cephalexin Rash 11/05/2023 Codeine Rash Low 11/05/2023 Sulfamethoxazole Dizziness High 11/05/2023 Trimethoprim Dizziness High 11/05/2023 Encounters Date Type Department Care Team Description 06/16/2025 9:40 AM EDT - 06/16/2025 10:52 AM EDT Emergency [facility] Emergency [address] [place] [address] Marilee Lira MD Injury of [...] left shoulder. No significant change. Telerad ANNALEE ([id number]) -------- FINAL REPORT -------- Dictated By: Radha Terry Dictated Date: 06/16/2025 10:02 ET Assigned Physician: Radha Terry Reviewed and Electronically Signed By: Radha Terry Signed Date: 06/16/2025 10:03 ET Workstation ID: [id number] Transcribed By: Self Edit Transcribed Date: 06/16/2025 [...] the left shoulder. No significantchange. Telerad ANNALEE ([id number]) -------- FINAL REPORT -------- Dictated By: Radha Terry Dictated Date: 06/16/2025 10:02 ET Assigned Physician: Radha Terry Reviewed and Electronically Signed By: Radha Terry Signed Date: 06/16/2025 10:03 ET Workstation ID: [id number] Transcribed By: Self Edit Transcribed Date: 06/16/2025 10:02 ET Marilee Lira MD IMG XR PROCEDURES Final Result from Last 3 Months Insurance WC GENERIC GENERIC Care Teams Sample Carrier Relationship Specialty Start Date End Date Physician, Pcp Unknown PCP - General 06/16/25
--- OUTSIDE RECORDS SUMMARY | 2025-07-07 12:32 | XMS_ITS | Patient Health Record ---
Author Organization [facility] Address [address] [place] [address] Care Team Providers Care Acute Care Certified Nursing Assistant Name Role Phone Sandra VEGA, Santy Primary Care Provider Sundar Sharma Unavailable [phone] Allergies Allergen (clinical drug ingredient) Drug/Non Drug [...] Problem Status W/U Status Risk Notes Problem 938900880 Encounter for screening for malignant neoplasm of colon (Z12.11) Active confirmed Problem 621628285725014 Preprocedural examination (Z01.818) Active confirmed Problem 221953779 Gastroesophageal reflux disease, esophagitis presence not specified (K21.9) Active confirmed Problem 47057412 Constipation, unspecified constipation type (K59.00) Active confirmed Problem 83742226 Esophageal dysphagia (R13.10) Active confirmed Plan Of Treatment Pending Test Test Name Order Date GI BIOPSY 07/08/2019 Future Test Test Name Order Date COLONOSCOPY 03/14/2019 Insurance Providers Payer Name Payer Address Payer Phone Subscriber Number Group Number Insured Name Patient Relationship to Insured Coverage Start Date Coverage End Date [facility] [address] [address] [place], [place] [id number] [phone] [id number] ROSA LO Self - patient is the insured Medical (General) History Medical History History ICD Code Denies [place],DM,CVA,Lung disease,renal dise ase Hyperlipidemia GERD/Dysphagia--EGD by Dr. [...]
== END 2025-07-07 11:38 | disposition home or self-care (01) ==
PROVIDERS: PCP Internal Medicine; Visit Provider Internal Medicine
DX: F33.1 Major depressive disorder, recurrent, moderate (principal); F41.1 Generalized anxiety disorder; E78.5 Hyperlipidemia, unspecified; M24.812 Other specific joint derangements of left shoulder, not elsewhere classified; L40.9 Psoriasis, unspecified

== ENCOUNTER → 2025-07-07 11:10 | Outpatient (BNVA) | payer BC, MEDICAID, OTHER, SELFPAY | PROVIDERS: PCP Internal Medicine; Visit Provider Internal Medicine | DX: F33.1 Major depressive disorder, recurrent, moderate (principal); F41.1 Generalized anxiety disorder; E78.5 Hyperlipidemia, unspecified; M25.812 Other specified joint disorders, left shoulder; L40.9 Psoriasis, unspecified | CPT/HCPCS: 96127 ==

== ENCOUNTER 2025-07-25 11:04 | Outpatient (REF) | payer OTHER, BC, MEDICAID, SELFPAY ==
--- NOTE | ~2025-07-25 | MM_ITS ---
EXAMINATION: MM SCREENING DIGITAL BREAST TOMOSYNTHESIS, BILATERAL CLINICAL INFORMATION: Screening. Asymptomatic. COMPARISON: Mammography: Comparison is made with available priors TECHNIQUE: Digital breast mammography with tomosynthesis is performed in both the craniocaudal and mediolateral oblique views along with computer-aided detection (CAD). FINDINGS: The breasts are heterogeneously dense, which may obscure small masses (ACR BI-RADS breast composition Category c). There are no significant masses, abnormal calcifications, or other abnormalities. MM/MM tomosynthesis screening BI IMPRESSION: No mammographic evidence of malignancy. ASSESSMENT: BI-RADS BI-RADS 1 - Negative RECOMMENDATION: Routine annual mammography screening. 1 year F/U This examination should not preclude the clinical evaluation of a suspicious palpable abnormality. This patient's information was entered into a reminder system with a target due date for their next mammogram. Electronically signed by: Jackie Gonzalez DO 07/29/2025 02:19 PM EDT
--- OUTSIDE RECORDS SUMMARY | 2025-07-25 12:55 | XMS_ITS | Clinical Summary ---
Author Organization [facility] Address [address] [address] Phone Care Team Providers Care Terra Cotta Mason Name Role Phone Santy Flores MD Primary Care Provider [phone] Social History Tobacco Use Types Packs/Day Years [...] 2018 ZOSTER VACCINES (1 of 2) 2018 INFLUENZA VACCINE (#1) 2025 Adult Td,Tdap Booster 06/26/2025 06/26/2015 COVID-19 VACCINE (2023-2 5 season) 2025 HEPATITIS A VACCINES Aged Out No long [...] on file Insurance [employer] C[employer]US Care Teams Terra Cotta Mason Relationship Specialty Start Date End Date Santy Flores MD [address] [place] [address] [address] [place] [address] PCP - General Internal Medicine 12/15/17 Additional Source Comments The information contained in this document represents components of the legal health record. It is not the complete legal health record.[facility]
--- OUTSIDE RECORDS SUMMARY | 2025-07-25 12:55 | XMS_ITS | Patient Health Record ---
Author Organization [facility] Address [address] [place] [address] Care Team Providers Care Business Proposal Rep Name Role Phone Sandra VEGA, Santy Primary Care Provider Sundar Sharma Unavailable [phone] Allergies Allergen (clinical drug ingredient) Drug/Non Drug [...] Problem Status W/U Status Risk Notes Problem 793346930 Encounter for screening for malignant neoplasm of colon (Z12.11) Active confirmed Problem 164501403748459 Preprocedural examination (Z01.818) Active confirmed Problem 779355020 Gastroesophageal reflux disease, esophagitis presence not specified (K21.9) Active confirmed Problem 58507068 Constipation, unspecified constipation type (K59.00) Active confirmed Problem 95138144 Esophageal dysphagia (R13.10) Active confirmed Plan Of Treatment Pending Test Test Name Order Date GI BIOPSY 07/08/2019 Future Test Test Name Order Date COLONOSCOPY 03/14/2019 Insurance Providers Payer Name Payer Address Payer Phone Subscriber Number Group Number Insured Name Patient Relationship to Insured Coverage Start Date Coverage End Date [facility] [employer] [facility] [address] [address] [place], [place] [id number] [phone] [id number] ROSA LO Self - patient is the insured Medical (General) History Medical History History ICD Code Denies [place],DM,CVA,Lung disease,renal dise ase Hyperlipidemia GERD/Dysphagia--EGD by Dr. [...]
--- OUTSIDE RECORDS SUMMARY | 2025-07-25 12:55 | XMS_ITS | Clinical Summary ---
Author Organization [facility] Address [address] [place] [address] Phone Care Team Providers Care Branch Officer Name Role Phone Physician, Pcp Unknown Primary Care Provider Edith vailable Allergies Active Allergy Reactions Criticality Noted Date Comments Cephalexin Rash 11/05/2023 Codeine Rash Low 11/05/2023 Sulfamethoxazole Dizziness High 11/05/2023 Trimethoprim Dizziness High 11/05/2023 Encounters Date Type Department Care Team Description 06/16/2025 9:40 AM EDT - 06/16/2025 10:52 AM EDT Emergency [facility] Emergency [address] [place] [address] Marilee Lira MD Injury of [...] left shoulder. No significant change. Telerad ANNALEE ([id number]) -------- FINAL REPORT -------- Dictated By: Radha Terry Dictated Date: 06/16/2025 10:02 ET Assigned Physician: Radha Terry Reviewed and Electronically Signed By: Radha Terry Signed Date: 06/16/2025 10:03 ET Workstation ID: [id number] Transcribed By: Self Edit Transcribed Date: 06/16/2025 [...] the left shoulder. No significantchange. Telerad ANNALEE ([id number]) -------- FINAL REPORT -------- Dictated By: Radha Terry Dictated Date: 06/16/2025 10:02 ET Assigned Physician: Radha Terry Reviewed and Electronically Signed By: Radha Terry Signed Date: 06/16/2025 10:03 ET Workstation ID: [id number] Transcribed By: Self Edit Transcribed Date: 06/16/2025 10:02 ET Marilee Lira MD IMG XR PROCEDURES Final Result from Last 3 Months Insurance WC GENERIC GENERIC Care Teams Branch Officer Relationship Specialty Start Date End Date Physician, Pcp Unknown PCP - General 06/16/25
[2025-07-25 14:22] LABS: MANUAL DIFF FLAG NO
[2025-07-25 14:26] LABS: Hematocrit 35.0 % (37.0-47.0); Hemoglobin 11.7 g/dl (12.0-16.0); Imm Gran Abs Auto 0.01 X10*3/uL (0.00-0.03); Imm Gran Pct Auto 0.3 % (0.0-0.4); Lymphocytes Absolute Auto 1.1 X10*3/uL (1.2-4.9); Mean Corpuscular HGB Conc 33.4 g/dl (31.0-35.0); Mean Corpuscular Hemoglobin 29.9 pg (27.0-33.0); Mean Corpuscular Volume 89.5 fL (80.0-98.0); NRBC Abs Auto 0.000 X10*3/uL (0.0-0.012); NRBC Pct Auto 0.0 /100WBC (0.0-0.2); Platelet Count 239 X10*3/uL (160-400); Red Blood Count 3.91 X10*6/uL (4.20-5.50); White Blood Count 3.6 X10*3/uL (4.8-10.8)
[2025-07-25 14:53] LABS: Anion Gap 11 (12-20); Blood Urea Nitrogen 19 mg/dL (9-16); Calcium 9.6 mg/dL (8.4-10.2); Carbon Dioxide 25 mmol/L (22-29); Chloride 109 mmol/L (96-108); Estimated Glomerular Filt Rate > 60; Potassium 3.6 mmol/L (3.3-5.1); Sodium 141 mmol/L (135-145)
== END 2025-07-25 11:05 | disposition home or self-care (01) ==
LOC: HO.MAMMO 11:04
PROVIDERS: Nurse Practitioner Family; PCP Internal Medicine; Visit Provider Internal Medicine
DX: R53.83 Other fatigue (principal); D72.819 Decreased white blood cell count, unspecified; Z12.31 Encounter for screening mammogram for malignant neoplasm of breast
CPT/HCPCS: 36415; 77063; 77067; 80048; 82306; 84443; 85025

== ENCOUNTER → 2025-07-25 11:15 | Outpatient (BNV) | payer BC, MEDICAID, SELFPAY | PROVIDERS: PCP Internal Medicine; Visit Provider Internal Medicine | DX: Z12.31 Encounter for screening mammogram for malignant neoplasm of breast (principal) | CPT/HCPCS: 77063; 77067 ==

== ENCOUNTER 2025-08-08 17:40 | Outpatient (REF) | payer OTHER, BC, MEDICAID, SELFPAY ==
--- NOTE | ~2025-08-08 | MR_ITS ---
CLINICAL HISTORY: S46.009A - Unspecified injury of muscle(s) and tendon(s) of the rotator ... MR left shoulder without gadolinium Comparison: None provided Findings: Normal alignment without acute fracture. No marrow infiltration. Rqie-hc-xlanluvs edematous osseous and neighboring soft tissue changes (possibly due to contusion) involving 1 of the right upper hemithoracic ribs. Further evaluation with chest radiography recommended. Mild nonspecific focal soft tissue edematous changes/ contusion in the posterior subcutaneous fat at level of the scapular spine. A few small subchondral cysts along with grade 1 sprain of the superior joint capsule/AC ligament at level of the AC joint. No glenohumeral joint effusion. Minimal subchondral/subacromial bursitis. Mild degenerative irregularity of the humeral cartilage. Mild subscapularis and juvh-rf-fsmalcbn supraspinatus tendinosis. No rotator cuff tear. Mild fatty streaking of the rotator cuff muscles. Minimally complex (predominantly longitudinal split tear) tear of the intra-articular long head of biceps tendon best seen on the sagittal images. Questionable anterior superior labral tear. If clinically indicated further evaluation width MR arthrogram may be of value. IMPRESSION: Minimally complex (predominantly longitudinal split tear) tear of the intra-articular long head of biceps tendon best seen on the sagittal images. Questionable anterior superior labral tear. If clinically indicated further evaluation width MR arthrogram may be of value. Zuke-bm-uohftxzn edematous osseous and neighboring soft tissue changes (possibly due to contusion) involving 1 of the right upper hemithoracic ribs. Further evaluation with chest radiography recommended. A few small subchondral cysts along with grade 1 sprain of the superior joint capsule/AC ligament at level of the AC joint. Mild subscapularis and vzcg-xz-bzizjqkp supraspinatus tendinosis. No rotator cuff tear. This document has been electronically signed by: Ivette Odom MD on 08/11/2025 13:34:42
--- OUTSIDE RECORDS SUMMARY | 2025-08-08 17:43 | XMS_ITS | Clinical Summary ---
Author Organization [facility] Address [address] [address] Phone Care Team Providers Care Returned Telephone Equipment Appraiser Name Role Phone Santy Flores MD Primary Care Provider [phone] Social History Tobacco Use Types Packs/Day Years [...] on file Insurance [employer] C[employer] Care Teams Returned Telephone Equipment Appraiser Relationship Specialty Start Date End Date Santy Flores MD [address] [place] [address] [address] [place] [address] PCP - General Internal Medicine 12/15/17 Additional Source Comments The information contained in this document represents components of the legal health record. It is not the complete legal health record.[facility]
--- OUTSIDE RECORDS SUMMARY | 2025-08-08 17:43 | XMS_ITS | Patient Health Record ---
Author Organization [facility] Address [address] [place] [address] Care Team Providers Care Displayer Name Role Phone Sandra VEGA, Santy Primary Care Provider Sundar Sharma Unavailable [phone] Allergies Allergen (clinical drug ingredient) Drug/Non Drug [...] Problem Status W/U Status Risk Notes Problem 619325230 Encounter for screening for malignant neoplasm of colon (Z12.11) Active confirmed Problem 231547413464887 Preprocedural examination (Z01.818) Active confirmed Problem 717414330 Gastroesophageal reflux disease, esophagitis presence not specified (K21.9) Active confirmed Problem 07060636 Constipation, unspecified constipation type (K59.00) Active confirmed Problem 58483041 Esophageal dysphagia (R13.10) Active confirmed Plan Of Treatment Pending Test Test Name Order Date GI BIOPSY 07/08/2019 Future Test Test Name Order Date COLONOSCOPY 03/14/2019 Insurance Providers Payer Name Payer Address Payer Phone Subscriber Number Group Number Insured Name Patient Relationship to Insured Coverage Start Date Coverage End Date [facility] [address] [address] [place], [place] [phone] [id number] ROSA LO Self - patient is the insured Medical (General) History Medical History History ICD Code Denies NE,DM,CVA,Lung disease,renal dise ase Hyperlipidemia GERD/Dysphagia--EGD by Dr. [...]
--- OUTSIDE RECORDS SUMMARY | 2025-08-08 17:43 | XMS_ITS | Clinical Summary ---
Author Organization [facility] Address [address] [place] [address] Phone Care Team Providers Care Injection Molder Name Role Phone Physician, Pcp Unknown Primary Care Provider Edith vailable Allergies Active Allergy Reactions Criticality Noted Date Comments Cephalexin Rash 11/05/2023 Codeine Rash Low 11/05/2023 Sulfamethoxazole Dizziness High 11/05/2023 Trimethoprim Dizziness High 11/05/2023 Encounters Date Type Department Care Team Description 06/16/2025 9:40 AM EDT - 06/16/2025 10:52 AM EDT Emergency [facility] Emergency [address] [place] [address] Marilee Lira MD Injury of [...] left shoulder. No significant change. Telerad ANNALEE ([id number]) -------- FINAL REPORT -------- Dictated By: Radha Terry Dictated Date: 06/16/2025 10:02 ET Assigned Physician: Radha Terry Reviewed and Electronically Signed By: Radha Terry Signed Date: 06/16/2025 10:03 ET Workstation ID: [id number] Transcribed By: Self Edit Transcribed Date: 06/16/2025 [...] the left shoulder. No significantchange. Telerad ANNALEE ([id number]) -------- FINAL REPORT -------- Dictated By: Radha Terry Dictated Date: 06/16/2025 10:02 ET Assigned Physician: Radha Terry Reviewed and Electronically Signed By: Radha Terry Signed Date: 06/16/2025 10:03 ET Workstation ID: [id number] Transcribed By: Self Edit Transcribed Date: 06/16/2025 10:02 ET Marilee Lira MD IMG XR PROCEDURES Final Result from Last 3 Months Insurance WC GENERIC GENERIC Care Teams Injection Molder Relationship Specialty Start Date End Date Physician, Pcp Unknown PCP - General 06/16/25
== END 2025-08-08 17:41 | disposition home or self-care (01) ==
LOC: HO.MRI 17:40
PROVIDERS: PCP Internal Medicine
DX: S46.002A Unspecified injury of muscle(s) and tendon(s) of the rotator cuff of left shoulder, initial encounter (principal)
CPT/HCPCS: 73221

== ENCOUNTER → 2025-08-08 17:50 | Outpatient (BNV) | payer OTHER, SELFPAY | PROVIDERS: PCP Internal Medicine; Visit Provider Radiology Diagnostic Radiology | DX: S46.002A Unspecified injury of muscle(s) and tendon(s) of the rotator cuff of left shoulder, initial encounter (principal); M67.814 Other specified disorders of tendon, left shoulder; M85.612 Other cyst of bone, left shoulder | CPT/HCPCS: 73221 ==

== ENCOUNTER 2025-09-09 15:01 | Outpatient (AMB) | payer OTHER, SELFPAY ==
[2025-09-09 15:05] VITALS: BMI 29.6
--- NOTE | 2025-09-09 15:05 | A.OFFVIS_ITS ---
Vital Signs 09/09/25 15:05 Height 5 ft 2 in Weight 162 lb BMI 29.6 Intake Visit Reasons: OV: Left shoulder MRI review Intake Note: Dasia is a 54 year old right hand dominant female who presents today for follow up of her Left Shoulder Internal Derangement and MRI review. Patient reports she continues goint to PT, one visit left. She is taking OTC pain meds with some re lief. IMPRESSION 08/11/25: Minimally complex (predominantly longitudinal split tear) tear of the intra-articular long head of biceps tendon best seen on the sagittal images. Questionable anterior superior labral tear. If clinically indicated further evaluation width MR arthrogram may be of value. Gisf-br-fkjypjbw edematous osseous and neighboring soft tissue changes (possibly due to contusion) involving 1 of the right upper hemithoracic ribs. Further evaluation with chest radiography recommended. A few small subchondral cysts along with grade 1 sprain of the superior joint capsule/AC ligament at level of the AC joint. Mild subscapularis and wsca-xh-xbhkqkfr supraspinatus tendinosis. No rotator cuff tear. Allergies cephalexin (Keflex) Allergy (Unknown, Verified 09/09/25 15:08) Unknown codeine Allergy (Unknown, Verified 09/09/25 15:08) Unknown Sulfa (Sulfonamide Antibiotics) Allergy (Unknown, Verified 09/09/25 15:08) Vertigo, rash HPI HPI OV: Left shoulder MRI review: Details: Dasia is a 54 year old right hand dominant female who presents today for follow up of her Left Shoulder Internal Derangement and MRI review. Patient reports she continues goint to PT, one visit left. She is taking OTC pain meds with some relief. IMPRESSION 08/11/25: Minimally complex (predominantly longitudinal split tear) tear of the intra-articular long head of biceps tendon best seen on the sagittal images. Questionable anterior superior labral tear. If clinically indicated further evaluation width MR arthrogram may be of value. Pxbq-jt-ixjhswrr edematous osseous and neighboring soft tissue changes (possibly due to contusion) involving 1 of the right upper hemithoracic ribs. Further evaluation with chest radiography recommended. A few small subchondral cysts along with grade 1 sprain of the superior joint capsule/AC ligament at level of the AC joint. Mild subscapularis and hpuy-tv-eavffrta supraspinatus tendinosis. No rotator cuff tear. [facility] Medical History Physical exam Strain of right triceps muscle Anxiety Anxiety Surgical History History of ectopic History of elbow surgery H/O left knee surgery History of umbilical hernia repair Family History Father Medical history unknown Mother Medical history unknown Family/Other Hyperlipidemia Diabetes Social History Household Members: Children Housing: House Are you a primary urgent care physician assistant to a significant other at home: No Do you presently have visiting nurse or other home services: No Alcohol intake: current Alcohol intake frequency: a few times a week Alcohol type: wine Patient Tobacco Use Status: Former Tobacco user Tobacco use type: Cigarette e-Cigarette/Vaping Use: Never Used Second Hand Smoke Exposure: No service: No Current occupational status: employed 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 - [employer] Current occupational exposures/hazards: No Cognitive needs: No Hearing needs: No Vision needs: No Review of Systems Const All systems reviewed & are unremarkable except as noted in HPI and below Physical Exam Vital Signs: BMI result Body Mass Index 29.6 Extrem Other: Patient's left shoulder normal to inspection No erythema, ecchymosis, edema noted No lacerations, abrasions, open areas No evidence of infection Patient reports no tenderness to palpation of the left shoulder Patient is able to forward flex to approximately 110 degrees, reports pain beyond this Can externally rotate to approximately 70 degrees bilaterally 5/5 strength bilaterally empty can 4/5 strength belly press on the left, 5/5 on the right 4/5 strength lift-off on the left, 5/5 in the right Positive [place] in the left, negative on the right Distal sensation intact Capillary refill brisk Office Procedures Joint Inj/Aspir; Non-Pain Clin Joint Injection/Drain Prep: site was prepped using aseptic technique and injection warnings given Procedure: The patient tolerated the procedure well, but had some pain with the injection and there was some relief with the local anesthesia Shoulders, Hips, Knees, Shoulder Injection Large joint 31235: Left Shoulder Coding Procedure code (CPT) selection complete Results Reviewed Results Reviewed: IMPRESSION: Minimally complex (predominantly longitudinal split tear) tear of the intra-articular long head of biceps tendon best seen on the sagittal images. Questionable anterior superior labral tear. If clinically indicated further evaluation width MR arthrogram may be of value. Ilzt-kk-fibepbil edematous osseous and neighboring soft tissue changes (possibly due to contusion) involving 1 of the right upper hemithoracic ribs. Further evaluation with chest radiography recommended. A few small subchondral cysts along with grade 1 sprain of the superior joint capsule/AC ligament at level of the AC joint. Mild subscapularis and egyo-ya-kakwmvfj supraspinatus tendinosis. No rotator cuff tear. This document has been electronically signed by: Ivette Odom MD Assessment & Plan Assessment & Plan (1) Biceps tendon tear: Code(s): S46.219A - Strain of muscle, fascia and tendon of other parts of biceps, unspecified arm, initial encounter Category: Medical Plan 1. Proximal biceps tendon tear of left shoulder Patient is about this condition Patient is educated about the typical treatment course At this time, patient would like to proceed with steroid injection The risks and benefits of a steroid injection including but not limited to risk of damage to blood vessels, nerves, tendons, infection, skin bleaching, failure to improve symptoms, increased pain, and possible need for further injections or other intervention were discussed with the patient and the patient wishes to proceed with the steroid injection. Once consent was obtained, I aseptically prepped the area over the posterior soft space just below the acromion of the left shoulder. I then injected the area over the lateral epicondyle with a combination of 80 mg of dexamethasone and 8 mL of 1% lidocaine. The patient tolerated the procedure well with no complications. Patient should continue with PT If the patient continues to experience symptoms over the following few weeks or months, they can make an appointment to return and discuss alternative treatment measures Follow-up prn Orders: Orders PT Evaluation and Treatment Today S46.219A - Strain of muscle, fascia and tendon of other parts of biceps, unspecified arm, initial encounter Coding Level of Care Code Est Pt Level 3 (56585) Diagnoses Biceps tendon tear S46.219A CPT Codes Shoulders, Hips, Knees, - Shoulder Injection Large joint 43651: Left Shoulder ([id number])
--- OUTSIDE RECORDS SUMMARY | 2025-09-09 19:26 | XMS_ITS | Data Portability ---
Author Organization [facility]NALEE Rosario [facility], [address] Address [address] [place] [address] Care Team Providers Care Theology Teacher Name Role Phone SUGAR HAMMOND Primary Care Provider [phone] Assessment No assessment recorded. Plan of Treatment Reminders Order Date Submit Date Provider Last Modified By Organization Details Last Modified Time Details Appointments None recorded. Lab urinalysis, dipstick 2022 023 [email or web address] [address], [address] [place], [address], 3 16:21:03 Referral None recorded. Procedures None recorded. Surgeries None recorded. Imaging None recorded. Medication Orders amoxicillin 875 mg-potassiu m clavulanate 125 mg tablet 2023 024 [facility] #[id number], [address] [place], [address], 4 11:04:48 Medrol (Gabino) 4 mg tablets in a dose pack 2022 024 [facility] #[id number], [address] [place], [address], 4 10:24:26 Patient TargetsNo targets recorded. Patient Instructions Encounter Date Encounter Id Patient Instructions Last Modified By Organization Details Last Modified Time 06/22/2023 [id number] getting back to normal after low back pain: care instructions [email or web address] Not available 06/22/2023 16:21:00 sciatica: exercises [email or web address] Not available 06/22/2023 16:21:00 sciatica education Not available 06/22/2023 16:21:01 sciatica: care instructions [email or web address] Not available 06/22/2023 16:21:00 Take the medrol as prescribed. Do not take ibuprofen or related medication while taking the medrol. Tylenol may be taken with the medrol if needed. See printed instructions and work note. Keep your appointment as scheduled with [facility]. Seek Emergency Medical evaluation for any worsening symptoms, particularly for worsening pain, bowel or bladder dysfunction, numbness in genital area or weakness of the lower extremities. [email or web address] Not available 06/22/2023 16:22:49 01/07/2024 [id number] You have a middl e ear infection [...] Analyte Normal = light yellow Not Available [address] [place], [address], 06/22/2023 15:23:51 06/22/20 23 06/22/2023 urina lysis , dipst ick Unknown Analyte Normal = clear Not Available [address] [place], [address], 06/22/2023 15:23:51 06/22/2006/22/2023 urina lysis , dipst ick Unknown Analyte Normal = negati ve Not Available [address] [place], [address], 06/22/2023 15:23:51 06/22/20 23 06/22/2023 urina lysis , dipst ick Unknown Analyte Normal = Negati ve Not Available [address] [place], [address], 06/22/2023 15:23:51 06/22/20 23 06/22/2023 urina lysis , dipst ick Unknown Analyte Normal = Negati ve Not Available [address] [place], [address], 06/22/2023 15:23:51 06/22/20 23 06/22/2023 urina lysis , dipst ick Unknown Analyte Normal = 1.010, 1.015, 1.020 Not Available [address] [place], [address], 06/22/2023 15:23:51 06/22/20 23 06/22/2023 urina lysis , dipst ick Unknown Analyte Normal = Negati ve Not Available [address] [place], [address], 06/22/2023 15:23:51 06/22/20 23 06/22/2023 urina lysis , dipst ick Unknown Analyte Normal = 6.5, 7.0, 7.5, 8.0 Not Available [address] [place], [address], 06/22/2023 15:23:51 06/22/20 23 06/22/2023 urina lysis , dipst ick Unknown Analyte Normal = Negati ve Not Available [address] [place], [address], 06/22/2023 15:23:51 06/22/20 23 06/22/2023 urina lysis , dipst ick Unknown Analyte Normal = 0.2, 1.0 Not Available [address] [place], [address], 06/22/2023 15:23:51 06/22/20 23 06/22/2023 urina lysis , dipst ick Unknown Analyte Normal = Negati ve Not Available [address] [place], [address], 06/22/2023 15:23:51 06/22/20 23 06/22/2023 urina lysis , dipst ick Unknown Analyte Normal = Negati ve Not Available [address] [place], [address], 06/22/2023 15:23:51 06/22/20 23 06/22/2023 urina lysis , dipst ick Unknown Analyte Yellow Not Available [facility] [address] [place], [address], 06/22/2023 15:23:51 06/22/20 23 06/22/2023 urina lysis , dipst ick Unknown Analyte Clear Not Available [facility] [address] [place], [address], 06/22/2023 15:23:51 06/22/20 23 06/22/2023 urina lysis , dipst ick Unknown Analyte Negati ve Not Available [address] [place], [address], 06/22/2023 15:23:51 06/22/20 23 06/22/2023 urina lysis , dipst ick Unknown Analyte Negati ve Not Available [address] [place], [address], 06/22/2023 15:23:51 06/22/20 23 06/22/2023 urina lysis , dipst ick Unknown Analyte Negati ve Not Available [address] [place], [address], 06/22/2023 15:23:51 06/22/20 23 06/22/2023 urina lysis , dipst ick Unknown Analyte 1.025 Not Available [facility] [address] [place], [address], 06/22/2023 15:23:51 06/22/20 23 06/22/2023 urina lysis , dipst ick Unknown Analyte Negati ve Not Available [address] [place], [address], 06/22/2023 15:23:51 06/22/20 23 06/22/2023 urina lysis , dipst ick Unknown Analyte 5.5 Not Available [facility] [address] [place], [address], 06/22/2023 15:23:51 06/22/20 23 06/22/2023 urina lysis , dipst ick Unknown Analyte Negati ve Not Available [address] [place], [address], 06/22/2023 15:23:51 06/22/20 23 06/22/2023 urina lysis , dipst ick Unknown Analyte 0.2 E.U./d L Not Available [address] [place], [address], 06/22/2023 15:23:51 06/22/20 23 06/22/2023 urina lysis , dipst ick Unknown Analyte Negati ve Not Available [address] [place], [address], 06/22/2023 15:23:51 06/22/20 23 06/22/2023 urina lysis , dipst ick Unknown Analyte Negati ve Not Available [address] [place], [address], 06/22/2023 15:23:51 Result Notes None recorded. 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 Procedures Surgical History Date Name Laterality Status Provider Name and Address Organization Details Recorded Time cholecystectomy completed NEHA SHAWZ PA - [facility] 06/22/2023 15:24:58 hernia repair completed NEHA SHAWZ PA - [facility] 06/22/2023 15:25:02 Knee arthroscopy/surgery completed NEHA SHAWZ PA - [facility] 06/22/2023 15:25:05 removal of product of conception of ectopic completed NEHA VANG PA - [facility] 06/22/2023 15:25:18 Imaging Results None recorded. Procedure Notes None recorded. Medical Equipment None Reported. Allergies Allergen ID Allergen Name Allergen Category Reaction Reaction Severity Criticality Documentation Date Start Date Code Code System Note Provider Name and Address Organization Details Recorded Time 919179 codeine medicatio n rash Not available Not available 06/22/2023 2670 RxNorm NEHA MIRACLENACZ null, PA - [facility] 15:20:33 356048 Keflex medicatio n Not available Not available Not available 06/22/202375943 7 RxNorm unkno wn NEHA MIRACLENACZ null, PA - [facility] 15:20:45 393060 Substance with sulfonami de structure and antibacte rial mechanism of action (substanc e) medicatio n rash Not available Not available 06/22/2023 29378 8003 SNOMED verti go NEHA TAJ barnes, PA - [facility] 15:21:09 014571 gabapenti n medicatio n Not available Not available Not available 06/22/2023 98462 RxNorm unkno wn NEHA VANG null, PA [...] completed Not Available Not Available Not Available Medrol (Gabino) 4 mg tablets in a dose pack Take 1 dose pk by oral route. 01/07 completed Not Available Not Available Not [...] blood by Pulse oximetry Heart rate Systolic And Diastolic Provider Name and Address Organization Details Last Updated DateTime 4 157.48 cm 28.3 kg/m2 44831.8 2 g 18 /min 8 97.7 [degF] 99 % 99 % 72 /min 121/78 mm[Hg] Jeanine Messina PA - [facility] 4 10:27:47 Date Recorded Body temperature Pain severity - 0-10 verbal numeric rating [Score] - Reported Oxygen saturation Oxygen saturation in Arterial blood by Pulse oximetry Heart rate Respiratory rate Body height Body mass index (BMI) Body weight Systolic And Diastolic Provider Name and Address Organization Details Last Updated DateTime 3 97.9 [degF] 7 97 % 97 % 69 /min 16 /min 157.48 cm 32.2 kg/m2 99172.2 6 g 113/78 mm[Hg] NEHA RAUSCHZAIRE PA [employer] [facility] 3 15:28:11 Social History Question Answer Notes LastModified by [email or web address] Details LastModified Time Tobacco Smoking Status Former Smoker quit 27 years old NEHA TAJ barnes PA - [facility] 06/22/2023 15:24:43 [...] Functional Status Question Answer Note LastModified by [email or web address] Details LastModified Time Do you use any [...] Diagnosis SNOMED-CT Code Diagnosis ICD10 Code Diagnosis IMO Codes Diagnosis Note [id number] [address] [place] [address] 04/21/2019 08:49:30 04/21/2019 09:47:46 [id number] [address] [place] [address] 11/09/2019 15:30:09 11/09/2019 16:35:26 [id number] [address] [place] [address] 06/30/2019 11:03:03 06/30/2019 11:44:11 [id number] [address] [address] 03/11/2022 12:07:57 03/11/2022 14:04:46 [id number] [address] [place] [address] 12/21/2017 10:05:23 12/21/2017 11:51:42 [id number] [address] [place] [address] 04/09/2022 15:15:03 04/09/2022 17:42:00 [id number] Bettina Benavides MD [address] [place] [address] 06/22/2023 15:06:12 06/22/2023 16:29:49 Acute back pain with sciatica 424016307 M54.41 [id number] ANNALEE Rosas [address] [facility] [address] [facility] [place] [address] 01/07/2024 10:11:45 01/07/2024 11:06:41 Acute right otitis media 249665634 H66.91 Health Concerns Section Related Observation LastModified by Organization Detai ls LastModified Time None Recorded Concern Status LastModified by Organization Details LastModified Time None Recorded Advance Directives Directive None Recorded Payers Insurance Date Sequence Insurance Name Policy Number Policy Gillespie Covered Member ID Gillespie Member ID Guarantor Name 01/07/2024 2 [place] Dasia Carballo [id number] Dasia Carblalo 01/07/2024 1 [place] [employer] [id number] Dasia Carballo [id number] Dasia Carballo Notes Date Note Type Note Provider Name and Address Organization Details Recorded Time 06/22/20 23 text/htm l Back Pain/Injury UCReported by PatientHPIFor quality, patient reportsdull(aching.). For aggravating factors, patient reportsbending over/standing up,movement/positioning,prolo nged sitting or lying, andwalking. For source of patient information, patient reportsinformation obtained from patientandpatient arrived at urgent care ambulatory. For duration, patient reports5 days. For context, patient reportsatraumaticandprior back problems. For alleviating factors, patient reportsrest. For prior imaging, patient reportsnone. For location, (radiates to right buttock.). For associated symptoms, (no numbness or weakness of the extremities. no bowel or bladder dysfunction. no saddle anesthesia. no dysuria or fever.). For previous injury, (intermittent low back pain for several months. worse for 5 days, now with radiation to right buttock.).52 year old female with hx cervical radiculopathy, [...] Bettina Benavides MD [address] [place], [address], PA - [facility] 06/25/2023 16:42:23 01/07/20 24 text/htm l Ear Pain Brief HPIReported by PatientHPIFor location, patient reportspain radiates to jawbut reportsright. For quality, patient reportsdeep painbut reportsno itchingandno discharge from the ears(pain in mouth and teeth which radiates to jaw, recent dental work). For context, patient reportsdental problemsbut reportsno recent swimming,no immunocompromise, andno recent airplane travel. For associated symptoms, patient reportsno cough,no jaw popping or clicking,no decreased appetite,no discharge from ear,no nasal congestion, andno nasal discharge(did have mild cold about a week ago which is now resolved). ANNALEE Hawthorne [address] [place], [address], PA - [facility] 01/07/2024 11:05:54 OBGyn Episode No OBEpisode recorded.
--- OUTSIDE RECORDS SUMMARY | 2025-09-09 19:26 | XMS_ITS | Clinical Summary ---
Author Organization [facility] Address [address] [address] Phone Care Team Providers Care Director Learning And Development Name Role Phone Santy Flores MD Primary Care Provider [phone] Social History Tobacco Use Types Packs/Day Years [...] Adult Td,Tdap Booster 06/26/2025 06/26/2015 COVID-19 VACCINE (1 - 2024-2 6 season) 2025 RSV VACCINE (1 - 1-dose 75+ series) 2043 HEPATITIS A VACCINES Aged Out No long [...] topic Medical Devices Not on file Insurance [facility] Care Teams Director Learning And Development Relationship Specialty Start Date End Date Santy Flores MD [address] [place] [address] [address] [place] [address] PCP - General Internal Medicine 12/15/17 Additional Source Comments The information contained in this document represents components of the legal health record. It is not the complete legal health record.[facility]
--- OUTSIDE RECORDS SUMMARY | 2025-09-09 19:26 | XMS_ITS | Clinical Summary ---
Author Organization [facility] Address [address] [place] [address] Phone Care Team Providers Care Asp Developer Name Role Phone Physician, Pcp Unknown Primary Care Provider Edith vailable Allergies Active Allergy Reactions Criticality Noted Date Comments Cephalexin Rash 11/05/2023 Codeine Rash Low 11/05/2023 Sulfamethoxazole Dizziness High 11/05/2023 Trimethoprim Dizziness High 11/05/2023 Encounters Date Type Department Care Team Description 06/16/2025 9:40 AM EDT - 06/16/2025 10:[address] [facility] [address] [place] [address] Marilee Lira MD Injury of [...] Last Done Comments Breast Cancer Screening 1968 Colorectal Cancer Screening: Colonoscopy 1968 Hepatitis B Vaccines (1 of 3 - 19+ 3-dose series) 1987 Cervical Cancer Screening: P ap Smear 1989 Pneumococcal Vaccine: 50+ Ye ars (1 of 1 - PCV) 2018 Zoster Vaccines (1 of 2) 2018 HIV Screening 10/16/2022 Hepatitis C Screening 10/16/2022 Social Influencers of Health Screening 10/16/2022 Depression Screening 11/13/2024 DTaP,Tdap,and Td Vaccines (2 - Td or Tdap) 06/26/2025 06/26/2015 COVID-19 Vaccine (1 - 2023-2 5 season) 2025 Influenza Vaccine (#1) 2025 RSV Immunization Adult Patie nts (1 - 1-dose 75+ series) 2043 HIB Vaccines Aged Out No longer eligi [...] the left shoulder. No significant change. Telerad PA ([id number]) -------- FINAL REPORT -------- Dictated By: Radha Terry Dictated Date: 06/16/2025 10:02 ET Assigned Physician: Radha Terry Reviewed and Electronically Signed By: Radha Terry Signed Date: 06/16/2025 10:03 ET Workstation ID: [id number] Transcribed By: Self Edit Transcribed Date: 06/16/2025 [...] in the left shoulder. No significantchange. Telerad PA ([id number]) -------- FINAL REPORT -------- Dictated By: Radha Terry Dictated Date: 06/16/2025 10:02 ET Assigned Physician: Radha Terry Reviewed and Electronically Signed By: Radha Terry Signed Date: 06/16/2025 10:03 ET Workstation ID: [id number] Transcribed By: Self Edit Transcribed Date: 06/16/2025 10:02 ET Marilee Lira MD IMG XR PROCEDURES Final Result from Last 3 Months Insurance WC GENERIC GENERIC Care Teams Asp Developer Relationship Specialty Start Date End Date Physician, Pcp Unknown PCP - General 06/16/25
--- OUTSIDE RECORDS SUMMARY | 2025-09-09 19:26 | XMS_ITS | Patient Health Record ---
Author Organization [facility] Address [address] [place] [address] Care Team Providers Care Storm Chaser Name Role Phone Sandra VEGA, Santy Primary Care Provider Sundar Sharma Unavailable [phone] Allergies Allergen (clinical drug ingredient) Drug/Non Drug [...] Problem Status W/U Status Risk Notes Problem Screening for malignant neoplasm of colon (300499332) Encounter for screening for malignant neoplasm of colon (Z12.11) Active confirmed Problem Preprocedural examination (925854712806856) Preprocedural examination (Z01.818) Active confirmed Problem Gastroesophageal reflux disease (714288815) Gastroesophageal reflux disease, esophagitis presence not specified (K21.9) Active confirmed Problem Constipation (03889472) Constipation, unspecified constipation type (K59.00) Active confirmed Problem Esophageal dysphagia (34095734) Esophageal dysphagia (R13.10) Active confirmed Plan Of Treatment Pending Test Test Name Order Date GI BIOPSY 07/08/2019 Future Test Test Name Order Date COLONOSCOPY 03/14/2019 Insurance Providers Payer Name Payer Address Payer Phone Subscriber Number Group Number Insured Name Patient Relationship to Insured Coverage Start Date Coverage End Date [facility] [address] [address] [place], [place] [id number] ROSA LO Self - patient is the insured Medical (General) History Medical History History ICD Code Denies ME,DM,CVA,Lung disease,renal dise ase Hyperlipidemia GERD/Dysphagia--EGD by Dr. [...]
== END 2025-09-09 15:56 | disposition home or self-care (01) ==
LOC: HO.HOS 15:02
PROVIDERS: PCP Internal Medicine
DX: S46.219A Strain of muscle, fascia and tendon of other parts of biceps, unspecified arm, initial encounter (principal)
CPT/HCPCS: 20610; 99213

== ENCOUNTER → 2025-09-09 15:01 | Outpatient (BNVA) | payer OTHER, BC, MEDICAID, SELFPAY | PROVIDERS: PCP Internal Medicine | DX: Z71.2 Person consulting for explanation of examination or test findings (principal); S46.212A Strain of muscle, fascia and tendon of other parts of biceps, left arm, initial encounter | CPT/HCPCS: 20610; 99212; J0665; J1100; J2003 ==

== ENCOUNTER 2025-09-26 08:54 | Outpatient (AMB) | payer BC, MEDICAID, SELFPAY ==
--- NOTE | 2025-09-26 09:05 | A.OFFPC_ITS ---
Vital Signs 09/26/25 09:06 Height 5 ft 2 in Weight 165 lb BMI 30.2 BP 110/70 Blood Pressure Location Lt brachial Position Sitting Pulse 50 Pulse Source Pulse Oximeter Temp 97.1 F Temp Source Temporal Artery Scan Pulse Oximetry (%) 98 Oxygen Delivery Method Room Air Intake Visit Reasons: Annual Physical Intake Note: Patient is here today for a physical. Wire Preparation Machine Tender Required: No Bank Sales And Service Manager: Not Required per policy Accompanied by: Self / Same As Patient Allergies cephalexin (Keflex) Allergy (Unknown, Verified 09/26/25 09:06) Unknown codeine Allergy (Unknown, Verified 09/26/25 09:06) Unknown Sulfa (Sulfonamide Antibiotics) Allergy (Unknown, Verified 09/26/25 09:06) Vertigo, rash sulfamethoxazole (From Bactrim) Allergy (Verified 09/26/25 09:06) Rash trimethoprim (From Bactrim) Allergy (Verified 09/26/25 09:06) Rash Medication List - Last Reconciled 09/26/25 by Elodia Gatica MD acyclovir 5% 1 appl topical 6XD albuterol sulfate 90 mcg/actuation 2 puffs inhalation Q4-6H PRN 30 days apremilast (Otezla) 30 mg PO BID cholecalciferol (vitamin D3) 50 mcg PO DAILY epinephrine (EpiPen 2-Gabino) 0.3 mg (0.3 mL) IM ONCE PRN fenofibrate nanocrystallized 145 mg PO DAILY ibuprofen 800 mg PO TID lorazepam 0.5 mg (1/2 x 1 mg) PO BID PRN polyethylene glycol 3350 17 grams PO DAILY ramelteon (Rozerem) 8 mg PO BEDTIME Tobacco use date assessed: 09/26/25 Dental Screening Dental Screen Date: 12/18/24 HPI HPI Comments History of Present Illness Details Patient is a 54-year-old female with anxiety, depression, elevated triglycerides, and psoriasis presenting for annual physical. Patient reports difficulty staying asleep, getting only about 3 hours of total sleep per night. She attributes this to her brain not being able to shut down. She tried melatonin without success and uses lorazepam which helps her fall asleep but not stay asleep. A prior prescription for trazodone was filled but never taken due to general fear of medications. Reports history alcohol use but has been abstinent for over 7 weeks. Does not smoke or consume caffeine. Reports regimen and work schedule, lack of formal exercise generalized body aches. Her medication list includes albuterol as needed for cough when sick, Otezla daily, vitamin D3, an EpiPen as needed, and ibuprofen as needed for neck and shoulder pain. She reports poor adherence to fenofibrate due to forgetting. She never started bupropion due to concerns about weight gain and an aversion to medications. PENDING SALE TO [facility] Medical History Physical exam Strain of right triceps muscle Anxiety Anxiety Surgical History History of ectopic History of elbow surgery H/O left knee surgery History of umbilical hernia repair Family History Father Medical history unknown Mother Medical history unknown Family/Other Hyperlipidemia Diabetes Social History Household Members: Children Housing: House Are you a primary vp care management to a significant other at home: No Do you presently have visiting nurse or other home services: No Alcohol intake: current Alcohol intake frequency: a few times a week Alcohol type: wine Patient Tobacco Use Status: Former Tobacco user Tobacco use type: Cigarette e-Cigarette/Vaping Use: Never Used Second Hand Smoke Exposure: No service: No Current occupational status: employed 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 - [employer] Current occupational exposures/hazards: No Cognitive needs: No Hearing needs: No Vision needs: No Questionnaire Thrive Questionnaire Date Thrive assessed: 04/03/25 I am a: Patient What is your living situation today?: I have a steady place to live Within the past 12 months, did the food you bought not last and you didn't have the money to get more?: Sometimes True Within the past 12 months, did you worry whether your food would run out before you got money to buy more?: Sometimes True Do you have trouble paying for medicines?: No Do you have trouble getting transportation to medical appointments?: No Do you have trouble paying your heating and electricity bill?: Yes Do you have trouble taking care of your child, family member or friend?: No Do you have trouble with day-to-day activities such as bathing, preparing meals, shopping, managing finances, etc.?: Yes Are you currently unemployed and looking for a job?: No Are you interested in more education?: Yes Currently or been in a relationship where the following occur: No concerns reported THRIVE Score: 3 JAN-7 AMB Questionnaire JAN-7 Date JAN - 7 assessed: 12/18/24 Source: Developed by Drs. Sundar Abbasi, Latia Kwon, Bran Manzanares and colleagues, with an educational madison from [employer]. Physical exam (Primary Care) Vital Signs: Last Vital Signs Temp 97.1 F 09/26/25 09:06 Pulse 50 09/26/25 09:06 BP 110/70 09/26/25 09:06 Pulse Ox 98 09/26/25 09:06 Oxygen Delivery Method Room Air 09/26/25 09:06 General: Well-appearing, alert, oriented ?3, in no acute distress. HEENT: Normocephalic, atraumatic, PERRLA, EOMI, no scleral icterus. External ears normal, tympanic membranes intact bilaterally, no erythema or effusion. Nares patent, normal mucosa pink, no discharge. No oral lesions, or pharyngeal erythema. Neck Supple. Cardiovascular: RRR, S1-S2 appreciated, no murmurs, rubs or gallops. Respiratory: Lungs clear to auscultation bilaterally, no wheezes, rales or rhonchi. Abdomen: Soft, nontender, nondistended. Normoactive bowel sounds. MSK: Normal range of motion in all extremities, no joint swelling or deformity. Neurologic: Alert and oriented X3, cranial nerves II?XII grossly intact, sens ation and strength intact in bilateral lower and upper extremities. BMI result Body Mass Index 30.2 Tobacco/Smoking Status: Tobacco use Status Tobacco use date assessed 09/26/25 09/26/25 09:15 Patient Tobacco Use Status Former Tobacco user 09/26/25 09:15 Tobacco use type Cigarette 09/26/25 09:15 e-Cigarette/Vaping Use Never Used 09/26/25 09:15 Thrive Assessment: Date of Thrive Assessment Date Thrive assessed 04/03/25 09/26/25 09:15 Currently or been in a relationship where the following occur: No concerns reported Coding Level of Care Code Est Pt Prev Care 40-64y(54811) Diagnoses Annual physical exam Z00.00 Insomnia, unspecified type G47.00 Insomnia type: unspecified Constipation, unspecified constipation type K59.00 Constipation type: unspecified constipation type Encounter for medication review Z79.899 Assessment & Plan Assessment & Plan (1) Annual physical exam: Code(s): Z00.00 - Encounter for general adult medical examination without abnormal findings Plan: Patient presenting for annual physical Mammogram: 07/2025 - BI-RADS 1 - negative Colonoscopy: Reports she had it done when she was 48 yo at [facility], to obtain records Pap smear: She states she has an appointment on 10/14/2025 at [facility] HIV negative (06/2025) Hep C negative (10/2023) Immunization: Tdap 2014 (due - given in clinic today), patient declines flu vaccine today (2) Insomnia: Code(s): G47.00 - Insomnia, unspecified Category: Medical Qualifiers: Insomnia type: unspecified Qualified Code(s): G47.00 - Insomnia, unspecified Plan: Patient reports chronic insomnia for which she has tried melatonin without much help. She currently uses lorazepam as needed at bedtime however it only helps h er fall asleep but not stay asleep. Patient does not prefer to take medications. Declines trazodone at this time. We discussed extensive sleep hygiene measures including establishing a fixed bedtime, ceasing all daytime naps, and avoiding stimulants near bedtime. Encouraged initiating a consistent exercise routine, starting with 10-15 minutes daily. Due to aversion to other medications, Patient offered Ramealton 8 mg to take half an hour before bedtime. Patient is agreeable. Prescription sent. (3) Constipation: Code(s): K59.00 - Constipation, unspecified Category: Medical Qualifiers: Constipation type: unspecified constipation type Qualified Code(s): K59.00 - Constipation, unspecified Plan: Prescription for MiraLax sent (4) Encounter for medication review: Code(s): Z79.899 - Other long term care pharmacist (current) drug therapy Plan: Bupropion was discontinued from her chart as she never initiated therapy, and not interested to do Discussed nonadherence with fenofibrate and suggested using a pill box to improve memory and consistency. Medications: New polyethylene glycol 3350 17 grams PO DAILY 30 ea 0RF constipation ramelteon (Rozerem) 8 mg PO BEDTIME 30 tabs 0RF insomnia Refilled lorazepam 0.5 mg (1/2 x 1 mg) PO BID PRN 60 tabs 3RF anxiety Discontinued bupropion HCl XL Discontinued Reason: Patient no longer taking 150 mg PO QAM 90 days 90 tabs 1RF F41.1 - Generalized anxiety disorder
[2025-09-26 09:06] VITALS: BP 110/70; PULSE 50; TEMP 36.2; O2SAT 98; BMI 30.2
--- OUTSIDE RECORDS SUMMARY | 2025-09-26 09:19 | XMS_ITS | Clinical Summary ---
Author Organization [facility] Address [address] [place] [address] Phone Care Team Providers Care Security Systems Technician Name Role Phone Physician, Pcp Unknown Primary Care Provider Edith vailable Allergies Active Allergy Reactions Criticality Noted Date Comments Cephalexin Rash 11/05/2023 Codeine Rash Low 11/05/2023 Sulfamethoxazole Dizziness High 11/05/2023 Trimethoprim Dizziness High 11/05/2023 Social History Tobacco Use Types Packs/Day Years [...] Tdap) 06/26/2025 06/26/2015 COVID-19 Vaccine (1 - 2024-2 6 season) 2025 Influenza Vaccine (#1) 2025 RSV [...] on patient's age to complete this topic Insurance GENERIC GENERIC Care Teams Security Systems Technician Relationship Specialty Start Date End Date Physician, Pcp Unknown PCP - General 06/16/25
--- OUTSIDE RECORDS SUMMARY | 2025-09-26 09:19 | XMS_ITS | Clinical Summary ---
Author Organization [facility] Address [address] [place] [address] Phone Care Team Providers Care Comic Book Artist Name Role Phone Santy Flores MD Primary Care Provider [phone] Social History Tobacco Use Types Packs/Day Years [...] patient's age to complete this topic IPV VACCINES Aged Out No longer eligi ble based on patient's age to complete this topic MENINGOCOCCAL VACCINES (ACWY) Aged Out No longer eligible based on patient's age to complete this topic MENINGOCOCCAL VACCINES (B) Aged Out N o longer eligible based on patient's age to complete this topic Medical Devices Not on file Insurance Care Teams Comic Book Artist Relationship Specialty Start Date End Date Santy Flores MD [address] [place] [address] [address] [place] [address] PCP - General Internal Medicine 12/15/17 Additional Source Comments The information contained in this document represents components of the legal health record. It is not the complete legal health record.[facility]
--- OUTSIDE RECORDS SUMMARY | 2025-09-26 09:19 | XMS_ITS | Patient Health Record ---
Author Organization [facility] Address [address] [place] [id number] Care Team Providers Care Bid Analyst Name Role Phone Sandra VEGA, Santy Primary Care Provider Sundar Sharma Unavailable [phone] Allergies Allergen (clinical drug ingredient) Drug/Non Drug [...] Problem Screening for malignant neoplasm of colon (694522143) Encounter for screening for malignant neoplasm of colon (Z12.11) Active confirmed Problem Preprocedural examination (420295152937116) Preprocedural examination (Z01.818) Active confirmed Problem Gastroesophageal reflux disease (959407082) Gastroesophageal reflux disease, esophagitis presence not specified (K21.9) Active confirmed Problem Constipation (25261063) Constipation, unspecified constipation type (K59.00) Active confirmed Problem Esophageal dysphagia (19026929) Esophageal dysphagia (R13.10) Active confirmed Plan Of Treatment Pending Test Test Name Order Date GI BIOPSY 07/08/2019 Future Test Test Name Order Date COLONOSCOPY 03/14/2019 Insurance Providers Payer Name Payer Address Payer Phone Subscriber Number Group Number Insured Name Patient Relationship to Insured Coverage Start Date Coverage End Date [facility] [address] [address] [place], [place] [id number] ROSA LO Self - patient is the [...]
== END 2025-09-26 09:58 | disposition home or self-care (01) ==
LOC: HO.HMCH 08:55
PROVIDERS: PCP Internal Medicine; Visit Provider Student in an Organized Health Care Education/Training Program
DX: Z00.00 Encounter for general adult medical examination without abnormal findings (principal); G47.00 Insomnia, unspecified; K59.00 Constipation, unspecified; Z79.899 Other long term (current) drug therapy; Z23 Encounter for immunization

== ENCOUNTER → 2025-09-26 08:54 | Outpatient (BNVA) | payer BC, MEDICAID, OTHER, SELFPAY | PROVIDERS: PCP Internal Medicine; Visit Provider Student in an Organized Health Care Education/Training Program | DX: Z00.00 Encounter for general adult medical examination without abnormal findings (principal); F41.1 Generalized anxiety disorder; G47.00 Insomnia, unspecified; K59.00 Constipation, unspecified; Z23 Encounter for immunization; Z79.899 Other long term (current) drug therapy | CPT/HCPCS: 90471; 90715 ==

== ENCOUNTER 2025-10-27 09:29 | Outpatient (AMB) | payer BC, MEDICAID, SELFPAY ==
[2025-10-27 10:40] VITALS: BP 118/80; PULSE 59; TEMP 36.7; O2SAT 100; BMI 30.5
--- NOTE | 2025-10-27 10:40 | AM.OFFWIN_ITS ---
Intake Vital Signs 10/27/25 10:40 Height 5 ft 2 in Weight 167 lb BMI 30.5 BP 118/80 Blood Pressure Location Rt brachial Position Sitting Pulse 59 Pulse Source Pulse Oximeter Temp 98.1 F Temp Source Oral Pulse Oximetry (%) 100 Oxygen Delivery Method Room Air Intake Visit Reasons: EP pain in both ears, Headcahes Intake Note: pt presents with bilateral ear pain, uvula swelling with sore throat, head pressure, sinus pressure headaches x2 days, dry coughing starting today Patient Tobacco Use Status: Former Tobacco user Allergies cephalexin (Keflex) Allergy (Unknown, Verified 10/27/25 10:43) Unknown codeine Allergy (Unknown, Verified 10/27/25 10:43) Unknown Sulfa (Sulfonamide Antibiotics) Allergy (Unknown, Verified 10/27/25 10:43) Vertigo, rash sulfamethoxazole (From Bactrim) Allergy (Verified 10/27/25 10:43) Rash trimethoprim (From Bactrim) Allergy (Verified 10/27/25 10:43) Rash Do you need a note to return to daycare/school/sports/work: Yes HPI HPI Comments History of Present Illness Details History of Present Illness - The patient is a 54 year old female pr esenting with sinus pressure and congestion. - She reports first feeling symptoms on night, which progressed through Monday. - On Monday, her uvula was severely sw ollen, causing difficulty swallowing, and she also experienced chills and felt warm, suggestive of a fever. - Since Monday, she has had persistent ear pain, headache, sinus pressure, and eye pain. - She has been taking ibuprofen and Airb orne for her symptoms. - The patient has a history of developin g asthma when she is sick, but she has not experienced any wheezing or required her inhaler with this current illness. - She reports allergies to Bactrim and K eflex (sulfa drugs) but has previously taken Augmentin with associated nausea. - She has a history of kacey RSV a nnually but has not received the vaccine. 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 - She has no fever, chills, CP, SOB, abd pain, n/v/d. - She is unsure of sick contacts. Physical Exam General: Cooperative, healthy appearing, comfortable, no acute distress and well developed Head: Normal to inspection Ears: Hearing grossly normal bilaterally. No tragus or mastoid tenderness noted. Auditory canals clear bilaterally. TM's normal, not bulging. No fluid noted. Nose: Normal external nose present. Moist mucosa. Turbinates normal bilaterally, not boggy. Face and sinus: Tenderness to palpation of the frontal and maxillary sinuses bilaterally. Neck: Normal visual inspection and Yes full ROM. No lymphadenopathy noted. Respiratory: Normal respiratory effort and able to speak in complete sentences. Clear to auscultation bilaterally Cardiovascular: Regular rate and rhythm. Normal S1 and S2 GI: Normal to inspection. Soft to palpation and nontender, nondistended. No guarding noted. Skin: No rashes or lesions noted [facility] Medical History Physical exam Strain of right triceps muscle Anxiety Anxiety Surgical History History of ectopic History of elbow surgery H/O left knee surgery History of umbilical hernia repair Family History Father Medical history unknown Mother Medical history unknown Family/Other Hyperlipidemia Diabetes Social History Household Members: Children Housing: House Are you a primary child care centre manager to a significant other at home: No Do you presently have visiting nurse or other home services: No Alcohol intake: current Alcohol intake frequency: a few times a week Alcohol type: wine Patient Tobacco Use Status: Former Tobacco user Tobacco use type: Cigarette e-Cigarette/Vaping Use: Never Used Second Hand Smoke Exposure: No service: No Current occupational status: employed 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 Current occupational exposures/hazards: No Cognitive needs: No Hearing needs: No Vision needs: No Review of Systems Const All systems reviewed & are unremarkable except as noted in HPI and below Physical Exam Vital Signs: Last Vital Signs Temp 98.1 F 10/27/25 10:40 Pulse 59 10/27/25 10:40 BP 118/80 10/27/25 10:40 Pulse Ox 100 10/27/25 10:40 Oxygen Delivery Method Room Air 10/27/25 10:40 BMI result Body Mass Index 30.5 Assessment & Plan Assessment & Plan (1) Sinus congestion: Code(s): R09.81 - Nasal congestion Plan Most likely sinusitis vs URI vs covid vs flu vs RSV plan - will order a covid/flu/RSV swab - tylenol or motrin as needed - will start her on Augmentin BID for 7 days - flonase and zyrtec D daily - prednisone burst for 5 days - will call her with the results - follow up with PCP Orders: Orders SARS-CoV2/FLU/RSV Today R09.89 - Other specified symptoms and signs involving the circulatory and respiratory systems Medications: New amoxicillin-pot clavulanate 875-125 mg 1 tab PO Q12H 14 tabs 0RF cetirizine-pseudoephedrine 5-120 mg ER 1 tab PO BID 14 tabs 0RF 7 days fluticasone propionate 50 mcg/actuation administer into each nostril 1 spray intranasal Q12H 16 grams 0RF prednisone 40 mg (2 x 20 mg) PO DAILY 10 tabs 0RF 5 days Coding Level of Care Code Est Pt Level 3 (28240) Diagnoses Sinus congestion R09.81
== END 2025-10-27 11:50 | disposition home or self-care (01) ==
PROVIDERS: PCP Internal Medicine; Visit Provider Physician Assistant Medical
DX: R09.81 Nasal congestion (principal)

== ENCOUNTER 2025-10-27 09:29 | Outpatient (REF) | payer BC, MEDICAID, SELFPAY ==
[2025-10-27 14:54] LABS: Resp Syncy Virus RNA Qual PCR NEGATIVE (Negative); SARS COV2 PCR INHOUSE NEGATIVE (Negative)
== END 2025-10-27 09:30 | disposition home or self-care (01) ==
LOC: HO.LNP 09:29
PROVIDERS: Physician Assistant Medical; PCP Internal Medicine
DX: Z03.818 Encounter for observation for suspected exposure to other biological agents ruled out (principal)
CPT/HCPCS: 87637